=== PATIENT | female | born 1970 | race Caucasian/White ===

== ENCOUNTER 2022-08-25 12:18 | Inpatient (IN) | payer OTHER, BC, SELFPAY ==
[2022-08-25] VITALS (11 sets, daily range): BP systolic 114–172; BP diastolic 64–95; PULSE 69–98; RESP 14–22; TEMP 36.1–36.8; O2SAT 69–100; BMI 44.1
--- NOTE | ~2022-08-25 | CT_ITS ---
EXAMINATION: CT brain wo con DATE: 08/25/2022 14:26 INDICATION: Head injury. TECHNIQUE: Computed tomography (CT) of the head was performed without intravenous contrast. The mA wa s adjusted according to patient size. Iterative reconstruction technique was employed. The dose-lengt h product was 681.00 mGy-cm. COMPARISON: None FINDINGS: There is a large distribution of low-attenuation involving the right frontotemporal parieta l occipital region in the expected distribution of right middle cerebral artery. There is no intracra nial hemorrhage or abnormal mass lesion. The ventricles are normal in size. There is a right otomasto id effusion. There is a left mastoid effusion. There is mucosal thickening in the paranasal sinuses. The orbits are normal. There is a left-sided face hematoma. IMPRESSION: 1. Large acute infarct in the distribution of right middle cerebral artery. Reviewed, dictated and finalized at location E.
--- NOTE | ~2022-08-25 | CT_ITS ---
CT Facial Bones and Cervical Spine Clinical Indication: Trauma Technique: Contiguous axial scans were obtained through the facial bones and cervical spine followed by coronal and sagittal reconstructions. Dose reduction technique was used on this scan by utilizing automated exposure control and iterative reconstruction technique. The dose-length product (DLP) was 658.05 mGy-cm. Findings: CT facial bones: There is mild motion artifact. No definite fractures are identified. The visualized paranasal sinuses are clear. Intraorbital soft tissues appear normal. There is soft tissue swelling i n the left periorbital region and left maxillary region, with small hematoma present. CT cervical spine: Exam degraded by motion artifact. No no definite fractures or subluxation. Unrema rkable visualized bony structures. The intervertebral disc spaces are preserved. No prevertebral sof t tissue swelling. Impression: No fracture is seen in the facial bones. Soft tissue swelling and hematoma formation in the left periorbital region and left maxillary region. No definite fracture or subluxation of the cervical spine. Exam significantly degraded by motion blanco fact. Reviewed, dictated and finalized at location M. Impression: No fracture is seen in the facial bones. Soft tissue swelling and hematoma formation in the left periorbital region and left maxillary region. No definite fracture or subluxation of the cervical spine. Exam significantly d egraded by motion artifact.
--- NOTE | ~2022-08-25 | CT_ITS ---
EXAMINATION: CT brain wo con DATE: 08/28/2022 09:02 INDICATION: Altered mental status. TECHNIQUE: Computed tomography (CT) of the head was performed without intravenous contrast. The mA wa s adjusted according to patient size. Iterative reconstruction technique was employed. The dose-lengt h product was 1664.67 mGy-cm. COMPARISON: Head CT 08/25/2022 FINDINGS: There is a large distribution of low-attenuation involving the right frontotemporal parieta l occipital region and right insula, consistent with acute infarct. There is no intracranial hemorrha ge or abnormal mass lesion. The ventricles are normal in size. There is mild mucosal thickening in th e paranasal sinuses. The orbits are normal. There is a left face hematoma. There is a right mastoid e ffusion. IMPRESSION: 1. Large acute infarct in the distribution of right middle cerebral artery, stable in size from 2022. Reviewed, dictated and finalized at location A. IMPRESSION: 1. Large acute infarct in the distribution of right middle cerebral artery, sta ble in size from 08/25/2022.
--- NOTE | ~2022-08-25 | CT_ITS ---
EXAMINATION: CTA brain carotid DATE: 08/25/2022 15:12 INDICATION: Right-sided cerebral infarct. TECHNIQUE: Computed tomographic angiography (CTA) of the head was performed with 100 mL Omnipaque-350 intravenous contrast. CTA of the neck was performed with intravenous contrast. Automated exposure co ntrol and iterative reconstruction technique were employed. The dose-length product was 1176.06 mGy-c m. Maximum intensity projection and volume rendered 3D-reconstructions were created by the techncindy hair on a separate workstation. COMPARISON: Head CT 08/25/2022 FINDINGS: HEAD CTA: There is no intracranial hemorrhage or abnormal mass lesion. The ventricles are normal in s ize. There is mucosal thickening in the paranasal sinuses. The orbits are normal. There is a hematoma in the left side of the face. There is a right otomastoid effusion. There is a left mastoid effusion . The vertebral arteries are codominant. There is no significant stenosis of basilar artery or the po sterior cerebral arteries. There is no significant stenosis of the intracranial internal carotid everett deborah or anterior cerebral arteries. Anterior communicating artery is normal. The posterior communicat ing arteries are normal. There is no significant stenosis of the middle cerebral arteries. There is a large distribution of cortical hyperemia in the right frontotemporal parietal occipital region and r ight insula. There is multifocal dental disease. NECK CTA: The visualized portions of lungs demonstrate mild atelectasis. There are no pathologically enlarged lymph nodes. There is no significant stenosis of the vertebral arteries. There is no visible plaque in the proximal internal carotid arteries. There is 0% stenosis of the proximal right interna l carotid artery relative to normal distal artery lumen diameter (NASCET criteria). There is 0% steno sis of the proximal left internal carotid artery relative to normal distal artery lumen diameter. The re is mild cervical spondylosis. IMPRESSION: 1. Large distribution of cortical hyperemia in the right frontotemporal parietal occipital region and right insula where low attenuation was described on the recent noncontrast CT, consistent with acute infarct. 2. No aneurysm or significant intracranial calcinosis. 3. 0% stenosis of the proximal internal carotid arteries relative to normal distal artery lumen diame ters (NASCET criteria). 4. Dental disease. Reviewed, dictated and finalized at location E. IMPRESSION: 1. Large distribution of cortical hyperemia in the right frontotemporal parieta l occipital region and right insula where low attenuation was described on the recent noncontrast CT, consistent with acute infarct. 2. No aneurysm or significant intracranial calcinosis. 3. 0% stenosis of the proximal internal carotid arteries relative to normal dis sulma artery lumen diameters (NASCET criteria). 4. Dental disease.
--- NOTE | ~2022-08-25 | CT_ITS ---
EXAMINATION: CT chest abdomen pelvis w con DATE: 08/25/2022 14:30 INDICATION: Left chest and abdominal pain. Fall. TECHNIQUE: Computed tomography (CT) of the chest, abdomen, and pelvis was performed with 100 mL Omnip aque 350 intravenous contrast. Automated exposure control and iterative reconstruction technique were employed. The dose-length product was 1833.22 mGy-cm. COMPARISON: None FINDINGS: CHEST CT: The lungs demonstrate mild atelectasis. No pleural effusion. The heart size is normal. No pericardial effusion. Main pulmonary is enlarged, consistent with pulmonary arterial hypertension. There is mild thoracic spondylosis. ABDOMEN/PELVIS CT: The liver and spleen are normal. There are gallstones in the gallbladder. The pancreas, adrenal gland s, and right kidney are normal. There are cysts in left kidney measuring up to 12 mm. The appendix is normal. There are no dilated loops of bowel. There is mild lumbar spondylosis. L3 is a limbus verteb ra. IMPRESSION: 1. Cholelithiasis. Reviewed, dictated and finalized at location E. IMPRESSION: 1. Cholelithiasis.
--- NOTE | 2022-08-25 13:03 | ED.FALL ---
HPI - Fall General Chief Complaint: Fall Stated Complaint: rolled out of bed Time Seen by Provider: 08/25/22 12:20 History of Present Illness HPI Narrative: 52-year-old female present [facility] after having a fall from her bed and landing on her left side. Patient is primarily nonverbal from her prior CVA. Patient is able to answer yes/no questions. Patient states that she is having head and neck pain. Patient was sent to the ED after having a ground-level fall. Family states that the patient is at her baseline but has had some subtle changes in her behavior and has been more agitated over the last 3 days. Related Data Home Medications Medication Instructions Recorded Confirmed albuterol sulfate 90 mcg/actuation 2 puff inhalation QID PRN 08/25/22 08/25/22 aerosol inhaler (Ventolin HFA) Shortness Of Breath Or Wheezing apixaban 5 mg tablet (Eliquis) 5 mg PO BID 08/25/22 08/25/22 atorvastatin 40 mg tablet 40 mg PO HS 08/25/22 08/25/22 budesonide-formoterol HFA 80 2 puff inhalation BID 08/25/22 08/25/22 mcg-4.5 mcg/actuation aerosol inhaler celecoxib 100 mg capsule (Celebrex) 100 mg PO DAILY 08/25/22 08/25/22 enalapril maleate 5 mg tablet 5 mg PO DAILY 08/25/22 08/25/22 oxycodone 5 mg tablet 5 mg PO Q6H PRN Pain 08/25/22 08/25/22 paroxetine HCl 30 mg tablet 30 mg PO DAILY 08/25/22 08/25/22 trazodone 50 mg tablet 50 mg PO HS PRN Insomnia 08/25/22 08/25/22 Allergies Allergy/AdvReac Type Severity Reaction Status Date / Time MEPERIDINE HCL Allergy Mild Hives Uncoded 08/25/22 19:05 Review of Systems Review of Systems: ROS unobtainable: Yes unobtainable due to medical condition PMFSH Past Medical History Medical History (Updated 08/25/22 @ 21:38 by Jorge Claudio MD) Bronchitis Chronic pain Depression with anxiety Hyperlipidemia Surgical History Surgical History (Updated 08/25/22 @ 19:52 by Nilsa Nolan NP) Surgical history unknown Family History Family History (Updated 08/25/22 @ 19:52 by Nilsa Nolan NP) Unknown No problems noted. Social History Social History (Updated 08/25/22 @ 19:55 by Nilsa Nolan NP) Social History: she lives in [place] and has a daughter chacha casanova. her is clarence kothari. she is listed as a full code Exam Narrative: APPEARANCE: Well-appearing HEAD: normocephalic, atraumatic. EYES: PERRLA/EOMI, conjunctivae clear. NOSE: Normal no drainage NECK: Supple. No adenopathy, no masses. RESPIRATORY: Airway patent, respirations nonlabored. Clear to auscultation bilaterally, no rales, rhonchi, wheezing. CARDIOVASCULAR: Regular rate and rhythm without murmurs rubs or gallops. ABDOMINAL: Soft, nontender, nondistended, normal bowel sounds MUSCULOSKELETAL: Moves all extremities. Strength/ROM intact, No edema, No calf tenderness. NEURO: Alert. Left-sided deficit. Unable to do perform a full neuro exam due to lack of patient cooperation. SKIN: Warm, dry. Normal Color Course Course Emergency Course: 52-year-old female presented [facility] for [facility] after having a fall from bed. CT showed concern for a MCA distribution acute infarct. CTA showed no evidence of acute thrombus. While the patient was sent in for evaluation after the head injury family states that the patient has had some change in behavior over the last 3 days. Patient does take Eliquis. Case was discussed with neurology and patient is being admitted to the hospitalist. Vital Signs Vital signs: Vital Signs Temperature 96.9 F L 08/25/22 12:23 Pulse Rate 72 08/25/22 12:23 Respiratory Rate 22 H 08/25/22 12:23 Blood Pressure 164/93 H 08/25/22 12:23 Pulse Oximetry 96 08/25/22 12:23 Oxygen Delivery Room Air 08/25/22 12:23 Temperature 97.6 F 08/25/22 20:13 Pulse Rate 95 08/25/22 20:13 Respiratory Rate 18 08/25/22 20:13 Blood Pressure 114/64 08/25/22 20:13 Pulse Oximetry 95
--- NOTE | 2022-08-25 13:29 | PC.NURSE ---
Pt attempting to rip off c collar at this time. Rolling on on bed. Pt incontinent of diarrhea. Cleaned pt up, changed linens and attempted to reposition pt. Pt still yelling and ripping padding off of c collar.
[2022-08-25 13:35] LABS: Basophils Percent Auto 0.4 % (0.2-1.2); Hematocrit 36.7 % (37.0-47.0); Hemoglobin 11.8 g/dL (12.0-15.0); Immature Granulocyte Absolute 0.05 K/mm3 (0.00-0.031); Immature Granulocyte Percent A 0.6 % (0-0.5); Lymphocytes Absolute Auto 1.28 K/mm3 (0.9-3.2); Lymphocytes Percent Auto 15.6 % (18.3-44.2); Mean Corpuscular HGB Conc 32.2 g/dl (32-36); Mean Corpuscular Hemoglobin 32.2 pg (26-34); Mean Platelet Volume 11.5 fl (7.4-10.4); Monocytes Absolute Auto 0.6 K/mm3 (0.1-0.6); Monocytes Percent Auto 7.6 % (2.6-8.5); Neutrophils Absolute Auto 6.2 K/mm3 (1.3-6.7); Neutrophils Percent Auto 75.8 % (45.5-73.1); Platelet Count Result 337 k/mm3 (150-375); Red Blood Count 3.67 M/mm3 (4.2-5.4); Red Cell Distribution Width 13.8 % (11.5-14.5); White Blood Count 8.2 K/mm3 (4.5-10.0)
[2022-08-25 14:15] LABS: Alanine Aminotransferase 70 U/L (6-35); Alkaline Phosphatase 69 U/L (38-126); Anion Gap 3 mmol/L (8-16); Aspartate Amino Transferase 63 U/L (14-36); Bilirubin,Total 0.9 mg/dL (0.2-1.3); Blood Urea Nitrogen 17 mg/dL (7-17); Calcium 8.6 mg/dL (8.4-10.2); Carbon Dioxide 33 mmol/L (22-30); Chloride 103 mmol/L (98-107); Estimated CRCL calculation 108 ml/min; Estimated Glomerular Filt Rate > 60; Glucose 100 mg/dL (65-110); Potassium 3.9 mmol/L (3.4-5.0); Sodium 139 mmol/L (137-145)
[2022-08-25] MEDS: LORazepam INJ (*CRX) 2 MG/ML VIAL 1 MG IV PUSH (14:55)
--- NOTE | 2022-08-25 15:27 | PC.NURSE ---
Pt placed on 2 L NC O2 and repositioned due to O2 69%, O2 increased to 98% on 2 L NC.
--- NOTE | 2022-08-25 17:15 | PM.IMHP ---
H&P: HPI History of Present Illness Date/Time: 08/25/22 17:15 Chief Complaint: fall Narrative: this is a 52-year-old female patient who has a history of CVA. She is also nonverbal from her previous CVA. It was reported that the patient fell out of the bed it was brought to the emergency room for evaluation. The CTA showed no evidence of acute thrombus. Her last known normal was approximately 3 days ago. The patient does take Eliquis. She has a black eye to the left eye . Her H&H is 11.8 and 36.7. ast and ALT 70. Head and neck CTA was read as the following1. Large distribution of cortical hyperemia in the right frontotemporal parietal occipital region and right insula where low attenuation was described on the recent noncontrast CT, consistent with acute infarct. 2. No aneurysm or significant intracranial calcinosis. 3. 0% stenosis of the proximal internal carotid arteries relative to normal distal artery lumen diameters (NASCET criteria). 4. Dental disease. chest abdomen pelvis was read as cholelithiasis. Head cervical spine facial bones was read as no acute fracture is seen in the facial bones. Soft tissue swelling and hematoma formation the left periorbital region and left axillary region. No definite fracture or subluxation of the cervical spine. Exam is significantly degraded by motion artifact. Head CT was read as large acute infarct in the distribution of right middle cerebral artery. Neurology has been consulted. The patient was given Ativan in the emergency room. The patient was difficult to arouse due to the medication. The patient was snoring loudly. She was noted to have a bruise to the left periorbital area and dry mucous membranes. Once the patient was admitted to the nursing floor, the staff stated that the patient was complaining of a headache. The patient is being admitted for observation status on the date of service of 08/25/2022. Review of Systems Review of Systems: All systems reviewed & are unremarkable except as noted in HPI and below Constitutional: Constitutional: Reports as per HPI and Reports no additional constitutional complaints Eyes: Eyes: Reports as per HPI and Reports no additional eye complaints ENT: Reports system reviewed and no additional complaints, except as documented and Reports Normal hearing present Cardiovascular: Cardiovascular: Reports no additional cardiovascular complaints Respiratory: Respiratory: Reports no additional respiratory complaints and Reports no additional respiratory complaints Gastrointestinal: Gastrointestinal: Reports as per HPI and Reports no additional gastrointestinal complaints Musculoskeletal: Musculoskeletal: Reports no additional musculoskeletal complaints Integumentary/Breasts: Skin/Breast: Reports system reviewed and no additional complaints, except as docu and Reports as per HPI Neurologic: Reports system reviewed and no additional complaints, except as documented, Reports as per HPI and Reports Normal hearing present Psychiatric: Psychiatric: Reports no additional psychiatric complaints and Reports as per HPI Endocrine: Endocrine: Reports no additional endocrine complaints Hematologic/Lymphatic: Hematologic/Lymphatic: Reports no additional hematologic/lymphatic complaints Allergic/Immunologic: Allergic/Immunologic: Reports no additional allergic/immunologic complaints PMFSH Past Medical History Medical History (Updated 08/25/22 @ 19:52 by Nilsa Nolan NP) Bronchitis Chronic pain Depression with anxiety Hyperlipidemia Surgical History Surgical History (Updated 08/25/22 @ 19:52 by Nilsa Nolan NP) Surgical history unknown Family History Family History (Updated 08/25/22 @ 19:52 by Nilsa Nolan NP) Unknown No problems noted. Social History Social History (Updated 08/25/22 @ 19:55 by Nilsa Nolan NP) Social History: she lives in [place] and has a daughter chacha casanova. her is lawlisa beckett
--- NOTE | 2022-08-25 18:52 | ADMGEN ---
This patient, Rere Loza, was admitted to Medical Room 245-. Patient/family oriented to hospital policies and general routines including ID bracelet, bed and alarms, visiting hours, pain management, procedures, bathroom and other care routines, personal items, smoking policy, room service/diet, and visiting hours. Information on how to activate the Rapid Response Team has been discussed. Patient/Family are encouraged to report perceived risks to care and to ask questions if they do not understand what they are told or what they should do.
[2022-08-26] VITALS (11 sets, daily range): BP systolic 117–146; BP diastolic 65–99; PULSE 62–91; RESP 17–18; TEMP 36.6–36.8; O2SAT 93–100
[2022-08-26 05:39] LABS: Basophils Percent Auto 0.4 % (0.2-1.2); Hematocrit 35.5 % (37.0-47.0); Hemoglobin 11.5 g/dL (12.0-15.0); Immature Granulocyte Absolute 0.04 K/mm3 (0.00-0.031); Immature Granulocyte Percent A 0.5 % (0-0.5); Lymphocytes Absolute Auto 1.52 K/mm3 (0.9-3.2); Lymphocytes Percent Auto 20.8 % (18.3-44.2); Mean Corpuscular HGB Conc 32.4 g/dl (32-36); Mean Corpuscular Volume 98.9 fl (80-100); Mean Platelet Volume 10.6 fl (7.4-10.4); Monocytes Absolute Auto 0.6 K/mm3 (0.1-0.6); Monocytes Percent Auto 7.5 % (2.6-8.5); Neutrophils Absolute Auto 5.2 K/mm3 (1.3-6.7); Neutrophils Percent Auto 70.8 % (45.5-73.1); Platelet Count Result 332 k/mm3 (150-375); Red Blood Count 3.59 M/mm3 (4.2-5.4); Red Cell Distribution Width 13.8 % (11.5-14.5); White Blood Count 7.3 K/mm3 (4.5-10.0)
[2022-08-26 05:50] LABS: Lactic Acid Reflex 0.7 mmol/L (0.7-2.0)
[2022-08-26 05:53] LABS: Alanine Aminotransferase 64 U/L (6-35); Alkaline Phosphatase 78 U/L (38-126); Anion Gap 2 mmol/L (8-16); Aspartate Amino Transferase 55 U/L (14-36); Bilirubin,Total 0.9 mg/dL (0.2-1.3); Blood Urea Nitrogen 16 mg/dL (7-17); Calcium 8.8 mg/dL (8.4-10.2); Carbon Dioxide 37 mmol/L (22-30); Chloride 101 mmol/L (98-107); Estimated CRCL calculation 95 ml/min; Estimated Glomerular Filt Rate > 60; Glucose 104 mg/dL (65-110); Magnesium 2.2 mg/dL (1.6-2.3); Potassium 3.8 mmol/L (3.4-5.0); Sodium 140 mmol/L (137-145)
[2022-08-26] MEDS: CELECOXIB 100 MG CAPSULE PO (09:49)
[2022-08-26] MEDS: ASPIRIN 81 MG ENTERIC TABLET PO (09:49)
[2022-08-26] MEDS: ENALAPRIL MALEATE 5 MG TABLET PO (09:49)
[2022-08-26] MEDS: oxyCODONE HCL (*CRX) 5 MG TAB IR PO (11:50)
--- NOTE | 2022-08-26 11:56 | PM.IMPN ---
Progress Note: A&P Assessment and Plan (1) CVA (cerebral vascular accident): Code(s): I63.9 - Cerebral infarction, unspecified Status: Acute Assessment and Plan: Patient presented to the ED due to having a fall. She has had recent behavioral changes and increased agitation. CT head revealing acute infarct, and 0% stenosis of the proximal internal carotid arteries Neurology consulted MRI of the brain ordered Echocardiogram ordered Patient not a candidate for tPA. Patient to continue aspirin and hold Eliquis until neuro has seen her. PT OT and speech evaluation (2) Depression with anxiety: Code(s): F41.8 - Other specified anxiety disorders Status: Acute Assessment and Plan: Continue with paxil (3) Chronic pain: Code(s): G89.29 - Other chronic pain Status: Acute Assessment and Plan: continue with Celebrex and oxycodone (4) Bronchitis: Code(s): J40 - Bronchitis, not specified as acute or chronic Status: Acute Assessment and Plan: continue with inhaler (5) Hyperlipidemia: Code(s): E78.5 - Hyperlipidemia, unspecified Status: Acute Assessment and Plan: continue with Lipitor Subjective Date/time seen: 08/26/22 11:56 Interval history: patient is not cooperative and nonverbal. She is unable to complete review of systems. Patient appears to be sleepy. She seems comfortable not in any pain. unable to follow commands. Exam Narrative: GENERAL: Comfortable, no acute distress, morbid obesity HENMT: moist mucous membranes EYES: EOM intact b/l NECK: no lymphadenopathy RESPIRATORY: clear to auscultation CARDIO: Distant heart sounds SKIN: no rashes EXTREMITIES: no edema, redness or tenderness Objective Data Vital Signs Vital Signs: Vital Signs - 24 hr 08/25/22 12:23 08/25/22 15:25 08/25/22 15:28 Temperature 96.9 F L Pulse Rate 72 69 Respiratory Rate 22 H 21 H Blood Pressure 164/93 H 129/67 Pulse Oximetry 96 69 L 98 Oxygen Delivery Room Air Oxygen Flow Rate 08/25/22 16:15 08/25/22 15:27 08/25/22 15:14 Temperature Pulse Rate 75 75 Respiratory Rate 14 19 Blood Pressure 128/78 139/79 Pulse Oximetry 100 98 98 Oxygen Delivery Nasal Cannula Oxygen Flow Rate 2 08/25/22 18:00 08/25/22 19:00 08/25/22 18:30 Temperature 98.2 F Pulse Rate 75 84 Respiratory Rate 17 16 Blood Pressure 129/68 172/95 H Pulse Oximetry 99 100 100 Oxygen Delivery Nasal Cannula Oxygen Flow Rate 2 08/25/22 20:13 08/25/22 22:30 08/25/22 20:00 Temperature 97.6 F Pulse Rate 95 98 Respiratory Rate 18 20 Blood Pressure 114/64 Pulse Oximetry 95 95 Oxygen Delivery Autopap Room Air Oxygen Flow Rate 08/26/22 04:00 08/26/22 06:00 08/26/22 09:52 Temperature 98.2 F Pulse Rate 71 91 76 Respiratory Rate 18 17 Blood Pressure 117/81 141/70 H Pulse Oximetry 95 100 Oxygen Delivery Oxygen Flow Rate 08/26/22 08:00 08/26/22 08:00 Temperature Pulse Rate 86 Respiratory Rate Blood Pressure Pulse Oximetry 100 Oxygen Delivery Nasal Cannula Oxygen Flow Rate 3 Intake/Output Intake/Output: Intake & Output 08/23/22 08/24/22 08/25/22 08/26/22 23:59 23:59 23:59 23:59 Intake Total 120 Balance 120 Meds/Results Medications: Active Medications Generic Name Dose Route Start Last Admin Trade Name Freq PRN Reason Stop Dose Admin Albuterol 2 puff 08/25/22 19:41 Albuterol Sulfate (*Sp) Aerosol 1 Puff INHALATION QID PRN Shortness Of Breath Or Wheezing Aspirin 81 mg 08/26/22 09:00 08/26/22 09:49 Aspirin 81 Mg Enteric Tablet PO 81 mg QAM MICHAELLE Administration Atorvastatin Calcium 40 mg 08/25/22 21:00 08/26/22 04:40 Atorvastatin 40 Mg Tablet PO Not Given HS [facility] Celecoxib 100 mg 08/26/22 09:00 08/26/22 09:49 Celecoxib 100 Mg Capsule PO 100 mg DAILY MICHAELLE Administration Enalapril Maleate
--- NOTE | 2022-08-26 12:33 | PC.NURSE ---
Variety Lathe Operator went through Karen Taylor's ([employer]) charting and agree with assessments findings
[2022-08-26] MEDS: PARoxetine 20 MG TABLET 60 MG PO (12:38)
[2022-08-26] MEDS: LORazepam INJ (*CRX) 2 MG/ML VIAL 0.5 MG IV PUSH (13:59)
--- NOTE | 2022-08-26 14:24 | PCSTNOTE ---
Orders for bedside communication evaluation completed. Patient is asleep and unable to stay awake. Will try in the morning.
[2022-08-26] MEDS: FLUTICASONE/SALMETEROL 45-21 MCG INHALER 1 PUFF 2 PUFF INHALATION (20:34)
[2022-08-26] MEDS: ATORVASTATIN 40 MG TABLET PO (21:00)
[2022-08-27] VITALS (13 sets, daily range): BP systolic 125–142; BP diastolic 60–99; PULSE 48–98; RESP 18; TEMP 36.2–36.7; O2SAT 90–100
[2022-08-27] MEDS: oxyCODONE HCL (*CRX) 5 MG TAB IR PO ×3 (00:38→17:06)
[2022-08-27 05:39] LABS: Basophils Percent Auto 0.3 % (0.2-1.2); Hematocrit 33.6 % (37.0-47.0); Immature Granulocyte Absolute 0.03 K/mm3 (0.00-0.031); Immature Granulocyte Percent A 0.5 % (0-0.5); Lymphocytes Absolute Auto 1.47 K/mm3 (0.9-3.2); Mean Corpuscular HGB Conc 32.7 g/dl (32-36); Mean Corpuscular Hemoglobin 32.4 pg (26-34); Mean Corpuscular Volume 98.8 fl (80-100); Mean Platelet Volume 10.4 fl (7.4-10.4); Monocytes Absolute Auto 0.5 K/mm3 (0.1-0.6); Monocytes Percent Auto 8.5 % (2.6-8.5); Neutrophils Absolute Auto 4.3 K/mm3 (1.3-6.7); Neutrophils Percent Auto 67.7 % (45.5-73.1); Platelet Count Result 294 k/mm3 (150-375); Red Cell Distribution Width 13.9 % (11.5-14.5); White Blood Count 6.4 K/mm3 (4.5-10.0)
[2022-08-27 05:57] LABS: Alanine Aminotransferase 54 U/L (6-35); Albumin Level 3.7 g/dL (3.5-5.1); Alkaline Phosphatase 68 U/L (38-126); Anion Gap 2 mmol/L (8-16); Aspartate Amino Transferase 46 U/L (14-36); Bilirubin,Total 0.8 mg/dL (0.2-1.3); Blood Urea Nitrogen 16 mg/dL (7-17); Calcium 8.5 mg/dL (8.4-10.2); Carbon Dioxide 35 mmol/L (22-30); Chloride 102 mmol/L (98-107); Estimated CRCL calculation 108 ml/min; Estimated Glomerular Filt Rate > 60; Glucose 99 mg/dL (65-110); Potassium 3.6 mmol/L (3.4-5.0); Sodium 139 mmol/L (137-145)
[2022-08-27] MEDS: FLUTICASONE/SALMETEROL 45-21 MCG INHALER 1 PUFF 2 PUFF INHALATION ×2 (07:17→19:39)
[2022-08-27] MEDS: ASPIRIN 81 MG ENTERIC TABLET PO (09:04)
[2022-08-27] MEDS: PARoxetine 20 MG TABLET 60 MG PO (09:04)
[2022-08-27] MEDS: CELECOXIB 100 MG CAPSULE PO (09:04)
[2022-08-27] MEDS: ENALAPRIL MALEATE 5 MG TABLET PO (09:04)
[2022-08-27] MEDS: CLOPIDOGREL BISULFATE 75 MG TABLET PO (09:04)
[2022-08-27] MEDS: CYCLOBENZAPRINE HCL 10 MG TABLET PO ×2 (10:19→18:16)
--- NOTE | 2022-08-27 10:54 | PCPTNOTE ---
Patient has bedrest orders, OT talked to hospitalist to get them removed.
--- NOTE | 2022-08-27 11:18 | PC.NURSE ---
Machine Maintenance reviewed Karen Taylor's ([employer]) charting and agrees with assessment findings
[2022-08-27] MEDS: HYDROcodone/acetaminophen (*CRX) 7.5-325 MG TABLET 1 TAB PO (11:42)
[2022-08-27] MEDS: BISACODYL 10 MG SUPPOSITORY RECTAL (11:43)
--- NOTE | 2022-08-27 12:10 | PCSTNOTE ---
Bedside communication evaluation attempted. Patient not responsive to voice commands.
--- NOTE | 2022-08-27 12:43 | WPDNEURCNPN ---
Assessment and Plan Assessment and plan (1) Acute CVA (cerebrovascular accident): Code(s): I63.9 - Cerebral infarction, unspecified Status: Acute Plan 1 right hemispheric stroke for which is being reported she already has had but definitely by CTA looks like it is involving 2 she is already taking apixaban and aspirin I was going to add the Plavix but because of the apixaban I will discontinue that to avoid the bleeding 3 we can get the echocardiogram when feasible [address] scan of the head tomorrow morning to make sure there is no evolving bleed. Consult date: 08/27/22 HPI: Rere Casanova is a 52 year old female Hospital through the emergency room on transfer from the local [facility] after having a fall from her bed and landing on her left side patient is reportedly nonverbal from a previous cerebrovascular accident and only able to answer yes or no questions she was complaining of head and neck pain was sent to the emergency room after having a ground level fall but was noted lead E at her baseline with subtle changes in her behavior and also history of agitation over the last 72 hours. Her medications included apixaban 5 mg twice a day atorvastatin 40 mg at an Elavil 5 mg daily Oxygen 30 mg daily and trazodone 50 mg at night p.r.n. she has ongoing history of chronic pain with hyperlipidemia anxiety with depression and carries a full code status. On initial evaluation in the emergency room CTA documented no evidence of acute thrombus but showed the stroke like distal none the distribution of right middle cerebral artery her vital signs were stable except blood pressure being 164/93 CBC was normal, BMP was normal, and mastoids scan was with AST of [address] scan of the head documented large acute infarct in the distribution of the right middle cerebral artery CT scan of cervical spine and facial bones were negative for the fracture chest and abdomen CT was consistent of cholelithiasis head and neck CTA documented large distribution of cortical hyper EE Kendra in the right fronto temporal parietal region and right insula where low at admission was described on the recent non contrast CT consistent with acute infarct no aneurysm or significant intracranial calcium no cyst 0% stenosis of the proximal internal carotid artery PMFSH Past Medical History Medical History (Updated 08/25/22 @ 21:38 by Jorge Claudio MD) Bronchitis Chronic pain Depression with anxiety Hyperlipidemia Surgical History Surgical History (Updated 08/25/22 @ 19:52 by Nilsa Nolan NP) Surgical history unknown Family History Family History (Updated 08/25/22 @ 19:52 by Nilsa Nolan NP) Unknown No problems noted. Social History Social History (Updated 08/25/22 @ 19:55 by Nilsa Nolan NP) Social History: she lives in [place] and has a daughter chacha casanova. her is clarence kothari. she is listed as a full code Meds Home Medications and Allergies Home Medications Medication Instructions Recorded Confirmed Type albuterol sulfate 90 mcg/actuation 2 puff inhalation QID PRN 08/25/22 08/25/22 History aerosol inhaler (Ventolin HFA) Shortness Of Breath Or Wheezing apixaban 5 mg tablet (Eliquis) 5 mg PO BID 08/25/22 08/25/22 History atorvastatin 40 mg tablet 40 mg PO HS 08/25/22 08/25/22 History budesonide-formoterol HFA 80 2 puff inhalation BID 08/25/22 08/25/22 History mcg-4.5 mcg/actuation aerosol inhaler celecoxib 100 mg capsule (Celebrex) 100 mg PO DAILY 08/25/22 08/25/22 History enalapril maleate 5 mg tablet 5 mg PO DAILY 08/25/22 08/25/22 History oxycodone 5 mg tablet 5 mg PO Q6H PRN Pain 08/25/22 08/25/22 History paroxetine HCl 30 mg tablet 30 mg PO DAILY 08/25/22 08/25/22 History trazodone 50 mg tablet 50 mg PO HS PRN Insomnia 08/25/22 08/25/22 History Allergies Allergy/AdvReac Type Severity Reaction Status Date / Time MEPERIDINE HCL Allergy Mild Hives Uncoded 08/25/22 19:05
--- NOTE | 2022-08-27 13:04 | PM.IMPN ---
Progress Note: A&P Assessment and Plan (1) CVA (cerebral vascular accident): Code(s): I63.9 - Cerebral infarction, unspecified Status: Acute Assessment and Plan: Patient presented to the ED due to having a fall. She has had recent behavioral changes and increased agitation. CT head revealing acute infarct, and 0% stenosis of the proximal internal carotid arteries Neurology consulted MRI cancel due to patient being unable to sit still. Echocardiogram canceled per Neurology for the time being and recommended be done in the future. Patient not a candidate for tPA. Eliquis restarted. Patient not being started on Plavix due to high risk for bleeding. PT OT and speech evaluation Repeat CT scan to the morning. Potential discharge tomorrow. (2) Depression with anxiety: Code(s): F41.8 - Other specified anxiety disorders Status: Acute Assessment and Plan: Continue with paxil (3) Chronic pain: Code(s): G89.29 - Other chronic pain Status: Acute Assessment and Plan: continue with Celebrex and oxycodone (4) Bronchitis: Code(s): J40 - Bronchitis, not specified as acute or chronic Status: Acute Assessment and Plan: continue with inhaler (5) Hyperlipidemia: Code(s): E78.5 - Hyperlipidemia, unspecified Status: Acute Assessment and Plan: continue with Lipitor Subjective Date/time seen: 08/27/22 13:04 Interval history: Patient appears very uncomfortable today. Due to her being nonverbal she is not able to tell me very much. Per Neurology the plan is to repeat CT scan tomorrow to make sure patient is not bleeding into her brain. I would anticipate that if CT scan is normal she could potentially be discharged tomorrow. Review of Systems Review of Systems: ROS unobtainable: Yes unobtainable due to mental status Exam Narrative: GENERAL: Comfortable, no acute distress, morbid obesity HENMT: moist mucous membranes EYES: EOM intact b/l NECK: no lymphadenopathy RESPIRATORY: clear to auscultation CARDIO: Distant heart sounds SKIN: ecchymosis scattered over extremities and left eye EXTREMITIES: no edema, redness or tenderness Objective Data Vital Signs Vital Signs: Vital Signs - 24 hr 08/26/22 13:48 08/26/22 14:01 08/26/22 16:00 Temperature 97.9 F Pulse Rate 78 62 73 Respiratory Rate 18 18 Blood Pressure 146/65 H Pulse Oximetry 100 100 Oxygen Delivery Oxygen Flow Rate 3 Fraction of Inspired Oxygen 32 08/26/22 19:49 08/26/22 20:35 08/26/22 20:00 Temperature 98.2 F Pulse Rate 75 Respiratory Rate 18 Blood Pressure 143/99 H Pulse Oximetry 96 93 Oxygen Delivery Nasal Cannula Nasal Cannula Oxygen Flow Rate 3 3 Fraction of Inspired Oxygen 08/26/22 20:00 08/27/22 00:00 08/26/22 22:30 Temperature Pulse Rate 84 86 Respiratory Rate Blood Pressure Pulse Oximetry Oxygen Delivery Autopap Oxygen Flow Rate Fraction of Inspired Oxygen 08/27/22 04:00 08/27/22 06:00 08/27/22 07:19 Temperature 97.2 F L Pulse Rate 52 L 92 Respiratory Rate 18 Blood Pressure Pulse Oximetry 90 92 Oxygen Delivery Room Air Oxygen Flow Rate Fraction of Inspired Oxygen 08/27/22 08:00 08/27/22 08:00 08/27/22 12:29 Temperature Pulse Rate 75 58 L Respiratory Rate Blood Pressure Pulse Oximetry 92 Oxygen Delivery Nasal Cannula Oxygen Flow Rate 3 Fraction of Inspired Oxygen Intake/Output Intake/Output: Intake & Output 08/24/22 08/25/22 08/26/22 08/27/22 23:59 23:59 23:59 23:59 Intake Total 1280 120 Balance 1280 120 Meds/Results Medications: Active Medications Generic Name Dose Route Start Last Admin Trade Name Freq PRN Reason Stop Dose Admin Albuterol 2 puff 08/25/22 19:41 Albuterol Sulfate (*Sp) Aerosol 1 Puff INHALATION QID PRN Shortness Of Breath Or Wheezing Apixaban 5 mg 05/
--- NOTE | 2022-08-27 13:17 | PCOTNOTE ---
OT reached out to Francia Viera, hospitalist for patient, about removing bedrest orders.
[2022-08-27] MEDS: APIXABAN 5 MG TABLET PO (20:42)
[2022-08-27] MEDS: ATORVASTATIN 40 MG TABLET PO (20:42)
[2022-08-28] VITALS: PULSE 59
[2022-08-28 04:00] VITALS: PULSE 99
[2022-08-28 04:34] LABS: Basophils Percent Auto 0.5 % (0.2-1.2); Hemoglobin 11.9 g/dL (12.0-15.0); Immature Granulocyte Absolute 0.05 K/mm3 (0.00-0.031); Immature Granulocyte Percent A 0.8 % (0-0.5); Lymphocytes Absolute Auto 1.52 K/mm3 (0.9-3.2); Lymphocytes Percent Auto 23.6 % (18.3-44.2); Mean Corpuscular HGB Conc 32.2 g/dl (32-36); Mean Corpuscular Hemoglobin 31.6 pg (26-34); Mean Corpuscular Volume 98.1 fl (80-100); Mean Platelet Volume 10.4 fl (7.4-10.4); Monocytes Absolute Auto 0.5 K/mm3 (0.1-0.6); Monocytes Percent Auto 7.6 % (2.6-8.5); Neutrophils Absolute Auto 4.4 K/mm3 (1.3-6.7); Neutrophils Percent Auto 67.5 % (45.5-73.1); Platelet Count Result 358 k/mm3 (150-375); Red Blood Count 3.77 M/mm3 (4.2-5.4); Red Cell Distribution Width 13.8 % (11.5-14.5); White Blood Count 6.5 K/mm3 (4.5-10.0)
[2022-08-28 04:56] LABS: Alanine Aminotransferase 54 U/L (6-35); Alkaline Phosphatase 74 U/L (38-126); Anion Gap 4 mmol/L (8-16); Aspartate Amino Transferase 50 U/L (14-36); Blood Urea Nitrogen 17 mg/dL (7-17); Calcium 8.7 mg/dL (8.4-10.2); Carbon Dioxide 34 mmol/L (22-30); Chloride 102 mmol/L (98-107); Estimated CRCL calculation 95 ml/min; Estimated Glomerular Filt Rate > 60; Glucose 107 mg/dL (65-110); Potassium 3.8 mmol/L (3.4-5.0); Sodium 140 mmol/L (137-145)
--- NOTE | 2022-08-28 05:33 | PC.NURSE ---
After brushing out patient's hair, this nurse found a new wound on the left side of patient's head. The hair around the wound had been shaved so would was present on arrival, just unable to be seen due to the matted hair. Wound documented on flowsheet, wound team consulted.
[2022-08-28 05:39] VITALS: BP 126/99; PULSE 58; RESP 18; TEMP 36.7; O2SAT 98
--- NOTE | 2022-08-28 07:57 | PCOTNOTE ---
Attempted to see for OT evaluation this AM. Per RN the patient was up all night agitated and is finally resting. Will continue to attempt. She also still has bedrest orders at this time.
[2022-08-28 08:00] VITALS: PULSE 63
--- NOTE | 2022-08-28 08:14 | PCPTNOTE ---
Per chart review, per RN the patient was up all night agitated and is finally resting. Will continue to attempt. She also still has bedrest orders at this time. Will recheck status as able to perform PT evaluation
[2022-08-28 08:26] VITALS: O2SAT 94
[2022-08-28] MEDS: FLUTICASONE/SALMETEROL 45-21 MCG INHALER 1 PUFF 2 PUFF INHALATION (08:26)
[2022-08-28] MEDS: CELECOXIB 100 MG CAPSULE PO (09:28)
[2022-08-28] MEDS: ASPIRIN 81 MG ENTERIC TABLET PO (09:28)
[2022-08-28] MEDS: APIXABAN 5 MG TABLET PO (09:28)
[2022-08-28] MEDS: PARoxetine 20 MG TABLET 60 MG PO (09:28)
[2022-08-28] MEDS: ENALAPRIL MALEATE 5 MG TABLET PO (09:28)
[2022-08-28] MEDS: oxyCODONE HCL (*CRX) 5 MG TAB IR PO (09:29)
--- NOTE | 2022-08-28 10:26 | PM.DS ---
DS: Admitting Diagnosis Discharge Date 08/28/22 Admitting Diagnosis CVA DS: Discharge Diagnosis Discharge Diagnosis (1) CVA (cerebral vascular accident): Code(s): I63.9 - Cerebral infarction, unspecified Status: Acute Assessment and Plan: Patient presented to the ED due to having a fall. She has had recent behavioral changes and increased agitation. CT head revealing acute infarct, and 0% stenosis of the proximal internal carotid arteries Neurology consulted MRI cancel due to patient being unable to sit still. Echocardiogram canceled per Neurology for the time being and recommended be done in the future. Patient not a candidate for tPA. Eliquis restarted. Patient not being started on Plavix due to high risk for bleeding. PT OT and speech evaluation Repeat CT remains unchanged (2) Depression with anxiety: Code(s): F41.8 - Other specified anxiety disorders Status: Acute Assessment and Plan: Continue with paxil (3) Chronic pain: Code(s): G89.29 - Other chronic pain Status: Acute Assessment and Plan: continue with Celebrex and oxycodone (4) Bronchitis: Code(s): J40 - Bronchitis, not specified as acute or chronic Status: Acute Assessment and Plan: continue with inhaler (5) Hyperlipidemia: Code(s): E78.5 - Hyperlipidemia, unspecified Status: Acute Assessment and Plan: continue with Lipitor DS: Summary Hospital Course Hospital Course: This is a 52-year-old female with a past medical history of CVA that rendered her nonverbal, hyperlipidemia anxiety and depression the presented to the ED on 08/25/2022 for evaluation of a fall. Patient does take Eliquis chronically. On presentation patient had multiple bruises. Eliquis was then put on hold. CTA of the head and neck revealing acute infarct and 0% stenosis of the bilateral internal carotid arteries. Neurology consulted. Patient was scheduled to get MRI and echocardiogram. MRI was canceled due to patient unable to sit still through imaging. Echocardiogram deferred to be done as an outpatient per Neurology. PT and OT and speech evaluated patient. Patient did not meet criteria for tPA. Repeat CT scan performed and was unchanged from previous CT. Neurology recommended restarting patient's Eliquis. Spoken with neurologist and he is cleared patient for discharge. Patient's labs and vital signs stable on day of discharge and she is medically cleared. Time Spent with Patient Time attestation: Total time spent providing and/or coordinating discharge services: Exam Narrative: GENERAL: Comfortable, no acute distress, morbid obesity HENMT: moist mucous membranes EYES: EOM intact b/l NECK: no lymphadenopathy RESPIRATORY: clear to auscultation CARDIO: Distant heart sounds SKIN: ecchymosis scattered over extremities and left eye EXTREMITIES: no edema, redness or tenderness DS: Data Data Completed and Pending Labs on day of discharge: Labs from last 24 hours 08/28/22 04:16 WBC 6.5 RBC 3.77 L Hgb 11.9 L Hct 37.0 MCV 98.1 MCH 31.6 MCHC 32.2 RDW 13.8 Plt Count 358 MPV 10.4 Immature Gran % (Auto) 0.8 H Neut % (Auto) 67.5 Lymph % (Auto) 23.6 [place] % (Auto) 7.6 Eos % (Auto) 0.0 Baso % (Auto) 0.5 Lymph # (Auto) 1.52 [place] # (Auto) 0.5 Eos # (Auto) 0.0 Baso # (Auto) 0.0 Abs Immat Gran (auto) 0.05 H Absolute Neuts (auto) 4.4 Absolute Nucleated RBC 0.0 Nucleated RBC % 0.0 Sodium 140 Potassium 3.8 Chloride 102 Carbon Dioxide 34 H Anion Gap 4 L BUN 17 Creatinine 0.80 Estim Creat Clear Calc 95 Estimated GFR > 60 Glucose 107 Calcium 8.7 Total Bilirubin 1.0 AST 50 H ALT 54 H Alkaline Phosphatase 74 Total Protein 7.0 Albumin 4.0 Discharge Plan Discharge Attending physician on discharge: Corbin Benavides Consulting providers: Natty Loera Discharging Clinician: Francia Viera
--- NOTE | 2022-08-28 10:40 | PCSTNOTE ---
Communication/Language evaluation attempted. Pt presents in a restless state as she speech language pathologist the side of her bed and at times shouts. She was unable to follow simple one- step directions and no words produced. Nsg reported she was previously able to respond to yes/no questions but has since regressed and is no longer communicating. Therapy would be of little benefit with pt in current state. In consideration of changes in her status from day to day, we can attempt a communication evaluation tomorrow if she is still here.
[2022-08-28 12:37] LABS: EDCOVIDSCREEN Negative (Negative)
== END 2022-08-28 13:35 | DRG 65 ==
LOC: ANHED 12:55 → ANH2MED 17:49
PROVIDERS: Nurse Practitioner; Admitting Provider Hospitalist; Emergency Provider Emergency Medicine; PCP Internal Medicine Gastroenterology; Visit Provider Internal Medicine Critical Care Medicine
DX: I63.9 Cerebral infarction, unspecified (principal); Z68.41 Body mass index [BMI] 40.0-44.9, adult; F41.8 Other specified anxiety disorders; G89.29 Other chronic pain; J40 Bronchitis, not specified as acute or chronic; E78.5 Hyperlipidemia, unspecified; Z20.822 Contact with and (suspected) exposure to COVID-19; W06.XXXA Fall from bed, initial encounter; E66.01 Morbid (severe) obesity due to excess calories
CPT/HCPCS: 36415; 70450; 70486; 70496; 70498; 71260; 72125; 74177; 80053; 83605; 83735; 84443; 85025; 87426; 93880; 94640; 96374; 99285; A9270; C9803; G0378; G0379; J2060; Q9967

== ENCOUNTER 2022-09-12 09:37 | Inpatient (IN) | payer BC, OTHER, SELFPAY ==
[2022-09-12] VITALS (56 sets, daily range): BP systolic 74–130; BP diastolic 29–77; PULSE 66–126; RESP 19–100; TEMP 37–38.7; O2SAT 20–100
--- NOTE | 2022-09-12 | ECHO_ITS ---
Patient Info Name: Rere Loza Age: 52 years : 1970 Gender: Female Ht: 66 in Wt: 257 lbs BSA: 2.39 m2 HR: 97 bpm BP: 110 / 71 mmHg Heart Rhythm: Sinus Rhythm Technical Quality: Poor Exam Date: 09/12/2022 3:21 PM Exam Location: [facility] Card Pulmonary Patient Status: Inpatient Admit Date: 09/12/2022 Staff Ordering Physician: Curly Hansen MD Electronic Equipment Maint Tech: Antonia Roy RDCS Attending Provider: Jean Claude Martinez MD Referring Physician: Jade LAUREANO; Exam Type: CA echo dop color flow w con Study Info Indications - SHOCK Complete two-dimensional, color flow and Doppler transthoracic echocardiogram is performed with contrast to opacify the left ventricle and to improve the deliniation of the left ventricle endocardial borders. Contrast/Agitated Saline Contrast/Ag. Saline: Definity Amount: 3.00 ml Administered By: Antonia Roy RDCS Existing IV Access: Yes IV Access Condition: patent with no signs of infiltration Summary 1. Technically difficult study with limited views. 2. Left ventricular chamber dimension is normal. 3. Left ventricular systolic function is normal, estimated at 60-65%. 4. The left ventricular diastolic function is grade I diastolic dysfunction. 5. Right ventricular chamber dimension is normal. 6. Right ventricular systolic function is reduced. 7. There is trace mitral valve regurgitation. 8. There is trace tricuspid valve regurgitation. 9. Normal inferior vena cava with >50% collapse upon inspiration consistent with normal right atrial pressure, 3 mmHg. 10. There is small anterior pericardial effusion. Left Ventricle Left ventricular chamber dimension is normal. Left ventricular systolic function is normal, estimated at 60-65%. The left ventricular diastolic function is grade I diastolic dysfunction. Right Ventricle Right ventricular chamber dimension is normal. Right ventricular systolic function is reduced. Left Atria Left atrial chamber dimension is normal. Right Atria Right atrial chamber dimension is normal. Atrial Septum Interatrial septum is not well visualized. Aortic Valve The aortic valve is not well visualized. There is no aortic valve regurgitation. Pulmonic Valve The pulmonic valve is not well visualized. Mitral Valve There is trace mitral valve regurgitation. Tricuspid Valve There is trace tricuspid valve regurgitation. Pericardium/Pleural There is small anterior pericardial effusion. Inferior Vena Cava Normal inferior vena cava with >50% collapse upon inspiration consistent with normal right atrial pressure, 3 mmHg. Aorta The aortic root size at the sinus of Valsalva is not well visualized. Left Ventricular Outflow Tract Name Value Normal LVOT Doppler LVOT Peak Gradient 2 mmHg LVOT Mean Gradient 1 mmHg LVOT VTI 7.55 cm LVOT VTI/AV VTI Ratio 0.64 Pulmonic Valve Name Value Normal RVOT Doppler RVOT Peak Gradient
--- NOTE | ~2022-09-12 | XR_ITS ---
Portable chest x-ray Comparison: 09/21/2022 Clinical History: Respiratory failure Findings: Endotracheal tube, NG tube, and right IJ line are unchanged. Lungs are clear, without foca l consolidation or pleural effusion. Cardiomediastinal silhouette is stable. Bones and soft tissues are unremarkable. Impression: Support tubes, as above. Clear lungs. Reviewed, dictated and finalized at location . Impression: Support tubes, as above. Clear lungs.
--- NOTE | ~2022-09-12 | XR_ITS ---
Portable chest x-ray Comparison: 09/27/2022 Clinical History: Respiratory failure Findings: Tracheostomy cannula present. There is hazy left basilar airspace disease and probable min imal left pleural effusion. Right lung clear. Cardiomediastinal silhouette is stable. Bones and soft tissues are unremarkable. Impression: Probable minimal left pleural effusion with left basilar atelectasis and/or pneumonia. Correlate clin ically. Tracheostomy cannula. Reviewed, dictated and finalized at location . Impression: Probable minimal left pleural effusion with left basilar atelectasis and/or pne umonia. Correlate clinically. Tracheostomy cannula.
--- NOTE | ~2022-09-12 | XR_ITS ---
Portable chest x-ray Comparison: 09/26/2022 Clinical History: Respiratory failure Findings: Tracheostomy cannula is present. Minimal bibasilar hazy airspace disease present. Question able minimal pleural effusion. Cardiomediastinal silhouette is stable. Bones and soft tissues are un remarkable. Impression: Suspected minimal left pleural effusion with minimal bibasilar pulmonary edema. Correlate clinically for infection. Tracheostomy cannula. Reviewed, dictated and finalized at [facility]. Impression: Suspected minimal left pleural effusion with minimal bibasilar pulmonary edema. Correlate clinically for infection. Tracheostomy cannula.
--- NOTE | ~2022-09-12 | XR_ITS ---
Portable chest x-ray Comparison: 09/28/2022 Clinical History: Respiratory failure Findings: Tracheostomy cannula is in place. Probable minimal left pleural effusion. Right lung clear . Cardiomediastinal silhouette is stable. Bones and soft tissues are unremarkable. Impression: Probable minimal left pleural effusion. Tracheostomy cannula. Reviewed, dictated and finalized at [facility]. Impression: Probable minimal left pleural effusion. Tracheostomy cannula.
--- NOTE | ~2022-09-12 | XR_ITS ---
Semierect portable view of the abdomen Clinical history: NG tube placement Findings: NG tube in satisfactory position. Bowel gas pattern is nonspecific. No evidence for obstruc tion or free air. No abnormal mass lesion or calcification is seen. Osseous structures are intact. Impression: NG tube in satisfactory position. Reviewed, dictated and finalized at [facility]. Impression: NG tube in satisfactory position.
--- NOTE | ~2022-09-12 | XR_ITS ---
Portable chest x-ray Comparison: 09/24/2022 Clinical History: Respiratory failure Findings: Tracheostomy cannula and right IJ line are in satisfactory positions. Probable minimal lef t pleural effusion and/or left basilar atelectasis. Right lung clear. Cardiomediastinal silhouette is stable. Bones and soft tissues are unremarkable. Impression: Support tubes, as above. Minimal left basilar atelectasis and/or effusion. Reviewed, dictated and finalized at location . Impression: Support tubes, as above. Minimal left basilar atelectasis and/or effusion.
--- NOTE | ~2022-09-12 | US_ITS ---
EXAMINATION: US abdomen limited DATE: 09/12/2022 23:21 INDICATION: Elevated liver function tests TECHNIQUE: Multiple grayscale and Doppler ultrasound images of the abdomen were obtained. COMPARISON: CT, 08/25/2022 FINDINGS: The head, body, and tail of the pancreas are normal. The liver is normal with normal echoge nicity and echotexture. No surface nodularity. Normal hepatopetal flow in the main portal vein. A sto ne is present in the mildly distended gallbladder. No pericholecystic fluid or gallbladder wall thick ening are identified. The normal common bile duct measures 3 mm. IMPRESSION: 1. Cholelithiasis and mild gallbladder distention without gallbladder wall thickening or pericholecys tic fluid. Findings are equivocal for cholecystitis. Consider nuclear hepatobiliary scan. Reviewed, dictated and finalized at location A. IMPRESSION: 1. Cholelithiasis and mild gallbladder distention without gallbladder wall thic kening or pericholecystic fluid. Findings are equivocal for cholecystitis. Cons ider nuclear hepatobiliary scan.
--- NOTE | ~2022-09-12 | XR_ITS ---
XR chest 1V portable DATE: 09/17/2022 05:40 INDICATION: Respiratory failure TECHNIQUE: Portable AP chest on 09/17/2022 at 0526 hours COMPARISON: 09/16/2022 portable AP chest at 0517 hours FINDINGS: NG tube in gastric fundus. ET tube tip 5.1 cm above jessica in satisfactory position. Right internal jugular central venous catheter tip overlies the right atrium. Cardiomegaly. There is bibasilar infiltrate and/atelectasis, left greater than right, with little interval change s neo 09/16/2022. Osteopenia. IMPRESSION: - Bibasilar infiltrate and/atelectasis, left greater than right, not significantly change d since 09/16/2022 Reviewed, dictated and finalized at location A. IMPRESSION: - Bibasilar infiltrate and/atelectasis, left greater than right, no t significantly changed since 09/16/2022
--- NOTE | ~2022-09-12 | XR_ITS ---
EXAMINATION: XR chest ET placement INDICATION: Endotracheal tube insertion TECHNIQUE: Portable AP chest at 1016 hours COMPARISON: None available FINDINGS: The endotracheal tube ends approximately 2 cm above the jessica. The tip of the nasogastric tube is at the gastroesophageal junction (tube has been advanced at the time of interpretation). Ther e are airspace opacities of the right lung base. There appears to be discoid atelectasis in the left lung base. Small pleural effusions are suggested. There is no pneumothorax. IMPRESSION: 1. Endotracheal tube 2 cm above the jessica. 2. Right basilar airspace opacity, atelectasis versus pneumonia. 3. Possible small pleural effusions. Reviewed, dictated and finalized at location A.
--- NOTE | ~2022-09-12 | XR_ITS ---
XR chest 1V portable DATE: 09/24/2022 05:04 INDICATION: Respiratory failure TECHNIQUE: Portable AP chest on 09/24/2022 at 0453 hours COMPARISON: 09/23/2022 portable AP chest at 0532 hours FINDINGS: Right internal jugular central venous catheter tip overlies the upper right atrium. Tracheo stomy tube in satisfactory position. No pulmonary infiltrate or consolidation, pleural effusion or pulmonary vascular congestion or pneum othorax is detected. IMPRESSION: No active pulmonary disease Reviewed, dictated and finalized at location A. IMPRESSION: No active pulmonary disease
--- NOTE | ~2022-09-12 | XR_ITS ---
EXAMINATION: XR chest 1V portable INDICATION: Respiratory failure TECHNIQUE: Portable AP chest at 0513 hours COMPARISON: 09/12/2022 FINDINGS: The endotracheal tube ends approximately 4.7 cm above the jessica. The tip of the nasogastri c tube is just beyond the gastroesophageal junction. The proximal side port is in the distal esophagu s. A right internal jugular central venous catheter ends with its tip in the proximal right atrium. R ight basilar airspace opacities are slightly increased. There is discoid atelectasis of the left lung base. Small pleural effusions are again suggested. There is no pneumothorax. IMPRESSION: 1. Nasogastric tube partially retracted into the esophagus. Recommend advancing at least 8 cm. 2. Slightly increased right basilar airspace opacity, consistent with atelectasis versus pneumonia. 3. Possible small pleural effusions. Reviewed, dictated and finalized at location A. IMPRESSION: 1. Nasogastric tube partially retracted into the esophagus. Recommend advancing at least 8 cm. 2. Slightly increased right basilar airspace opacity, consistent with atelectas is versus pneumonia. 3. Possible small pleural effusions.
--- NOTE | ~2022-09-12 | XR_ITS ---
Portable chest x-ray Comparison: 09/19/2022 Clinical History: Respiratory failure Findings: Endotracheal tube, NG tube, and right IJ line are unchanged. There is mild bibasilar pulmo nary edema/atelectasis. Cardiomediastinal silhouette is stable. Bones and soft tissues are unremarka ble. Impression: Mild bibasilar pulmonary edema/atelectasis. Support tubes, as above. Reviewed, dictated and finalized at location . Impression: Mild bibasilar pulmonary edema/atelectasis. Support tubes, as above.
--- NOTE | ~2022-09-12 | CT_ITS ---
EXAMINATION: CT brain wo con DATE: 09/16/2022 11:41 INDICATION: Hypoxic injury, septic shock. Encephalopathy. History of cerebrovascular accident. TECHNIQUE: Computed tomography (CT) of the head was performed without intravenous contrast. The mA wa s adjusted according to patient size. Iterative reconstruction technique was employed. Exam dose: 60 5.33 mGy-cm total exam DLP. COMPARISON: 09/12/2022 CT brain 08/28/2022 CT brain 08/25/2022 CT brain and CTA brain carotid FINDINGS: There is further diminished attenuation of the right temporal, parietal and occipital regio n consistent with evolving ischemic right middle cerebral artery territory cerebrovascular infarct. N o hemorrhage is noted. There is effacement of the cortical sulci bilaterally, right greater than left. The cortical sulci ar e effaced on the left since 08/25/2022, consistent with diffuse brain swelling. Additionally, there is prominent diminished attenuation of the cerebral white matter since 08/25/2022, which is likely secondary to the clinically reported hypoxic injury. No intracranial hemorrhage or subdural or epidural hematoma or midline shift is detected. There are right mastoid effusions. Left mastoid air cells and the paranasal sinuses appear unremarkab le. No fracture or bone destruction of the cranial vault is detected. IMPRESSION: Recent large right middle cerebral artery territory cerebrovascular infarct There is effacement of the cortical sulci bilaterally consistent with brain swelling Interval diminished attenuation of the cerebral white matter consistent with hypoxic injury Reviewed, dictated and finalized at Location A. Reviewed, dictated and finalized at location A. IMPRESSION: Recent large right middle cerebral artery territory cerebrovascula r infarct There is effacement of the cortical sulci bilaterally consistent with brain swe lling Interval diminished attenuation of the cerebral white matter consistent with hy poxic injury
--- NOTE | ~2022-09-12 | XR_ITS ---
XR chest port-a-cath/central 09/12/2022 11:07 Indication: Central line placement Procedure: AP portable chest Comparison: 09/12/2022 Findings: NG tube in the stomach. Endotracheal tube tip 3.7 cm above the jessica. Right IJ central zulay e tip in the right atrium. There is bibasilar atelectasis/scarring. No pneumothorax. Impression: 1: Right IJ central line tip in the right atrium. 2: Stable bibasilar atelectasis/scarring. Reviewed, dictated and finalized at location L. Impression: 1: Right IJ central line tip in the right atrium. 2: Stable bibasilar atelectasis/scarring.
--- NOTE | ~2022-09-12 | XR_ITS ---
EXAMINATION: XR chest 1V portable INDICATION: Respiratory failure TECHNIQUE: Portable AP chest at 0525 hours COMPARISON: 09/14/2022 FINDINGS: The endotracheal tube ends approximately 4.9 cm above the jessica. The nasogastric tube is i n the stomach. A right internal jugular central venous catheter ends with its tip in the proximal rig ht atrium. Right basilar airspace opacities are stable. There is a small left pleural effusion with m inimal left basilar airspace opacity. No pneumothorax is identified. The cardiomediastinal silhouette is stable. IMPRESSION: 1. Small left pleural effusion with minimal left basilar airspace opacity and stable right basilar ai rspace opacity, atelectasis versus pneumonia. Reviewed, dictated and finalized at location A. IMPRESSION: 1. Small left pleural effusion with minimal left basilar airspace opacity and s table right basilar airspace opacity, atelectasis versus pneumonia.
--- NOTE | ~2022-09-12 | XR_ITS ---
EXAMINATION: XR chest 1V portable INDICATION: Respiratory failure TECHNIQUE: Portable AP chest at 0519 hours COMPARISON: 09/13/2022 FINDINGS: The endotracheal tube ends approximately 4.8 cm above the jsesica. The nasogastric tube is i n the stomach. A right internal jugular central venous catheter ends with its tip in the proximal rig ht atrium. There is stable airspace opacity of the right lung base. Discoid atelectasis is noted in t he left lower lobe. There appear to be small pleural effusions. No pneumothorax is identified. IMPRESSION: 1. Stable right basilar airspace opacity, consistent with atelectasis versus pneumonia. 2. Probable small pleural effusions. Reviewed, dictated and finalized at location A. IMPRESSION: 1. Stable right basilar airspace opacity, consistent with atelectasis versus pn eumonia. 2. Probable small pleural effusions.
--- NOTE | ~2022-09-12 | XR_ITS ---
Portable chest x-ray Comparison: 09/20/2022 Clinical History: Respiratory failure Findings: Endotracheal tube, NG tube, and right IJ line are unchanged. There is minimal bibasilar martinez ziness. Cardiomediastinal silhouette is stable. Bones and soft tissues are unremarkable. Impression: Stable support tubes. Minimal bibasilar pulmonary edema or atelectasis, less likely infection. Reviewed, dictated and finalized at location . Impression: Stable support tubes. Minimal bibasilar pulmonary edema or atelectasis, less likely infection.
--- NOTE | ~2022-09-12 | XR_ITS ---
No active cardiopulmonary disease Tracheostomy tube in satisfactory position DATE: 09/23/2022 05:43 INDICATION: Respiratory failure TECHNIQUE: Portable upright AP view on 09/19/2022 at 0532 hours COMPARISON: 09/22/2022 portable AP chest at 0515 hours FINDINGS: Placement of ET tube with tracheostomy tube, which is in satisfactory position. Removal of NG tube. Right internal jugular central venous catheter tip near the superior cavoatrial junction. Heart size is within normal range. No pulmonary infiltrate or consolidation, pleural effusion or pulm onary vascular congestion or pneumothorax. IMPRESSION: Replacement of ET tube with tracheostomy tube No active cardiopulmonary disease Reviewed, dictated and finalized at location A.
--- NOTE | ~2022-09-12 | XR_ITS ---
EXAMINATION: XR abdomen NG/feed tube insert INDICATION: Nasogastric tube placement TECHNIQUE: Portable AP KUB-NG at 1020 hours COMPARISON: None available FINDINGS: The nasogastric tube has been advanced into the stomach. There are small pleural effusions. There are minimal opacities of the lung bases. IMPRESSION: 1. Nasogastric tube advanced into the stomach. Reviewed, dictated and finalized at location A.
--- NOTE | ~2022-09-12 | US_ITS ---
EXAMINATION: US renal BI DATE: 09/12/2022 16:40 INDICATION: Acute kidney injury rule out hydronephrosis TECHNIQUE: Multiple grayscale and Doppler ultrasound images of the kidneys were obtained. COMPARISON: CT CAP 08/25/2022 FINDINGS: The right kidney measures 9.9 x 4.2 x 5.3 cm. The left kidney measures 11.4 x 5.7 x 5.7 cm. The kidne ys demonstrate normal parenchymal echogenicity. Simple left midpole cyst There is no hydronephrosis. The bladder is decompressed by a Brandon catheter. IMPRESSION: Bladder decompressed by a Brandon catheter and therefore not well evaluated. Otherwise, unremarkable re nal sonogram findings. No evidence of hydronephrosis. Reviewed, dictated and finalized at location K. IMPRESSION: Bladder decompressed by a Brandon catheter and therefore not well evaluated. Othe rwise, unremarkable renal sonogram findings. No evidence of hydronephrosis.
--- NOTE | ~2022-09-12 | XR_ITS ---
XR chest 1V portable DATE: 09/16/2022 05:33 INDICATION: Respiratory failure TECHNIQUE: Portable AP chest on 09/16/2022 at 0517 hours COMPARISON: 09/15/2022 portable AP chest at 0525 hours FINDINGS: ET tube is identified in position 5 cm above jessica. NG tube in gastric fundus. Right inter nal jugular central venous catheter tip overlies the right atrium. No pneumothorax. There are bilateral lower lung infiltrates and/atelectasis, left greater than right. Minimal blunting of the costophrenic angles, suggesting small pleural effusions. There is pulmonary v ascular redistribution which may indicate mild pulmonary venous hypertension. Diffuse osteopenia. IMPRESSION: Persistent bilateral lower lung infiltrate and/atelectasis, left greater than right Mild congestive changes are suggested Reviewed, dictated and finalized at location A. IMPRESSION: Persistent bilateral lower lung infiltrate and/atelectasis, left gr eater than right Mild congestive changes are suggested
--- NOTE | ~2022-09-12 | NM_ITS ---
EXAMINATION: NM hepatobiliary wo pharm DATE: 09/18/2022 15:03 INDICATION: Elevated liver function tests. COMPARISON: None. TECHNIQUE: 4 mCi Tc-99m mebrofenin (Choletec) was administered intravenously. Scintigraphic images o f the abdomen were obtained for one hour. At the 1 hour time point 8 oz Ensure was administered per t he patient's nasogastric tube and imaging was continued for 60 minutes. Gallbladder ejection fraction was calculated by the technologist. FINDINGS: There is normal clearance of radiotracer from the blood pool. There is homogeneous tracer u ptake by the liver. The dome of the right hepatic lobe via significantly higher than the left hepatic lobe suggesting elevation the right hemidiaphragm. Activity progresses to the bowel and gallbladder. The gallbladder ejection fraction (GBEF) is 16%. Note that with this technique, normal GBEF >= 33%. IMPRESSION: 1. Gallbladder ejection fraction below the lower limits of normal consistent with gallbladder dysfun ction or chronic cholecystitis in the appropriate clinical setting. Reviewed, dictated and finalized at location A. IMPRESSION: 1. Gallbladder ejection fraction below the lower limits of normal consistent w ith gallbladder dysfunction or chronic cholecystitis in the appropriate clinica l setting.
--- NOTE | ~2022-09-12 | US_ITS ---
US arterial ankle brachial ind INDICATION: Cold right foot. TECHNIQUE: Segmental pressures and plethysmographic and Doppler waveforms of the brachial and lower e xtremity arteries were obtained. COMPARISON: None. FINDINGS: Right and left brachial artery pressures of 127 mm Hg and the left brachial artery could not be occlu ded. The right ankle-brachial index (SUJATHA) is 1.37 (normal >= 0.9-1.0). The right great toe-brachial index (TBI) is 0.66 (normal >= 0.60). The left SUJATHA is 1.24. The left TBI is 0.49. IMPRESSION: 1. Normal right ankle and toe brachial indices. 2: Normal left ankle-brachial index. Diminished left toe brachial index measuring 0.49, consistent wi th mild peripheral arterial disease. Reviewed, dictated and finalized at location A. IMPRESSION: 1. Normal right ankle and toe brachial indices. 2: Normal left ankle-brachial index. Diminished left toe brachial index measuri ng 0.49, consistent with mild peripheral arterial disease.
--- NOTE | ~2022-09-12 | XR_ITS ---
Portable chest x-ray Comparison: 09/25/2022 Clinical History: Respiratory failure Findings: Tracheostomy cannula is in place. Focal left basilar airspace disease present. Right lung clear. Cardiomediastinal silhouette is stable. Bones and soft tissues are unremarkable. Impression: Tracheostomy cannula. Probable left basilar atelectasis versus possibly pneumonia. Correlate clinically. Reviewed, dictated and finalized at location . Impression: Tracheostomy cannula. Probable left basilar atelectasis versus possibly pneumonia. Correlate clinical ly.
--- NOTE | ~2022-09-12 | XR_ITS ---
Portable chest x-ray Comparison: 09/17/2022 Clinical History: Respiratory failure Findings: Endotracheal tube, NG tube are in satisfactory positions. Right IJ line unchanged, tip pro bably in the right atrium. Minimal left pleural effusion present. There is probable minimal bibasilar pulmonary edema/atelectasis. Cardiomediastinal silhouette is stable. Bones and soft tissues are unr emarkable. Impression: Stable support tubes, as above. Minimal left pleural effusion with mild bibasilar pulmonary edema/atelectasis. Correlate clinically f or pneumonia. Reviewed, dictated and finalized at location . Impression: Stable support tubes, as above. Minimal left pleural effusion with mild bibasilar pulmonary edema/atelectasis. Correlate clinically for pneumonia.
--- NOTE | ~2022-09-12 | CT_ITS ---
EXAMINATION: CT brain wo con INDICATION: Altered mental status COMPARISON: 08/28/2022 TECHNIQUE: Standard unenhanced head CT. The dose-length product (DLP) was 605.33 mGy-cm. The mA was a djusted according to patient size. Iterative reconstruction technique was employed. FINDINGS: There is continued evolution of the previously described right middle cerebral artery distr ibution infarct. No new infarct is noted. There is no evidence of intracranial mass or acute hemorrha ge. The ventricles are normal. There is no abnormal mass effect or midline shift. The cabezas-white kem er differentiation is normal. The basal cisterns are patent. The orbits are normal. The paranasal sin uses, mastoids and calvarium are normal. IMPRESSION: 1. Evolving right middle cerebral artery distribution infarct. Reviewed, dictated and finalized at location A.
--- NOTE | 2022-09-12 09:49 | ECG_ITS ---
Measurements Intervals [place] Rate: 117 P: -19 TX: 115 QRS: 78 QRSD: 81 T: 57 QT: 356 QTc: 498 Interpretive Statements SINUS TACHYCARDIA WITH SHORT TX INTERVAL MODERATE ST DEPRESSION [0.05+ mV ST DEPRESSION] NO PREVIOUS ECG AVAILABLE FOR COMPARISON Electronically Signed On 09-12-2022 17:07:29 CDT by Sindy Rogers M.D.
[2022-09-12 10:23] LABS: Basophils Percent Auto 0.2 % (0.2-1.2); Hematocrit 58.7 % (37.0-47.0); Hemoglobin 17.9 g/dL (12.0-15.0); Immature Granulocyte Absolute 0.12 K/mm3 (0.00-0.031); Immature Granulocyte Percent A 0.8 % (0-0.5); Immature Platelet Fraction Pct 7.1 % (0.9-11.2); Lymphocytes Absolute Auto 2.75 K/mm3 (0.9-3.2); Lymphocytes Percent Auto 17.5 % (18.3-44.2); Mean Corpuscular HGB Conc 30.5 g/dl (32-36); Mean Corpuscular Hemoglobin 32.4 pg (26-34); Mean Corpuscular Volume 106.3 fl (80-100); Mean Platelet Volume 12.4 fl (7.4-10.4); Monocytes Absolute Auto 1.1 K/mm3 (0.1-0.6); Monocytes Percent Auto 6.8 % (2.6-8.5); Neutrophils Absolute Auto 11.8 K/mm3 (1.3-6.7); Neutrophils Percent Auto 74.7 % (45.5-73.1); Nucleated Red Blood Cells Perc 0.1 % (0.0-0.2); Platelet Count Result 251 k/mm3 (150-375); Red Blood Count 5.52 M/mm3 (4.2-5.4); Red Cell Distribution Width 14.6 % (11.5-14.5); White Blood Count 15.7 K/mm3 (4.5-10.0)
[2022-09-12 10:35] LABS: Alveolar/Arterial O2 Gradient 538.6 mmHg; Base Excess ABG -2.7 mEq/l (+/-2.0); Device VENTILATOR; Fractional Inspired Oxygen 100 %; HCO3 ABG 22.8 mEq/l (22.0-26.0); Modified Allen's Test Pass; Oxygen Content ABG 24.7 %vol (16.0-22.0); Oxygen Saturation ABG 98.5 % (95.0-100.0); Oxyhemoglobin 96.9 % THb (90.0-100.0); PCO2 ABG 42.2 mmHg (35.0-45.0); PO2 ABG 132.2 mmHg (80.0-100.0); PO2 FiO2 Ratio Arterial Blood 1.32 %; Site Drawn RIGHT RADIAL; pH ABG 7.351 (7.350-7.450)
[2022-09-12 10:36] LABS: Arterial Blood Gas PEEP 7 cmH2O; Arterial Blood Gas Tidal Volume 450 ml; Arterial Blood Gas Vent Mode CMV; Arterial Blood Gas Ventilator rate 20 /MIN
[2022-09-12 10:44] LABS: Alanine Aminotransferase 108 U/L (6-35); Albumin Level 4.8 g/dL (3.5-5.1); Alkaline Phosphatase 69 U/L (38-126); Anion Gap 16 mmol/L (8-16); Aspartate Amino Transferase 97 U/L (14-36); Bilirubin,Total 4.4 mg/dL (0.2-1.3); Blood Urea Nitrogen 109 mg/dL (7-17); Calcium 10.1 mg/dL (8.4-10.2); Carbon Dioxide 27 mmol/L (22-30); Chloride 122 mmol/L (98-107); Estimated Glomerular Filt Rate 18; Glucose 209 mg/dL (65-110); Potassium 5.9 mmol/L (3.4-5.0); Sodium 165 mmol/L (137-145)
[2022-09-12 10:53] LABS: Troponin I 0.065 ng/mL (0.000-0.034)
--- NOTE | 2022-09-12 10:57 | PC.NURSE ---
Pt arrived with IO in the R lower leg, NS running Pt was cool and clammy, pt was being bagged by EMS upon arrival No meds were given in route to ED 0939 20 in R AC 0941 BP 105/40 HR 126 0943 18 L AC initiated 0944 temp 99.0 F 0950 16F temp indwelling catheter inserted 0956 50mg of Etomidate given 0957 20mg of Rocuronium given 0959 inserted 7.5 tube 25cm at the lip 1005 epinephrine administered through L AC IV 1015 OG tube inserted 1025 soft restraints applied to bilateral wrists with good perfusion 1027 norepinephrine through L AC IV at 5mcg 1030 epinephrine administered through L AC IV 1035 Fentanyl through IO at 25 meq 1045 central line insert 1049 actual line in 1103 X-ray confirmation for central line placement
[2022-09-12] MEDS: NOREPINEPHRINE 8 MG/D5W 250 ML 8 MG/250 ML BAG 5 MG (11:01)
[2022-09-12] MEDS: FENTANYL 2,500MCG/NS250ML(*CRX 2,500 MCG/250 ML BAG IV CONT ×2 (11:02→13:30)
[2022-09-12] MEDS: PLEASE ENTER HEIGHT AND WEIGHT XX (11:05)
[2022-09-12] MEDS: LACTATED RINGERS 1,000 ML 999 ML IV CONT ×3 (11:07→16:07)
[2022-09-12 11:10] LABS: Lactic Acid Reflex 2.5 mmol/L (0.7-2.0)
[2022-09-12 11:12] LABS: Appearance Urine Cloudy (Clear); Bilirubin Urine 2+ (Negative); Blood Urine Negative (Negative); Color Urine Dark Yellow (Yellow); Glucose Urine UA Negative (Negative); Ketones Urine Negative (Negative); Leukocyte Esterase Ur Trace LEU/UL (Negative); Nitrate Urine Positive (Negative); Protein Urine 1+ mg/dL (Negative); Specific Grav Ur 1.028 (1.001-1.035)
[2022-09-12 11:29] LABS: Amphetamine Screen Urine Negative (Negative); Bacteria Urine None Seen /hpf; Barbiturate Screen Urine Negative (Negative); Benzodiazepines Screen Urine Negative (Negative); Budding Yeast Urine Present /hpf; Cannabinoid Screen Urine Negative (Negative); Cocaine Screen Urine Negative (Negative); Hyaline Casts Urine Present /lpf; Methadone Screen Urine Negative (Negative); Need Manual Microscopic Reviewed; Non Pathogenic Casts >20; Opiate Screen Urine Negative (Negative); Phencyclidine Screen Urine Negative (Negative); Squamous Epithelial Cell Urine Moderate /hpf (Few); WBC Urine 0-5 /hpf
[2022-09-12 11:30] LABS: Add Urine Microscopic? YES
--- NOTE | 2022-09-12 11:31 | PC.NURSE ---
Dr. Angeles spoke with for permission to insert central line.
[2022-09-12 11:37] LABS: Acetaminophen < 10 ug/mL (10-30); Ammonia 15 umol/L (9-30); Ethanol < 10 mg/dL (<10); Salicylate < 1.0 mg/dL (2-20)
--- NOTE | 2022-09-12 12:33 | ED.AMS ---
HPI - Altered Mental Status General Chief Complaint: Altered Mental Status Stated Complaint: unresponsive Time Seen by Provider: 09/12/22 09:43 History of Present Illness HPI narrative: Patient presents from retirement unresponsive, per EMS report, she was at the rehab after CVA and is generally not able to move around well not can she speak, apparently has not made very much purposeful movement for a while but earlier today nursing staff noticed she did not seem to be breathing well nor responding so called EMS Related Data Home Medications Medication Instructions Recorded Confirmed albuterol sulfate 90 mcg/actuation 2 puff inhalation QID PRN 08/25/22 08/25/22 aerosol inhaler (Ventolin HFA) Shortness Of Breath Or Wheezing apixaban 5 mg tablet (Eliquis) 5 mg PO BID 08/25/22 08/25/22 atorvastatin 40 mg tablet 40 mg PO HS 08/25/22 08/25/22 budesonide-formoterol HFA 80 2 puff inhalation BID 08/25/22 08/25/22 mcg-4.5 mcg/actuation aerosol inhaler celecoxib 100 mg capsule (Celebrex) 100 mg PO DAILY 08/25/22 08/25/22 enalapril maleate 5 mg tablet 5 mg PO DAILY 08/25/22 08/25/22 oxycodone 5 mg tablet 5 mg PO Q6H PRN Pain 08/25/22 08/25/22 paroxetine HCl 30 mg tablet 30 mg PO DAILY 08/25/22 08/25/22 trazodone 50 mg tablet 50 mg PO HS PRN Insomnia 08/25/22 08/25/22 Allergies Allergy/AdvReac Type Severity Reaction Status Date / Time meperidine Allergy Mild Hives Verified 09/12/22 10:26 Review of Systems Review of Systems: ROS unobtainable: Yes unobtainable due to medical condition and unobtainable due to mental status [facility] Past Medical History Medical History (Updated 09/12/22 @ 13:05 by Jayne Angeles MD) Acute CVA (cerebrovascular accident) Bronchitis Chronic pain Depression with anxiety Hyperlipidemia Surgical History Surgical History Surgical history unknown Family History Family History Unknown No problems noted. Social History Social History Social History: she lives in [place] and has a daughter chacha casanova. her is clarence kothari. she is listed as a full code Exam Narrative: EXAMINATION OF ORGAN SYSTEMS/BODY AREAS: Constitutional: Vital signs per nursing GENERAL: Poor respiratory effort HEAD: No signs of head trauma. EYES: Some crusting over right eye, otherwise PERRL ENT: Oral airway in place LUNGS: Poor respiratory effort being actively bagged. HEART: Tachycardic ABD: [Soft], [nontender to palpation] EXT: No purposeful movement of any extremity nor response SKIN: [No rashes or lesions.] NEURO: No purposeful movement of any extremity nor response Course Vital Signs Vital signs: Vital Signs Temperature 99 F 09/12/22 09:39 Pulse Rate 126 H 09/12/22 09:39 Respiratory Rate 30 H 09/12/22 09:39 Blood Pressure 105/40 L 09/12/22 09:39 Temperature 99 F 09/12/22 09:39 Pulse Rate 110 H 09/12/22 12:32 Respiratory Rate 36 H 09/12/22 11:02 Blood Pressure 97/47 L 09/12/22 11:01 Pulse Oximetry 93 09/12/22 12:32 Oxygen Delivery Mechanical Ventilation 09/12/22 12:32 Fraction of Inspired Oxygen 80 09/12/22 12:32 Procedures ABG Interpretation ABG Interpretation 1: ABG Results: Good O2 sat on ventilator, no acidosis, normal pCO2 Central Line Placement Right IJ: Central Line Date: 09/12/22 Discussed w/ the patient/family/POA,the placement of a central venous catheter, including its clinical necessity/indication & associated potential risks, benifits and alternatives.: Yes The patient/family/POA understand(s) and acknowledge(s) the need to proceed with central venous catheter insertion as an important element of the patient's clinical management.: Yes Time Out Performed: Yes Patient Placed on Monitor/Pulse Ox: Yes Max. Sterile Barrier Techni
--- NOTE | 2022-09-12 12:56 | PC.NURSE ---
pt had levo increased to 15 @ 1105per vorb from Dr Angeles as pt's BP was still not responding to interventions
--- NOTE | 2022-09-12 13:12 | ADMGEN ---
This patient, Rere Loza, was admitted to Intensive Care Unit-8. Patient/family oriented to hospital policies and general routines including ID bracelet, bed and alarms, visiting hours, pain management, procedures, bathroom and other care routines, personal items, smoking policy, room service/diet, and visiting hours. Information on how to activate the Rapid Response Team has been discussed. Patient/Family are encouraged to report perceived risks to care and to ask questions if they do not understand what they are told or what they should do.
[2022-09-12] MEDS: NOREPINEPHRINE 8 MG/D5W 250 ML 8 MG/250 ML BAG 28.13 MG IV CONT (13:30)
[2022-09-12] MEDS: ACETAMINOPHEN 325 MG TABLET 650 MG FEED TUBE (13:35)
[2022-09-12] MEDS: PERFLUTREN LIPID MICROSPHERES 1.5 ML VIAL DILUTED TO 10 ML TOTAL VOLUME IV PUSH (13:45)
[2022-09-12 13:53] LABS: Reflex Lactic Acid Yes or No Add Lactic
[2022-09-12] MEDS: VANCOMYCIN 1,250 MG/NS 250 ML 1,250 MG/250 ML BAG 166.67 MG IVPB ×2 (14:16→15:43)
[2022-09-12] MEDS: CENTRAL LINE FLUSH 10 ML IV PUSH ×3 (14:24→21:44)
--- NOTE | 2022-09-12 14:30 | WPDCNINT ---
Assessment and Plan Assessment and plan (1) Encephalopathy: Code(s): G93.40 - Encephalopathy, unspecified Status: Acute Assessment and Plan: Encephalopathy could be multifactorial -hypernatremia, hypotension, septic shock/infection, recent history of CVA -will continue to treat underlying issues -monitor closely -will use minimal sedation (2) Acute respiratory failure: Code(s): J96.00 - Acute respiratory failure, unspecified whether with hypoxia or hypercapnia Status: Acute Assessment and Plan: Acute respiratory failure likely related to encephalopathy, possible aspiration, airway protection -intubated on 09/12/2022 -continue CMV mode of ventilation, peep of 8, 80% FiO2 -ABGs reviewed, O2 to maintain O2 sats > 92% -will add bronchodilators -sedated with fentanyl infusion, (3) Septic shock: Code(s): A41.9 - Sepsis, unspecified organism; R65.21 - Severe sepsis with septic shock Status: Acute Assessment and Plan: Septic shock likely related to pneumonia, UTI -09/12: blood cultures have been obtained, -will obtain urine cultures -continue cefepime, vancomycin, will add Flagyl (09/12) -patient has received 2 L IV fluid bolus, will given initial 1 L IV fluid bolus with 30 mL/kilogram per sepsis protocol -continue Levophed to maintain mean arterial pressures > 65 mmHg for adequate end organ perfusion -will continue maintenance IV fluids -obtain echocardiogram (4) Acute renal failure: Code(s): N17.9 - Acute kidney failure, unspecified Status: Acute Assessment and Plan: Acute renal failure likely related to dehydration, hypotension, septic shock, ATN, infection, KALEIGH-inhibitor and Celebrex use at home Celebrex -check urine lytes, CK level, urine eosinophil -check renal ultrasound -patient received 2 L IV fluids, will give additional IV fluid bolus -recheck BMP -monitor electrolytes, renal function and urine output (5) Acute hypernatremia: Code(s): E87.0 - Hyperosmolality and hypernatremia Status: Acute Assessment and Plan: Acute hypernatremia likely related to decreased p.o. intake, dehydration, free water loss, insensible water loss -sodium 165 on admission -will give patient isotonic saline -repeat BMP every 6 hours -unknown if chronic or acute hypernatremia -will increase sodium by 10 mEq per 24 hours -nephrology has been consulted (6) Depression with anxiety: Code(s): F41.8 - Other specified anxiety disorders Status: Acute Assessment and Plan: Will hold paroxetine and trazodone (7) CVA (cerebral vascular accident): Code(s): I63.9 - Cerebral infarction, unspecified Status: Acute Assessment and Plan: Patient had a recent CVA in July of 2022, will continue Eliquis -will have Neurology evaluate the patient Plan DVT prophylaxis: Eliquis Stress ulcer prophylaxis: Protonix IV Nutrition: NPO for now Code Status: Full code Critical Care Time Spent: 53 minutes Due to a high probability of clinically significant, life threatening deterioration, the patient required my highest level of preparedness to intervene emergently and I personally spent this critical care time directly and personally managing the patient. This critical care time included obtaining a history; examining the patient; pulse oximetry; ordering and review of studies; arranging urgent treatment with development of a management plan; evaluation of patient's response to treatment; frequent reassessment; and discussions with other providers. It was exclusive of separately billable procedures and treating other patients and teaching time. Please see Assessment and Plan section and the rest of the note for further information on patient assessment and treatment This dictation may have been done utilizing a voice recognition system. Attempts have been made to correct errors. However, there may be uncorrected grammatical, spelling, and evelyne
[2022-09-12 15:10] LABS: Basophils Percent Auto 0.2 % (0.2-1.2); Hematocrit 49.6 % (37.0-47.0); Hemoglobin 15.1 g/dL (12.0-15.0); Immature Granulocyte Absolute 0.12 K/mm3 (0.00-0.031); Immature Granulocyte Percent A 0.7 % (0-0.5); Lymphocytes Absolute Auto 2.17 K/mm3 (0.9-3.2); Lymphocytes Percent Auto 12.9 % (18.3-44.2); Mean Corpuscular HGB Conc 30.4 g/dl (32-36); Mean Corpuscular Hemoglobin 32.2 pg (26-34); Mean Corpuscular Volume 105.8 fl (80-100); Mean Platelet Volume 12.2 fl (7.4-10.4); Monocytes Percent Auto 5.6 % (2.6-8.5); Neutrophils Absolute Auto 13.6 K/mm3 (1.3-6.7); Neutrophils Percent Auto 80.6 % (45.5-73.1); Nucleated Red Blood Cells Perc 0.1 % (0.0-0.2); Platelet Count Result 211 k/mm3 (150-375); Red Blood Count 4.69 M/mm3 (4.2-5.4); Red Cell Distribution Width 14.6 % (11.5-14.5); White Blood Count 16.8 K/mm3 (4.5-10.0)
[2022-09-12 15:24] LABS: Sodium Urine Random 21 meq/L
[2022-09-12] MEDS: metroNIDAZOLE 500 MG/ISO 100ML 500 MG/100 ML BAG 100 MG IVPB ×2 (15:24→21:45)
[2022-09-12 15:25] LABS: Macrocytosis 1+ (NORMAL); Platelet Estimate Adequate (Adequate); Schistocytes None Seen (NORMAL)
[2022-09-12 15:27] LABS: INR 1.6; Prothrombin Time 20.1 Seconds (11.1-14.7)
[2022-09-12 15:28] LABS: Partial Thromboplastin Time 41.3 SECONDS (22.3-36.8)
[2022-09-12 15:30] LABS: Lactic Acid 1.6 mmol/L (0.7-2.0)
[2022-09-12 15:31] LABS: Potassium Urine Random 112.1 meq/L
[2022-09-12 15:34] LABS: CRP 3.4 mg/dL (<1.0); Creatine Kinase 642 U/L (30-135); Magnesium 3.2 mg/dL (1.6-2.3); Phosphorus 5.9 mg/dL (2.5-4.5)
[2022-09-12] MEDS: PANTOPRAZOLE SODIUM IV 40 MG VIAL IV PUSH (15:37)
[2022-09-12] MEDS: CEFEPIME 2 GM/NS 50 ML 2 GM/50 ML BAG IVPB (15:43)
[2022-09-12 15:44] LABS: Creatinine Urine 221.2 mg/dL
--- NOTE | 2022-09-12 15:53 | PM.IMHP ---
H&P: HPI History of Present Illness Date/Time: 09/12/22 16:30 Chief Complaint: Unresponsive. Narrative: This is an unfortunate 52-year-old female with history of stroke which has left her essentially nonverbal with left-sided weakness, hypertension, dyslipidemia, chronic pain syndrome, depression, and anxiety who presented to the emergency department via EMS from [place] for evaluation after she was found unresponsive. The following history is obtained from the triage and ED physician notes as well as a review of her EMR. About 3 weeks ago she had a fall out of her bed and she was brought to the ER for evaluation where she was found to have a large acute infarction in the distribution of the right middle cerebral artery. She was not a candidate for tPA and she was not started on Plavix due to high risk for bleeding. Eliquis was initially held but was resumed prior to discharge. Today staff found her much less responsive than normal and she was sent in for evaluation. On arrival to the ED she was cool, clammy, and being bagged per EMS. Vital signs on arrival: Blood pressure 105/40, pulse 126, respiratory rate 30, temperature 99? but did jumped to 101.7? this afternoon. Pertinent labs include a WBC count of 15.7, hemoglobin 17.9, hematocrit 58.7%, sodium 165, potassium 5.9, BUN 109, creatinine 2.70, lactic acid 2.5, to room 4.4, AST 97, ALT 108, alkaline phosphatase 69, troponin 0.065, total CK 642. Urine was nitrate positive with trace leukocyte esterase and 0 to 5 WBC; no bacteria were seen on microscopy however hyaline casts, budding yeast, and moderate squamous cells were noted. Brain CT showed evolving right middle cerebral artery distribution infarction. Chest x-ray showed right basilar airspace opacity, atelectasis versus pneumonia, and possible small pleural effusions. She was intubated on arrival for airway protection. She has been started on fentanyl and Versed for sedation. Central line was inserted and she is currently on norepinephrine due to persistent hypotension. She has been started on broad-spectrum antibiotics to include cefepime, metronidazole, and vancomycin. Review of Systems Review of Systems: Unable to obtain as she is sedated on mechanical ventilation. [facility] Past Medical History Medical History Bronchitis Cerebrovascular accident (08/25/22) Large infarct in the right middle cerebral artery distribution. Chronic pain Depression with anxiety Hyperlipidemia Obstructive sleep apnea Surgical History Surgical History Surgical history unknown Family History Family History Unknown No problems noted. Other Unknown family medical history Social History Social History Social History: Surrogate medical decision maker: Elmer Gonzalez (spouse) or Anastasiya Denia (daughter). Code status: Full code. Smoking status: Unknown if ever smoked Alcohol intake: never Substance use: never Lack of Transportation: No Lack of Food: Never True Current Housing: Decline to Answer Concerned About Future Housing: Decline to Answer Difficulty Paying Gas/Electric Bills: Decline to Answer Difficulty Paying for Meds: Decline to Answer Currently Unemployed: Decline to Answer Education: Decline to Answer Difficulty w/ Childcare or Family Care: Decline to Answer Additional living arrangements comments: Resident of [place]. She has 1 daughter. Spiritual care concerns: No Meds Home Medications and Allergies Home Medications Medication Instructions Recorded Confirmed Type albuterol sulfate 90 mcg/actuation 2 puff inhalation QID PRN 08/25/22 09/12/22 History aerosol inhaler (Ventolin HFA) Shortness Of Breath Or Wheezing apixaban 5 mg tablet (Eliquis) 5 mg PO Q12H 08/25
--- NOTE | 2022-09-12 15:59 | WPDNEURCNPN ---
Consult date: 09/12/22 HPI: Rere Casanova is a 52 year old female [facility] Past Medical History Medical History (Updated 09/12/22 @ 14:40 by Curly Hansen MD) Acute CVA (cerebrovascular accident) Bronchitis Chronic pain Depression with anxiety Hyperlipidemia Surgical History Surgical History Surgical history unknown Family History Family History (Updated 09/12/22 @ 13:24 by Deepa Whalen RN) Unknown No problems noted. Other Unknown family medical history Social History Social History Social History: she lives in [place] and has a daughter chacha casanova. her is clarence kothari. she is listed as a full code Smoking status: Unknown if ever smoked Alcohol intake: never Substance use: never Lack of Transportation: No Lack of Food: Never True Current Housing: Decline to Answer Concerned About Future Housing: Decline to Answer Difficulty Paying Gas/Electric Bills: Decline to Answer Difficulty Paying for Meds: Decline to Answer Currently Unemployed: Decline to Answer Education: Decline to Answer Difficulty w/ Childcare or Family Care: Decline to Answer Spiritual care concerns: No Meds Home Medications and Allergies Home Medications Medication Instructions Recorded Confirmed Type albuterol sulfate 90 mcg/actuation 2 puff inhalation QID PRN 08/25/22 09/12/22 History aerosol inhaler (Ventolin HFA) Shortness Of Breath Or Wheezing apixaban 5 mg tablet (Eliquis) 5 mg PO Q12H 08/25/22 09/12/22 History atorvastatin 40 mg tablet 40 mg PO HS 08/25/22 09/12/22 History budesonide-formoterol HFA 80 2 puff inhalation Q12H 08/25/22 09/12/22 History mcg-4.5 mcg/actuation aerosol inhaler celecoxib 100 mg capsule (Celebrex) 100 mg PO DAILY 08/25/22 09/12/22 History enalapril maleate 5 mg tablet 5 mg PO DAILY 08/25/22 09/12/22 History oxycodone 5 mg tablet 5 mg PO Q6H Pain 08/25/22 09/12/22 History paroxetine HCl 30 mg tablet 30 mg PO DAILY 08/25/22 09/12/22 History trazodone 50 mg tablet 50 mg PO HS PRN Insomnia 08/25/22 09/12/22 History furosemide 20 mg tablet 20 mg PO DAILY 09/12/22 09/12/22 History mirtazapine 15 mg PO DAILY 09/12/22 09/12/22 History Allergies Allergy/AdvReac Type Severity Reaction Status Date / Time meperidine Allergy Mild Hives Verified 09/12/22 10:26 Vital Signs Vital Signs - 24 hr 09/12/22 10:04 09/12/22 10:36 09/12/22 10:41 Temperature Pulse Rate 126 H 113 H 119 H Respiratory Rate 22 H 19 Blood Pressure 114/67 80/71 L Pulse Oximetry Oxygen Delivery Mechanical Ventilation Fraction of Inspired Oxygen 100 09/12/22 11:01 09/12/22 11:02 09/12/22 09:39 Temperature 37.2 C Pulse Rate 124 H 123 H 126 H Respiratory Rate 36 H 30 H Blood Pressure 97/47 L 105/40 L Pulse Oximetry Oxygen Delivery Fraction of Inspired Oxygen 09/12/22 12:55 09/12/22 11:55 09/12/22 12:32 Temperature Pulse Rate 107 H 107 H 110 H Respiratory Rate Blood Pressure 100/58 L Pulse Oximetry 98 98 93 Oxygen Delivery Mechanical Ventilation Mechanical Ventilation Fraction of Inspired Oxygen 100 80 09/12/22 10:42 09/12/22 10:45 09/12/22 10:46 Temperature Pulse Rate 119 H 118 H 119 H Respiratory Rate 28 H 22 H 25 H Blood Pressure 74/54 L Pulse Oximetry 96 Oxygen Delivery Fraction of Inspired Oxygen 09/12/22 10:51 09/12/22 10:56 09/12/22 11:00 Temperature Pulse Rate 117 H 118 H 123 H Respiratory Rate 29 H 27 H 38 H Blood Pressure 90/64 L 81/29 L Pulse Oximetry 95 96 92 Oxygen Delivery Fraction of Inspired Oxygen 09/12/22 11:01 09/12/22 11:06 09/12/22 11:11 Temperature Pulse Rate 123 H 119 H 118 H Respiratory Rate 39 H 33 H 30 H Blood Pressure 91/47 L 93/67 L 98/48 L Pulse Oximetry 92 92 96 Oxygen Delivery Fraction of Inspired Oxygen 09/12/22 11:15 06
--- NOTE | 2022-09-12 16:02 | WPDNEURCNPN ---
Assessment and Plan Assessment and plan (1) Acute renal failure: Code(s): N17.9 - Acute kidney failure, unspecified Status: Acute (2) Septic shock: Code(s): A41.9 - Sepsis, unspecified organism; R65.21 - Severe sepsis with septic shock Status: Acute (3) Acute respiratory failure: Code(s): J96.00 - Acute respiratory failure, unspecified whether with hypoxia or hypercapnia Status: Acute (4) Altered mental status: Code(s): R41.82 - Altered mental status, unspecified Status: Acute (5) Acute hypernatremia: Code(s): E87.0 - Hyperosmolality and hypernatremia Status: Acute Plan 1 vascular accident for which patient is on anticoagulation therapy 2 hypernatremia 3 septic shock plan as being done CT scan has already been done we will continue the supportive care repeat the CT scan 3 to 5 days later and also obtain EEG at that time and discussed with the family thank you Consult date: 09/12/22 HPI: Rere Casanova is a 52 year old female Admitted to the hospital through the emergency room for complaints of change in the mental status she was brought to the ER by the EMS from from rehab where she was hospitalized after CVA as per the information available she was generally unable to move unable to speak but this morning the nursing service noted that she did not seem to be breathing well nausea responding to the stimuli. Her medications included apixaban 5 mg b.i.d., atorvastatin 40 mg at night, and enalapril 5 mg daily, oxycodone 5 mg q.6 hours p.r.n., paroxetine 30 mg daily, and trazodone 50 mg at night p.r.n. She is reportedly allergic to meperidine. She does have ongoing history of chronic pain with anxiety and depression, is the full code status, an initial exam in the Emergency Room documented poor respiratory effort pupils equal reacting to light poor respiratory effort no purposeful movements of the upper or lower extremities pain vital signs with pulse of 126 blood pressure 105/40. Initial CT scan did not reveal any bleed , overall the lab was consistent with hypernatremia with sodium 165 potassium 5.9 creatinine 2.7 elected 2.5 with wide elevated white blood cells and hemoglobin of 17.9. She was admitted to ICU with the diagnosis of encephalopathy of multifactorial nature that is hyponatremia hypotension and septic shock in addition to the history of CVA minimal sedation was used and patient was kept intubated, cultures were obtained so as the x-ray chest neuro consultation has been obtained for all these problems. The CT scan revealed evolving right middle cerebral artery DIS tibial vidal infarct x-ray chest with right central line tip in the right atrium abdomen x-ray with NG tube into the stomach. [facility] Past Medical History Medical History (Updated 09/12/22 @ 14:40 by Curly Hansen MD) Acute CVA (cerebrovascular accident) Bronchitis Chronic pain Depression with anxiety Hyperlipidemia Surgical History Surgical History Surgical history unknown Family History Family History (Updated 09/12/22 @ 13:24 by Deepa Whalen RN) Unknown No problems noted. Other Unknown family medical history Social History Social History Social History: she lives in [place] and has a daughter chacha casanova. her is clarence kothari. she is listed as a full code Smoking status: Unknown if ever smoked Alcohol intake: never Substance use: never Lack of Transportation: No Lack of Food: Never True Current Housing: Decline to Answer Concerned About Future Housing: Decline to Answer Difficulty Paying Gas/Electric Bills: Decline to Answer Difficulty Paying for Meds: Decline to Answer Currently Unemployed: Decline to Answer Education: Decline to Answer Difficulty w/ Childcare or Family Care: Decline to Answer Spiritual care concerns: No
[2022-09-12 16:46] LABS: Eosinophil Urine None Seen % (None Seen); Urine Eos QC 2nd Tech Confirmed
--- NOTE | 2022-09-12 17:09 | PM.CNNEP ---
Assessment and Plan Assessment and plan (1) Acute renal failure: Code(s): N17.9 - Acute kidney failure, unspecified Status: Acute Assessment and Plan: the patient has acute kidney injury. Her baseline creatinine is 0.8. Urine electrolytes look pre renal. Urinalysis shows protein +nitrates but only 0-5 white cells. Renal ultrasound shows no hydro and normal size kidneys. CK is mildly high but not high enough to cause kidney problems. On exam she looks dehydrated. most likely this is GIOVANNA from dehydration. She is getting IV fluids. She has hypotension as well. Her systolic was only 50 when she got to the ER. She is on pressors for this. These will be weaned once her volume status improves with the fluids. As a consequence of the renal failure the patient also has hyperkalemia. This should improve with improvement in renal function. Her bicarbonate level is normal , but her baseline bicarbonate is 34 and her anion gap is high so she probably has some metabolic acidosis on top of her chronic metabolic alkalosis. The high anion gap is probably mostly from uremic toxins. Her lactic acid level was high early on but on repeat is down to normal. Her sodium is high. See below. Will continue IV fluids As guided by her electrolytes. (2) Hypernatremia: Code(s): E87.0 - Hyperosmolality and hypernatremia Status: Acute Assessment and Plan: The patient has hypernatremia. This is probably from free water deficit. She is dehydrated. She got 2L of fluid in the ER and also another L in the ICU. Her last bolus will finished about a 1/2hour ago when she is not on any a maintenance fluids. She will probably need this but it is unclear exactly what to give her right now so will get a stat BMP the nurse will call it to me and will decide what to do then. Treating the blood pressure is the most important thing. Giving IV fluids alone will improve renal perfusion and renal function and so the kidneys should be able to balance this sodium. Sometimes however early on giving isotonic fluid can make the sodium worse. If so will need to give some D5W. (3) CVA (cerebral vascular accident): Code(s): I63.9 - Cerebral infarction, unspecified Status: Acute (4) Obstructive sleep apnea: Code(s): G47.33 - Obstructive sleep apnea (adult) (pediatric) Status: Acute (5) Hyperlipidemia: Code(s): E78.5 - Hyperlipidemia, unspecified Status: Acute (6) Hypotension: Code(s): I95.9 - Hypotension, unspecified Status: Acute Assessment and Plan: patient's blood pressure is low. This is requiring pressors. She is also getting IV fluids. She is on antibiotics in case there is an infection issue. History of Present Illness Reason for Consult Consult date: 09/12/22 Chief Complaint Chief complaint: Septic Shock, Hypoxia, Elev Trop, Hypernatremia History of Present Illness Narrative: Rere is an unfortunate 52-year-old lady who has multiple medical problems including stroke with a large infarct in the right middle cerebral artery distribution, chronic pain, depression, hyperlipidemia, sleep apnea, bronchitis. She was recently in [facility] for her stroke. She ended up with left-sided weakness. She went to [facility] for [facility]hab. The staff at the [facility] checked in home checked in on her and found her to be less responsive. They called an ambulance and sent her over to the ER. In the ER her blood pressure was very low. She looked dehydrated. They check some labs and found an elevated BUN, creatinine, potassium, and sodium. Her CK was elevated as well. Chest x-ray showed right basilar airspace base opacity. She was given IV fluids. Pressors. Antibiotics per she was moved to the ICU. Review of Systems Review of Systems: ROS unobtainable: Yes unobtainable due to medical condition [facility] Past Med
--- NOTE | 2022-09-12 17:17 | PC.NURSE ---
Attempted to update patient's spouse on plan of care and patient condition. Spouse upset that Wally did not perform an MRI on patient's prior visit after her fall at [place]. States she was like that when she left you guys and went back to [place] on the . RN unable to discuss other alternatives to patient's condition.
[2022-09-12 17:23] LABS: Iron 31 ug/dL (37-170)
[2022-09-12 17:33] LABS: Percent Iron Saturation 16 % (20-50)
[2022-09-12 18:10] LABS: Anion Gap 7 mmol/L (8-16); Blood Urea Nitrogen 108 mg/dL (7-17); Calcium 8.3 mg/dL (8.4-10.2); Carbon Dioxide 28 mmol/L (22-30); Chloride 124 mmol/L (98-107); Estimated CRCL calculation 27 ml/min; Estimated Glomerular Filt Rate 17; Glucose 187 mg/dL (65-110); Potassium 3.7 mmol/L (3.4-5.0); Sodium 159 mmol/L (137-145)
--- NOTE | 2022-09-12 18:10 | PC.NURSE ---
Dr. Peters updated on BMP. IVF initiated
[2022-09-12] MEDS: SODIUM CHLORIDE 0.9% IV 1,000 ML 100 ML IV CONT (18:33)
[2022-09-12 18:56] LABS: Folic Acid > 20.0 ng/mL (2.76->20)
[2022-09-12] MEDS: LEVALBUTEROL NEB 1.25 MG/3 ML 0.63 MG INHALATION (20:20)
[2022-09-12] MEDS: IPRATROPIUM BR 0.02% INH SOLN 0.5 MG/2.5 ML VIAL INHALATION (20:20)
[2022-09-12] MEDS: NOREPINEPHRINE 8 MG/D5W 250 ML 8 MG/250 ML BAG 22.5 MG IV CONT (20:59)
[2022-09-12 21:12] LABS: Anion Gap 7 mmol/L (8-16); Blood Urea Nitrogen 109 mg/dL (7-17); Calcium 8.3 mg/dL (8.4-10.2); Carbon Dioxide 28 mmol/L (22-30); Chloride 122 mmol/L (98-107); Creatine Kinase 627 U/L (30-135); Estimated CRCL calculation 27 ml/min; Estimated Glomerular Filt Rate 17; Glucose 188 mg/dL (65-110); Potassium 3.8 mmol/L (3.4-5.0); Sodium 157 mmol/L (137-145)
[2022-09-12] MEDS: MINERAL OIL/WHITE PETROLATUM OINTMENT 1 APPLIC EACH EYE (21:44)
[2022-09-12] MEDS: APIXABAN 5 MG TABLET PO (21:44)
[2022-09-13] VITALS (8 sets, daily range): BP systolic 121–144; BP diastolic 58–82; PULSE 81–101; RESP 20–23; TEMP 37–37.2; O2SAT 98–100; BMI 42.3
[2022-09-13 12:37] LABS: Glucose Point of Care 115 mg/dl (65-105)
[2022-09-13 12:38] LABS: Glucose Point of Care 132 mg/dl (65-105)
--- NOTE | 2022-09-13 12:38 | PN_ITS ---
SUBJECTIVE The patient is in the ICU still. ?Her blood pressure is better and she is off pressors now. ?She is starting to make a little more urine. ?Her sedatives were discontinued for a while, but then she became anxious and so they restarted them recently. ?The patient cannot give a history. ?She is on the ventilator and sedated. PHYSICAL EXAMINATION VITAL SIGNS: ?Blood pressure is 130/77, respiratory rate 20, pulse 78, temperature is 98.6. SKIN: ?Warm and dry. ?No rash. ?No subcu nodules. HEAD: ?Normocephalic, atraumatic. LUNGS: ?Symmetric and coarse. HEART: ?Regular rate and rhythm. ?No rub or gallop. ABDOMEN: ?Bowel sounds are positive. ?Hypoactive, nontender. EXTREMITIES: ?Show no cyanosis, clubbing, or edema. LABORATORY DATA Last night, sodium 157, potassium 3.8, CO2 28, BUN 109, creatinine 2.9, glucose 188. ?Today, sodium was 161. ASSESSMENT AND PLAN The patient has hyponatremia. ?The sodium level had been coming down with isotonic fluids all day yesterday. ?Last night, it was down to 157. ?She received normal saline 100 mL an hour overnight, but then this morning, her sodium went up to 161. ?She is between bags of fluid now, so I will go ahead and order some D5W to bring the sodium back down. ?Since her blood pressure is better, we do not have the urgency to give saline like we did yesterday. ?We will give her the D5W and then repeat labs at 6:00 p.m. and I will call with the results.? The patient has acute kidney injury. ?BUN 109, creatinine 2.9. ?This should improve with improvement and dehydration. ?We will check another set of labs tomorrow.? Respiratory failure. ?She is on the ventilator, working on improving her volume status and electrolytes before weaning.? Infection. ?She is on antibiotics.? MTDD
--- NOTE | 2022-09-13 16:16 | PC.NURSE ---
Paper documentation exists on this patient due to [facility] downtime on 09/13/22 from 00:30 to 1630.
[2022-09-13 16:19] LABS: Glucose Point of Care 171 mg/dl (65-105)
[2022-09-13 19:08] LABS: Anion Gap 7 mmol/L (8-16); Blood Urea Nitrogen 76 mg/dL (7-17); Calcium 8.4 mg/dL (8.4-10.2); Carbon Dioxide 27 mmol/L (22-30); Chloride 124 mmol/L (98-107); Estimated CRCL calculation 51 ml/min; Estimated Glomerular Filt Rate 36; Glucose 165 mg/dL (65-110); Potassium 3.1 mmol/L (3.4-5.0); Sodium 158 mmol/L (137-145)
[2022-09-13] MEDS: IPRATROPIUM BR 0.02% INH SOLN 0.5 MG/2.5 ML VIAL INHALATION (20:01)
[2022-09-13] MEDS: LEVALBUTEROL NEB 1.25 MG/3 ML 0.63 MG INHALATION (20:01)
[2022-09-13] MEDS: DEXTROSE 5% 1,000 ML 1,000 ML 100 ML IV CONT (21:51)
[2022-09-13] MEDS: KCL 40 MEQ/WATER 100 ML 100 ML 25 ML IVPB (21:57)
[2022-09-13] MEDS: APIXABAN 5 MG TABLET PO (21:58)
[2022-09-13] MEDS: metroNIDAZOLE 500 MG/ISO 100ML 500 MG/100 ML BAG 100 MG IVPB (22:03)
[2022-09-13] MEDS: CENTRAL LINE FLUSH 10 ML IV PUSH (22:05)
[2022-09-13] MEDS: CEFEPIME 1 GM/NS 50 ML 1 GM/50 ML BAG IVPB (22:06)
[2022-09-13] MEDS: MINERAL OIL/WHITE PETROLATUM OINTMENT 1 APPLIC EACH EYE (22:07)
[2022-09-14] VITALS (28 sets, daily range): BP systolic 135–169; BP diastolic 65–94; PULSE 76–102; RESP 18–25; TEMP 37–37.6; O2SAT 100
[2022-09-14 01:09] LABS: Anion Gap 6 mmol/L (8-16); Blood Urea Nitrogen 62 mg/dL (7-17); Calcium 8.1 mg/dL (8.4-10.2); Carbon Dioxide 27 mmol/L (22-30); Chloride 121 mmol/L (98-107); Estimated CRCL calculation 58 ml/min; Estimated Glomerular Filt Rate 43; Glucose 236 mg/dL (65-110); Potassium 3.4 mmol/L (3.4-5.0); Sodium 154 mmol/L (137-145)
[2022-09-14] MEDS: IPRATROPIUM BR 0.02% INH SOLN 0.5 MG/2.5 ML VIAL INHALATION ×4 (02:26→20:03)
[2022-09-14] MEDS: LEVALBUTEROL NEB 1.25 MG/3 ML 0.63 MG INHALATION ×4 (02:26→20:02)
[2022-09-14] MEDS: INSULIN ASPART (*BKC) 100 UNITS/ML SUB-Q (02:39)
[2022-09-14 03:16] LABS: Glucose Point of Care 223 mg/dl (65-105)
[2022-09-14 04:58] LABS: Basophils Percent Auto 0.1 % (0.2-1.2); Hematocrit 39.4 % (37.0-47.0); Hemoglobin 11.9 g/dL (12.0-15.0); Immature Granulocyte Absolute 0.09 K/mm3 (0.00-0.031); Immature Granulocyte Percent A 0.7 % (0-0.5); Lymphocytes Absolute Auto 1.07 K/mm3 (0.9-3.2); Lymphocytes Percent Auto 7.8 % (18.3-44.2); Mean Corpuscular HGB Conc 30.2 g/dl (32-36); Mean Corpuscular Hemoglobin 31.9 pg (26-34); Mean Corpuscular Volume 105.6 fl (80-100); Mean Platelet Volume 12.9 fl (7.4-10.4); Monocytes Absolute Auto 0.5 K/mm3 (0.1-0.6); Monocytes Percent Auto 3.9 % (2.6-8.5); Neutrophils Absolute Auto 12.1 K/mm3 (1.3-6.7); Neutrophils Percent Auto 87.5 % (45.5-73.1); Platelet Count Result 127 k/mm3 (150-375); Red Blood Count 3.73 M/mm3 (4.2-5.4); Red Cell Distribution Width 14.6 % (11.5-14.5); White Blood Count 13.8 K/mm3 (4.5-10.0)
[2022-09-14] MEDS: DEXTROSE 5% 1,000 ML 1,000 ML 100 ML IV CONT ×2 (05:12→19:01)
[2022-09-14] MEDS: metroNIDAZOLE 500 MG/ISO 100ML 500 MG/100 ML BAG 100 MG IVPB ×3 (05:14→21:25)
[2022-09-14] MEDS: CENTRAL LINE FLUSH 10 ML IV PUSH ×3 (05:16→21:25)
[2022-09-14 05:28] LABS: Alanine Aminotransferase 78 U/L (6-35); Albumin Level 3.2 g/dL (3.5-5.1); Alkaline Phosphatase 71 U/L (38-126); Anion Gap 8 mmol/L (8-16); Aspartate Amino Transferase 75 U/L (14-36); Bilirubin,Total 1.7 mg/dL (0.2-1.3); Blood Urea Nitrogen 56 mg/dL (7-17); Calcium 8.3 mg/dL (8.4-10.2); Carbon Dioxide 26 mmol/L (22-30); Chloride 121 mmol/L (98-107); Estimated CRCL calculation 68 ml/min; Estimated Glomerular Filt Rate 52; Glucose 191 mg/dL (65-110); Lactic Acid Reflex 1.6 mmol/L (0.7-2.0); Magnesium 2.9 mg/dL (1.6-2.3); Potassium 3.2 mmol/L (3.4-5.0); Sodium 155 mmol/L (137-145)
[2022-09-14 05:36] LABS: Alveolar/Arterial O2 Gradient 91.4 mmHg; Fractional Inspired Oxygen 30 %; HCO3 ABG 21.2 mEq/l (22.0-26.0); Oxygen Content ABG 19.4 %vol (16.0-22.0); Oxyhemoglobin 94.5 % THb (90.0-100.0); PCO2 ABG 35.2 mmHg (35.0-45.0); PO2 ABG 81.1 mmHg (80.0-100.0); Total Hemoglobin 14.6 g/dL (12.0-18.0); pH ABG 7.397 (7.350-7.450)
[2022-09-14 05:37] LABS: Arterial Blood Gas PEEP 8 cmH2O; Arterial Blood Gas Tidal Volume 450 ml; Arterial Blood Gas Vent Mode CMV; Arterial Blood Gas Ventilator rate 20 /MIN; Device VENTILATOR; Modified Allen's Test Pass; Site Drawn RIGHT RADIAL
[2022-09-14 05:41] LABS: Anion Gap 7 mmol/L (8-16); Blood Urea Nitrogen 56 mg/dL (7-17); Calcium 8.4 mg/dL (8.4-10.2); Carbon Dioxide 26 mmol/L (22-30); Chloride 122 mmol/L (98-107); Estimated CRCL calculation 69 ml/min; Estimated Glomerular Filt Rate 52; Glucose 192 mg/dL (65-110); Potassium 3.2 mmol/L (3.4-5.0); Sodium 155 mmol/L (137-145)
[2022-09-14 07:40] LABS: Glucose Point of Care 175 mg/dl (65-105)
[2022-09-14] MEDS: POTASSIUM/PHOSPHORUS/SODIUM 1.5 GM PACKET 1 PACKET PO (08:24)
[2022-09-14] MEDS: KCL 40 MEQ/WATER 100 ML 100 ML 25 ML IVPB (08:24)
[2022-09-14] MEDS: APIXABAN 5 MG TABLET PO ×2 (08:24→20:03)
[2022-09-14] MEDS: CEFEPIME 1 GM/NS 50 ML 1 GM/50 ML BAG IVPB ×2 (08:25→10:59)
[2022-09-14] MEDS: PARoxetine 10 MG TABLET 30 MG PO (08:26)
[2022-09-14] MEDS: MINERAL OIL/WHITE PETROLATUM OINTMENT 1 APPLIC EACH EYE ×2 (08:27→20:08)
[2022-09-14] MEDS: PANTOPRAZOLE SODIUM IV 40 MG VIAL IV PUSH (08:27)
[2022-09-14 08:33] LABS: Glucose Point of Care 192 mg/dl (65-105)
[2022-09-14 08:41] LABS: Basophils Percent Auto 0.1 % (0.2-1.2); Hematocrit 44.1 % (37.0-47.0); Hemoglobin 13.3 g/dL (12.0-15.0); Immature Granulocyte Absolute 0.09 K/mm3 (0.00-0.031); Immature Granulocyte Percent A 0.6 % (0-0.5); Lymphocytes Absolute Auto 1.33 K/mm3 (0.9-3.2); Lymphocytes Percent Auto 8.7 % (18.3-44.2); Mean Corpuscular HGB Conc 30.2 g/dl (32-36); Mean Platelet Volume 12.2 fl (7.4-10.4); Monocytes Absolute Auto 0.6 K/mm3 (0.1-0.6); Monocytes Percent Auto 4.1 % (2.6-8.5); Neutrophils Absolute Auto 13.2 K/mm3 (1.3-6.7); Neutrophils Percent Auto 86.5 % (45.5-73.1); Platelet Count Result 140 k/mm3 (150-375); Red Blood Count 4.16 M/mm3 (4.2-5.4); Red Cell Distribution Width 14.4 % (11.5-14.5); White Blood Count 15.2 K/mm3 (4.5-10.0)
--- NOTE | 2022-09-14 08:44 | WPDINTPN ---
Progress Note: A&P Assessment and Plan (1) Encephalopathy: Code(s): G93.40 - Encephalopathy, unspecified Status: Acute Assessment and Plan: Encephalopathy could be multifactorial -hypernatremia, hypotension, septic shock/infection, recent history of CVA -will continue to treat underlying issues -monitor closely -will use minimal sedation (2) Acute respiratory failure: Qualifiers: Respiratory failure complication: unspecified whether with hypoxia or hypercapnia Qualified Code(s): J96.00 - Acute respiratory failure, unspecified whether with hypoxia or hypercapnia Code(s): J96.00 - Acute respiratory failure, unspecified whether with hypoxia or hypercapnia Status: Acute Assessment and Plan: Acute respiratory failure likely related to encephalopathy, possible aspiration, airway protection -intubated on 09/12/2022 -continue CMV mode of ventilation, peep of 8, 30% FiO2 -ABGs reviewed, O2 to maintain O2 sats > 92% -chest x-ray this morning: Stable right basilar airspace opacity, consistent with atelectasis versus pneumonia. Probable small pleural effusions -continue bronchodilators -sedated with fentanyl infusion, (3) Septic shock: Code(s): A41.9 - Sepsis, unspecified organism; R65.21 - Severe sepsis with septic shock Status: Acute Assessment and Plan: Septic shock likely related to pneumonia, UTI -patient was adequately resuscitated in the ER and ICU. 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 -continue cefepime, vancomycin, Flagyl (09/12) -will discontinue vancomycin -09/12/2022: Echocardiogram showed EF of 60-65%, LV chamber dimension is normal, grade 1 diastolic dysfunction, RV systolic function is reduced, trace mitral and trace tricuspid valve regurgitation. Small anterior pericardial effusion (4) Acute renal failure: Qualifiers: Acute renal failure type: unspecified Qualified Code(s): N17.9 - Acute kidney failure, unspecified Code(s): N17.9 - Acute kidney failure, unspecified Status: Acute Assessment and Plan: Acute renal failure likely related to dehydration, hypotension, septic shock, ATN, infection, KALEIGH-inhibitor and Celebrex use at home Celebrex -urine lytes with prerenal -CK levels were mildly elevated -09/12 renal ultrasound: Bladder decompressed by a Brandon catheter and therefore not well evaluated. Otherwise, unremarkable renal sonogram findings. No evidence of hydronephrosis. -patient received adequate amount of IV fluid -urine output is improving, creatinine is down to 1.10 (2.90 on admission -monitor electrolytes, renal function and urine output (5) Acute hypernatremia: Code(s): E87.0 - Hyperosmolality and hypernatremia Status: Acute Assessment and Plan: Acute hypernatremia likely related to decreased p.o. intake, dehydration, free water loss, insensible water loss -sodium 165 on admission 09/12 -patient received adequate IV fluids -initially was on normal saline maintenance fluids which was switched to D5W per nephrology to treat her hyponatremia -unknown if chronic or acute hypernatremia -appreciate Nephrology evaluation and recommendations (6) Depression with anxiety: Code(s): F41.8 - Other specified anxiety disorders Status: Acute Assessment and Plan: Will hold paroxetine and trazodone (7) CVA (cerebral vascular accident): Code(s): I63.9 - Cerebral infarction, unspecified Status: Acute Assessment and Plan: Patient had a recent CVA in July of 2022, will continue Eliquis -appreciate Neurology evaluation recommendations -patient may require EEG, will discuss with Neurology Plan DVT prophylaxis: Eliquis Stress ulcer prophylaxis: Protonix IV Nutrition: Continue tube feeds, tolerating Code Status: Ful
--- NOTE | 2022-09-14 10:36 | P.PNIM_ITS ---
Progress Note: A&P Assessment and Plan (1) Encephalopathy: Code(s): G93.40 - Encephalopathy, unspecified Status: Acute Assessment and Plan: Encephalopathy could be multifactorial -hypernatremia, hypotension, septic shock/infection, recent history of CVA -will continue to treat underlying issues -monitor closely -will use minimal sedation (2) Acute respiratory failure: Qualifiers: Respiratory failure complication: unspecified whether with hypoxia or hypercapnia Qualified Code(s): J96.00 - Acute respiratory failure, unspecified whether with hypoxia or hypercapnia Code(s): J96.00 - Acute respiratory failure, unspecified whether with hypoxia or hypercapnia Status: Acute Assessment and Plan: Acute respiratory failure likely related to encephalopathy, possible aspiration, airway protection -intubated on 09/12/2022 -continue CMV mode of ventilation, peep of 8, 30% FiO2 -ABGs reviewed, O2 to maintain O2 sats > 92% -chest x-ray this morning: Stable right basilar airspace opacity, consistent with atelectasis versus pneumonia. Probable small pleural effusions -continue bronchodilators -sedated with fentanyl infusion, (3) Septic shock: Code(s): A41.9 - Sepsis, unspecified organism; R65.21 - Severe sepsis with septic shock Status: Acute Assessment and Plan: Septic shock likely related to pneumonia, UTI -patient was adequately resuscitated in the ER and ICU. 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 -continue cefepime, vancomycin, Flagyl (09/12) -will discontinue vancomycin -09/12/2022: Echocardiogram showed EF of 60-65%, LV chamber dimension is normal, grade 1 diastolic dysfunction, RV systolic function is reduced, trace mitral and trace tricuspid valve regurgitation. Small anterior pericardial effusion (4) Acute renal failure: Qualifiers: Acute renal failure type: unspecified Qualified Code(s): N17.9 - Acute kidney failure, unspecified Code(s): N17.9 - Acute kidney failure, unspecified Status: Acute Assessment and Plan: Acute renal failure likely related to dehydration, hypotension, septic shock, ATN, infection, KALEIGH-inhibitor and Celebrex use at home Celebrex -urine lytes with prerenal -CK levels were mildly elevated -09/12 renal ultrasound: Bladder decompressed by a Brandon catheter and therefore not well evaluated. Otherwise, unremarkable renal sonogram findings. No evidence of hydronephrosis. -patient received adequate amount of IV fluid -urine output is improving, creatinine is down to 1.10 (2.90 on admission -monitor electrolytes, renal function and urine output (5) Acute hypernatremia: Code(s): E87.0 - Hyperosmolality and hypernatremia Status: Acute Assessment and Plan: Acute hypernatremia likely related to decreased p.o. intake, dehydration, free water loss, insensible water loss -sodium 165 on admission 09/12 -patient received adequate IV fluids -initially was on normal saline maintenance fluids which was switched to D5W per nephrology to treat her hyponatremia -unknown if chronic or acute hypernatremia -appreciate Nephrology evaluation and recommendations (6) Depression with anxiety: Code(s): F41.8 - Other specified anxiety disorders Status: Acute Assessment and Plan: Will hold paroxetine and trazodone (7) CVA (cerebral vascular accident): Code(s): I63.9 - Cerebral infarction, unspecif
--- NOTE | 2022-09-14 11:14 | PCFNICU ---
ICU Rounding Note: Pt current nutrition is Vital AF 1.2 at 55 ml/hr Last recorded weight is 119.1 kg. Bowel Motility: No BM reported. Labs Reviewed:Glu 191, Cr 1.10,Na 155, K 3.2,BUN 56, GFR 52 Meds Noted:Vancomycin, Flagyl, Cefepime,Protonix Skin: WNL Additional Notes: Patient remains on mechanical vent and tube feedings of Vital AF 1.2 at 55 ml/hr. Patient is tolerating tube feedings at goal rate with 30 ml flush q 4 hours. Agree with diet orders. Following daily in ICU rounds. Will monitor weight, labs, tube feedings tolerance every Sunday and Sunday.
--- NOTE | 2022-09-14 11:48 | PM.PNNEP ---
Progress Note: A&P Assessment and Plan (1) Acute renal failure: Qualifiers: Acute renal failure type: unspecified Qualified Code(s): N17.9 - Acute kidney failure, unspecified Code(s): N17.9 - Acute kidney failure, unspecified Status: Acute Assessment and Plan: the patient has acute kidney injury. Her baseline creatinine is 0.8. evaluation: Urine electrolytes look pre renal. Urinalysis shows protein +nitrates but only 0-5 white cells. Renal ultrasound shows no hydro and normal size kidneys. CK is mildly high but not high enough to cause kidney problems most likely this is GIOVANNA from dehydration. She is getting IV fluids. Her creatinine has improved and her urine output is improved somewhat as well. Her sodium is high. See below. Will continue D5W (2) Hypernatremia: Code(s): E87.0 - Hyperosmolality and hypernatremia Status: Acute Assessment and Plan: The patient has hypernatremia. her urine specific gravity is high and her urine output was low so DI is a very unlikely diagnosis. This is probably from free water deficit. She got 2L of fluid in the ER and also another L in the ICU. Her sodium level was improving on isotonic saline ( given because she was hypotensive) and when the blood pressure improved and the urine output improved her sodium level was coming down very slowly so I changed to D5W. Sodium is come down a little bit more with a rate of 100cc an hour. Will increase rate [id number] an hour for 5 hours and then resume 100cc an hour and check another sodium level. Tank will call me with that result (3) Obstructive sleep apnea: Code(s): G47.33 - Obstructive sleep apnea (adult) (pediatric) Status: Acute Assessment and Plan: the patient is on a ventilator now (4) Hyperlipidemia: Code(s): E78.5 - Hyperlipidemia, unspecified Status: Acute Assessment and Plan: she is on atorvastatin (5) Hypotension: Code(s): I95.9 - Hypotension, unspecified Status: Acute Assessment and Plan: patient's blood pressure improved. She is off pressors. (6) Encephalopathy: Code(s): G93.40 - Encephalopathy, unspecified Status: Acute Assessment and Plan: The patient did not wake up with holding the sedatives. This could be from multiple reasons including sepsis, former hypotension, hypernatremia. Subjective Date/time seen: 09/14/22 11:48 Interval history: Patient is not responsive. She is on a small dose of fentanyl. She was on a sedative holiday yesterday morning and did not wake up but did develop tachycardia and tachypnea so she was placed back on at low dose of sedatives. Review of Systems Review of Systems: ROS unobtainable: Yes unobtainable due to medical condition Exam Narrative: WDWN female sedated and on the ventilator skin no rash head ncat lungs Coarse bilateral cor reg no rub abd BS+ nontender and soft ext no edema. Objective Data Vital Signs Vital Signs: Vital Signs - 24 hr 09/13/22 16:00 09/13/22 20:05 09/13/22 20:05 Temperature 98.9 F Pulse Rate 101 H 84 84 Respiratory Rate 20 20 Blood Pressure 144/82 H Pulse Oximetry 100 100 Oxygen Delivery Mechanical Ventilation Fraction of Inspired Oxygen 30 09/13/22 20:30 09/13/22 20:00 09/13/22 20:00 Temperature Pulse Rate 86 85 85 Respiratory Rate 20 20 Blood Pressure Pulse Oximetry 100 Oxygen Delivery Mechanical Ventilation Fraction of Inspired Oxygen 30 09/13/22 20:00 09/13/22 20:00 09/13/22 22:00 Temperature 98.8 F Pulse Rate 85 88 Respiratory Rate 20 Blood Pressure 133/75 Pulse Oximetry 100 Oxygen Delivery Fraction of Inspired Oxygen 30 09/13/22 22:00 09/13/22 23:43 09/14/22 00:00 Temperature Pulse Rate 88 88 93 Respiratory Rate 20 Blood Pressure 126/58 L Pulse Oximetry 100 100 Oxygen Delivery M
[2022-09-14] MEDS: DEXTROSE 5% 1,000 ML 1,000 ML 200 ML IV CONT (11:49)
[2022-09-14 12:40] LABS: Glucose Point of Care 193 mg/dl (65-105)
[2022-09-14 13:34] LABS: Anion Gap 8 mmol/L (8-16); Blood Urea Nitrogen 97 mg/dL (7-17); Calcium 8.3 mg/dL (8.4-10.2); Carbon Dioxide 27 mmol/L (22-30); Chloride 126 mmol/L (98-107); Estimated CRCL calculation 34 ml/min; Estimated Glomerular Filt Rate 22; Glucose 124 mg/dL (65-110); Potassium 3.5 mmol/L (3.4-5.0); Sodium 161 mmol/L (137-145)
[2022-09-14 13:35] LABS: Alanine Aminotransferase 86 U/L (6-35); Albumin Level 3.2 g/dL (3.5-5.1); Alkaline Phosphatase 59 U/L (38-126); Aspartate Amino Transferase 75 U/L (14-36); Total Protein 5.9 g/dL (6.3-8.2)
[2022-09-14 17:20] LABS: Glucose Point of Care 209 mg/dl (65-105)
[2022-09-14] MEDS: DEXTROSE 5% 1,000 ML 1,000 ML 100 ML IVPB (17:23)
[2022-09-14 17:42] LABS: Anion Gap 7 mmol/L (8-16); Blood Urea Nitrogen 37 mg/dL (7-17); Calcium 8.2 mg/dL (8.4-10.2); Carbon Dioxide 27 mmol/L (22-30); Chloride 117 mmol/L (98-107); Estimated CRCL calculation 93 ml/min; Estimated Glomerular Filt Rate > 60; Glucose 211 mg/dL (65-110); Potassium 3.6 mmol/L (3.4-5.0); Sodium 151 mmol/L (137-145)
[2022-09-14] MEDS: CEFEPIME 2 GM/NS 50 ML 2 GM/50 ML BAG IVPB (20:03)
[2022-09-14 20:09] LABS: Glucose Point of Care 167 mg/dl (65-105)
[2022-09-14 23:55] LABS: Glucose Point of Care 165 mg/dl (65-105)
[2022-09-15] VITALS (32 sets, daily range): BP systolic 114–145; BP diastolic 55–84; PULSE 76–100; RESP 16–25; TEMP 37.1–37.4; O2SAT 96–100
[2022-09-15 02:15] LABS: Bilirubin Direct 0.2 mg/dL (0-0.3)
[2022-09-15] MEDS: IPRATROPIUM BR 0.02% INH SOLN 0.5 MG/2.5 ML VIAL INHALATION ×4 (02:28→21:31)
[2022-09-15] MEDS: LEVALBUTEROL NEB 1.25 MG/3 ML 0.63 MG INHALATION ×4 (02:28→21:31)
[2022-09-15] MEDS: DEXTROSE 5% 1,000 ML 1,000 ML 100 ML IV CONT (04:25)
[2022-09-15 04:35] LABS: Glucose Point of Care 137 mg/dl (65-105)
[2022-09-15 04:45] LABS: Pneumococcal Antigen Urine Not Detected (Not Detected)
[2022-09-15 05:31] LABS: Alveolar/Arterial O2 Gradient 89.2 mmHg; Fractional Inspired Oxygen 30 %; HCO3 ABG 23.8 mEq/l (22.0-26.0); Oxygen Content ABG 19.9 %vol (16.0-22.0); Oxygen Saturation ABG 96.5 % (95.0-100.0); Oxyhemoglobin 95.3 % THb (90.0-100.0); PCO2 ABG 36.2 mmHg (35.0-45.0); PO2 ABG 82.2 mmHg (80.0-100.0); PO2 FiO2 Ratio Arterial Blood 2.74 %; Total Hemoglobin 14.8 g/dL (12.0-18.0); pH ABG 7.435 (7.350-7.450)
[2022-09-15 05:33] LABS: Device VENTILATOR; Modified Allen's Test Pass; Site Drawn RIGHT RADIAL
[2022-09-15 05:34] LABS: Arterial Blood Gas Vent Mode CMV; Arterial Blood Gas Ventilator rate 20 /MIN
[2022-09-15 05:35] LABS: Arterial Blood Gas PEEP 8 cmH2O; Arterial Blood Gas Tidal Volume 450 ml
[2022-09-15] MEDS: CENTRAL LINE FLUSH 10 ML IV PUSH ×4 (05:37→21:20)
[2022-09-15] MEDS: metroNIDAZOLE 500 MG/ISO 100ML 500 MG/100 ML BAG 100 MG IVPB ×2 (05:37→14:12)
[2022-09-15 06:22] LABS: Basophils Percent Auto 0.2 % (0.2-1.2); Hematocrit 36.2 % (37.0-47.0); Hemoglobin 10.9 g/dL (12.0-15.0); Immature Granulocyte Absolute 0.13 K/mm3 (0.00-0.031); Immature Granulocyte Percent A 1.1 % (0-0.5); Immature Platelet Fraction Pct 14.3 % (0.9-11.2); Lymphocytes Absolute Auto 0.99 K/mm3 (0.9-3.2); Lymphocytes Percent Auto 8.7 % (18.3-44.2); Mean Corpuscular HGB Conc 30.1 g/dl (32-36); Mean Corpuscular Hemoglobin 31.9 pg (26-34); Mean Corpuscular Volume 105.8 fl (80-100); Monocytes Absolute Auto 0.6 K/mm3 (0.1-0.6); Neutrophils Absolute Auto 9.6 K/mm3 (1.3-6.7); Platelet Count Result 114 k/mm3 (150-375); Red Blood Count 3.42 M/mm3 (4.2-5.4); Red Cell Distribution Width 14.6 % (11.5-14.5); White Blood Count 11.4 K/mm3 (4.5-10.0)
[2022-09-15 06:34] LABS: Alanine Aminotransferase 77 U/L (6-35); Albumin Level 3.1 g/dL (3.5-5.1); Alkaline Phosphatase 77 U/L (38-126); Anion Gap 4 mmol/L (8-16); Aspartate Amino Transferase 119 U/L (14-36); Bilirubin,Total 1.3 mg/dL (0.2-1.3); Blood Urea Nitrogen 24 mg/dL (7-17); Calcium 8.3 mg/dL (8.4-10.2); Carbon Dioxide 27 mmol/L (22-30); Chloride 113 mmol/L (98-107); Estimated CRCL calculation 121 ml/min; Estimated Glomerular Filt Rate > 60; Glucose 163 mg/dL (65-110); Magnesium 2.5 mg/dL (1.6-2.3); Phosphorus 1.9 mg/dL (2.5-4.5); Potassium 3.5 mmol/L (3.4-5.0); Sodium 144 mmol/L (137-145)
[2022-09-15 06:47] LABS: Platelet Estimate Decreased (Adequate)
[2022-09-15 06:48] LABS: Anisocytosis 1+ (NORMAL); Schistocytes None Seen (NORMAL)
--- NOTE | 2022-09-15 08:14 | P.PNINT_ITS ---
Progress Note: A&P Assessment and Plan (1) Encephalopathy: Code(s): G93.40 - Encephalopathy, unspecified Status: Acute Assessment and Plan: Encephalopathy could be multifactorial -hypernatremia, hypotension, septic shock/infection, recent history of CVA -will continue to treat underlying issues -monitor closely -off all sedation - ordered EEG this morning (2) Acute respiratory failure: Qualifiers: Respiratory failure complication: unspecified whether with hypoxia or hypercapnia Qualified Code(s): J96.00 - Acute respiratory failure, unspecified whether with hypoxia or hypercapnia Code(s): J96.00 - Acute respiratory failure, unspecified whether with hypoxia or hypercapnia Status: Acute Assessment and Plan: Acute respiratory failure likely related to encephalopathy, possible aspiration, airway protection -intubated on 09/12/2022 -continue CMV mode of ventilation, peep of 8, 30% FiO2 -ABGs reviewed, O2 to maintain O2 sats > 92% -chest x-ray this morning: Small left pleural effusion with minimal left basilar airspace opacity and stable right basilar airspace opacity, atelectasis versus pneumonia -continue bronchodilators -off all sedation -unable to wean from the ventilator due to her mental status, -placed patient on ASV mode of ventilation (3) Septic shock: Code(s): A41.9 - Sepsis, unspecified organism; R65.21 - Severe sepsis with septic shock Status: Acute Assessment and Plan: Septic shock likely related to pneumonia, UTI -patient was adequately resuscitated in the ER and ICU. 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 -continue cefepime, Flagyl (09/12) -vancomycin was discontinued on 09/12 -09/12/2022: Echocardiogram showed EF of 60-65%, LV chamber dimension is normal, grade 1 diastolic dysfunction, RV systolic function is reduced, trace mitral and trace tricuspid valve regurgitation. Small anterior pericardial effusion (4) Acute renal failure: Qualifiers: Acute renal failure type: unspecified Qualified Code(s): N17.9 - Acute kidney failure, unspecified Code(s): N17.9 - Acute kidney failure, unspecified Status: Acute Assessment and Plan: Acute renal failure likely related to dehydration, hypotension, septic shock, ATN, infection, KALEIGH-inhibitor and Celebrex use at home Celebrex -urine lytes with prerenal -CK levels were mildly elevated -09/12 renal ultrasound: Bladder decompressed by a Brandon catheter and therefore not well evaluated. Otherwise, unremarkable renal sonogram findings. No evidence of hydronephrosis. -patient received adequate amount of IV fluid -urine output is improving, creatinine is down to 0.60 (2.90 on admission) -monitor electrolytes, renal function and urine output (5) Acute hypernatremia: Code(s): E87.0 - Hyperosmolality and hypernatremia Status: Acute Assessment and Plan: Acute hypernatremia likely related to decreased p.o. intake, dehydration, free water loss, insensible water loss -sodium 165 on admission 09/12 -patient received adequate IV fluids -initially was on normal saline maintenance fluids which was switched to D5W per nephrology to treat her hyponatremia -09/15: Sodium levels 144 this morning, discontinue D5 water, will discuss with Nephrology --appreciate Nephrology evaluation and recommendations (6) Depression with anxiety: Code(s): F41.8 - Other specified
[2022-09-15] MEDS: CEFEPIME 2 GM/NS 50 ML 2 GM/50 ML BAG IVPB ×2 (08:23→21:20)
[2022-09-15 08:24] LABS: Glucose Point of Care 140 mg/dl (65-105)
[2022-09-15] MEDS: MINERAL OIL/WHITE PETROLATUM OINTMENT 1 APPLIC EACH EYE ×2 (08:24→21:20)
[2022-09-15] MEDS: PANTOPRAZOLE SODIUM IV 40 MG VIAL IV PUSH (08:24)
[2022-09-15] MEDS: PARoxetine 10 MG TABLET 30 MG PO (08:24)
[2022-09-15] MEDS: APIXABAN 5 MG TABLET PO ×2 (08:24→21:20)
[2022-09-15 08:32] LABS: Hepatitis B Surface Antigen Negative (Negative)
[2022-09-15 08:50] LABS: Hepatitis C Virus Antibody Negative (Negative)
[2022-09-15 09:05] LABS: HAV RESULT Negative (Negative); Hepatitis B Core IgM Result Negative (Negative)
--- NOTE | 2022-09-15 10:32 | WPDNEUROLOGY ---
Neurology EEG Report General Information Date of Study: 09/15/22 TEST eeg DIAGNOSIS patient is unresponsive,EEG is being done to rule out the possibility of status epilepticus.
--- NOTE | 2022-09-15 10:47 | WPDNEUROLOGY ---
Neurology EEG Report General Information Date of Study: 09/15/22 TEST eeg DIAGNOSIS patient is in comatose status, EEG is being done to rule out subclinical seizures CONDITION OF RECORDING unresponsive EEG NUMBER [id number] CLINICAL HISTORY patient at present is in ICU on ventilator without any sedation for the last 12 hours but still remains in comatose status and also does not react to stimuli and unable to follow any commands. Question is being raised for the possibility of status epilepticus. EEG DESCRIPTION whole record consists of bihemispheric medium to high voltage 2 to 3 hertz per 2nd delta activity admixed with intermittent 5 to 7 hertz per 2nd theta activity and with poor otoniel posterior gradient. Obviously hyperventilation not done, Also photic stimulation not done. Non paroxysmal. Nonfocal. Nonlateralizing. IMPRESSION Abnormal record due to the presence of bihemispheric delta activity without evidence of any paroxysmal discharge. These abnormalities are consistent with diffuse organic or metabolic encephalopathy without evidence of any electrical seizures. Clinical correlation recommended.
--- NOTE | 2022-09-15 10:49 | PCNFU ---
Nutrition Follow-Up Complete: Inadequate Oral Intake as related to mechanical vent as evidenced by NPO. Goal: Meet estimated nutritional needs Patient is progressing towards goal. We will continue current goal. Pt current nutrition is Vital AF 1.2 at 55 ml/hr. Last recorded weight is 118.8 kg. Bowel Motility:+BM reported 09/15 Labs Reviewed:Mg 2.5, Glu 163, BUN 24, Hct 36.2,Hgb 10.9 Meds Noted:Flagyl, Vancomycin, Protonix, Eliquis Skin: WNL Additional Notes: Patient remain on mechanical vent. No sedation. Tube feeding being tolerated of Vital AF 1.2 at 55 ml/hr. Tube feedings providing 1452 kcals/90 gms protein/982 ml water. Tube feedings meeting 92% kcal needs at 15 kcal/kg. Protein needs are 100% (1.2-1.4 gm/kg IBW). Flush 30 ml q 4 hours. Agree with diet orders. Will monitor weight, labs, tube feedings tolerance every Sunday and Sunday.
--- NOTE | 2022-09-15 12:08 | PM.PNNEP ---
Progress Note: A&P Assessment and Plan (1) Acute renal failure: Qualifiers: Acute renal failure type: unspecified Qualified Code(s): N17.9 - Acute kidney failure, unspecified Code(s): N17.9 - Acute kidney failure, unspecified Status: Acute Assessment and Plan: the patient has acute kidney injury. Her baseline creatinine is 0.8. evaluation: Urine electrolytes look pre renal. Urinalysis shows protein +nitrates but only 0-5 white cells. Renal ultrasound shows no hydro and normal size kidneys. CK is mildly high but not high enough to cause kidney problems most likely this is GIOVANNA from dehydration. her creatinine has improved to normal. (2) Hypernatremia: Code(s): E87.0 - Hyperosmolality and hypernatremia Status: Acute Assessment and Plan: The patient has hypernatremia. her urine specific gravity is high and her urine output was low so DI is a very unlikely diagnosis. This is probably from free water deficit. She received extra free water yesterday and her sodium is at the upper limits of normal today. D5W has been stopped and she is now on tube feedings plus free water flushes. We can check a sodium at 4:00 p.m. and see how it is. (3) Obstructive sleep apnea: Code(s): G47.33 - Obstructive sleep apnea (adult) (pediatric) Status: Acute Assessment and Plan: the patient is on a ventilator now (4) Hyperlipidemia: Code(s): E78.5 - Hyperlipidemia, unspecified Status: Acute Assessment and Plan: she is on atorvastatin (5) Hypotension: Code(s): I95.9 - Hypotension, unspecified Status: Acute Assessment and Plan: patient's blood pressure improved. Systolic would tend to 140 for the most part in the last 24 hours. (6) Encephalopathy: Code(s): G93.40 - Encephalopathy, unspecified Status: Acute Assessment and Plan: The patient did not wake up with holding the sedatives. This could be from multiple reasons including sepsis, former hypotension, hypernatremia. Subjective Date/time seen: 09/15/22 12:08 Interval history: Patient is still on a small dose of fentanyl. Not interactive. Exam Narrative: WDWN female sedated and on the ventilator skin no rash Or subcu nodules head ncat lungs Coarse bilateral cor reg no rub or gallop abd BS+ nontender and soft ext no edema. Objective Data Vital Signs Vital Signs: Vital Signs - 24 hr 09/14/22 13:53 09/14/22 13:54 09/14/22 14:00 Temperature Pulse Rate 85 85 91 Respiratory Rate 20 Blood Pressure Pulse Oximetry 100 Oxygen Delivery Mechanical Ventilation Fraction of Inspired Oxygen 30 09/14/22 14:00 09/14/22 14:04 09/14/22 16:00 Temperature 99.3 F Pulse Rate 91 92 85 Respiratory Rate 18 21 H Blood Pressure 165/82 H Pulse Oximetry 100 Oxygen Delivery Fraction of Inspired Oxygen 09/14/22 16:00 09/14/22 16:00 09/14/22 16:00 Temperature 99.4 F Pulse Rate 85 85 Respiratory Rate 25 H 25 H Blood Pressure 169/94 H Pulse Oximetry 100 100 Oxygen Delivery Mechanical Ventilation Fraction of Inspired Oxygen 30 30 09/14/22 17:05 09/14/22 18:00 09/14/22 18:00 Temperature Pulse Rate 85 81 81 Respiratory Rate 20 Blood Pressure 161/91 H Pulse Oximetry 100 100 Oxygen Delivery Mechanical Ventilation Fraction of Inspired Oxygen 30 09/14/22 20:06 09/14/22 20:00 09/14/22 20:06 Temperature Pulse Rate 94 94 90 Respiratory Rate 21 H 22 H Blood Pressure Pulse Oximetry 100 Oxygen Delivery Mechanical Ventilation Fraction of Inspired Oxygen 30 09/14/22 20:00 09/14/22 20:00 09/14/22 20:01 Temperature 99.7 F H Pulse Rate 102 H Respiratory Rate 19 Blood Pressure 169/73 H Pulse Oximetry 100 Oxygen Delivery Mechanical Ventilation Fraction of Inspired Oxygen 30 30 09/14/22 20:36 09/14/22 20:00
[2022-09-15 13:09] LABS: Glucose Point of Care 121 mg/dl (65-105)
--- NOTE | 2022-09-15 13:42 | PM.IMPN ---
Progress Note: A&P Assessment and Plan (1) Encephalopathy: Code(s): G93.40 - Encephalopathy, unspecified Status: Acute Assessment and Plan: Encephalopathy could be multifactorial -hypernatremia, hypotension, septic shock/infection, recent history of CVA -will continue to treat underlying issues -monitor closely -off all sedation -ordered EEG this morning (2) Acute respiratory failure: Qualifiers: Respiratory failure complication: unspecified whether with hypoxia or hypercapnia Qualified Code(s): J96.00 - Acute respiratory failure, unspecified whether with hypoxia or hypercapnia Code(s): J96.00 - Acute respiratory failure, unspecified whether with hypoxia or hypercapnia Status: Acute Assessment and Plan: Acute respiratory failure likely related to encephalopathy, possible aspiration, airway protection -intubated on 09/12/2022 -continue CMV mode of ventilation, peep of 8, 30% FiO2 -ABGs reviewed, O2 to maintain O2 sats > 92% -chest x-ray this morning: Small left pleural effusion with minimal left basilar airspace opacity and stable right basilar airspace opacity, atelectasis versus pneumonia -continue bronchodilators -off all sedation -unable to wean from the ventilator due to her mental status, -placed patient on ASV mode of ventilation (3) Septic shock: Code(s): A41.9 - Sepsis, unspecified organism; R65.21 - Severe sepsis with septic shock Status: Acute Assessment and Plan: Septic shock likely related to pneumonia, UTI -patient was adequately resuscitated in the ER and ICU. 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 -continue cefepime, Flagyl (09/12) -vancomycin was discontinued on 09/12 -09/12/2022: Echocardiogram showed EF of 60-65%, LV chamber dimension is normal, grade 1 diastolic dysfunction, RV systolic function is reduced, trace mitral and trace tricuspid valve regurgitation. Small anterior pericardial effusion (4) Acute renal failure: Qualifiers: Acute renal failure type: unspecified Qualified Code(s): N17.9 - Acute kidney failure, unspecified Code(s): N17.9 - Acute kidney failure, unspecified Status: Acute Assessment and Plan: Acute renal failure likely related to dehydration, hypotension, septic shock, ATN, infection, KALEIGH-inhibitor and Celebrex use at home Celebrex -urine lytes with prerenal -CK levels were mildly elevated -09/12 renal ultrasound: Bladder decompressed by a Brandon catheter and therefore not well evaluated. Otherwise, unremarkable renal sonogram findings. No evidence of hydronephrosis. -patient received adequate amount of IV fluid -urine output is improving, creatinine is down to 0.60 (2.90 on admission) -monitor electrolytes, renal function and urine output (5) Acute hypernatremia: Code(s): E87.0 - Hyperosmolality and hypernatremia Status: Acute Assessment and Plan: Acute hypernatremia likely related to decreased p.o. intake, dehydration, free water loss, insensible water loss -sodium 165 on admission 09/12 -patient received adequate IV fluids -initially was on normal saline maintenance fluids which was switched to D5W per nephrology to treat her hyponatremia -09/15: Sodium levels 144 this morning, discontinue D5 water, will discuss with Nephrology --appreciate Nephrology evaluation and recommendations (6) Depression with anxiety: Code(s): F41.8 - Other specified anxiety disorders Status: Acute Assessment and Plan: Will hold paroxetine and trazodone (7) CVA (cerebral vascular accident): Qualifiers: CVA mechanism: unspecified Qualified Code(s): I63.9 - Cerebral infarction, unspecified Code(s): I63.9 - Cerebral infarction, unspecified Status: Acute Assessment an
[2022-09-15 15:05] LABS: Mycoplasma IgM Antibody Titer 233 U/mL (<770)
[2022-09-15 16:25] LABS: Sodium 143 mmol/L (137-145)
[2022-09-15 17:54] LABS: Glucose Point of Care 132 mg/dl (65-105)
[2022-09-15 21:08] LABS: Osmolality, Urine 723 mOsm/kg (50-1200)
[2022-09-15] MEDS: metroNIDAZOLE 250 MG TABLET 500 MG FEED TUBE (21:20)
[2022-09-16] VITALS (31 sets, daily range): BP systolic 96–154; BP diastolic 50–91; PULSE 74–102; RESP 15–26; TEMP 36.9–37.5; O2SAT 97–100
[2022-09-16 00:20] LABS: Glucose Point of Care 107 mg/dl (65-105)
[2022-09-16] MEDS: LEVALBUTEROL NEB 1.25 MG/3 ML 0.63 MG INHALATION ×4 (02:39→20:48)
[2022-09-16] MEDS: IPRATROPIUM BR 0.02% INH SOLN 0.5 MG/2.5 ML VIAL INHALATION ×4 (02:40→20:48)
[2022-09-16 04:35] LABS: Alveolar/Arterial O2 Gradient 84.8 mmHg; Base Excess ABG 2.9 mEq/l (+/-2.0); Carboxyhemoglobin 0.3 % THb (0-2.0); Fractional Inspired Oxygen 30 %; HCO3 ABG 26.8 mEq/l (22.0-26.0); Methemoglobin ABG 0.4 %THb (0-1.5); Oxygen Content ABG 17.5 %vol (16.0-22.0); Oxygen Saturation ABG 96.7 % (95.0-100.0); Oxyhemoglobin 95.4 % THb (90.0-100.0); PCO2 ABG 38.7 mmHg (35.0-45.0); PO2 ABG 83.6 mmHg (80.0-100.0); PO2 FiO2 Ratio Arterial Blood 2.79 %; Reduced Hemoglobin 3.9 %THb (0-5.0); pH ABG 7.458 (7.350-7.450)
[2022-09-16 04:36] LABS: Device VENTILATOR; Modified Allen's Test Pass; Site Drawn RIGHT RADIAL
[2022-09-16 04:37] LABS: Arterial Blood Gas PEEP 8 cmH2O; Arterial Blood Gas Vent Mode ASV
[2022-09-16 05:42] LABS: Basophils Percent Auto 0.2 % (0.2-1.2); Hematocrit 35.4 % (37.0-47.0); Immature Granulocyte Absolute 0.09 K/mm3 (0.00-0.031); Immature Granulocyte Percent A 0.8 % (0-0.5); Immature Platelet Fraction Pct 13.9 % (0.9-11.2); Lymphocytes Absolute Auto 1.07 K/mm3 (0.9-3.2); Mean Corpuscular HGB Conc 31.1 g/dl (32-36); Mean Corpuscular Hemoglobin 32.1 pg (26-34); Mean Corpuscular Volume 103.2 fl (80-100); Mean Platelet Volume 13.1 fl (7.4-10.4); Monocytes Absolute Auto 0.7 K/mm3 (0.1-0.6); Monocytes Percent Auto 6.1 % (2.6-8.5); Neutrophils Absolute Auto 8.8 K/mm3 (1.3-6.7); Neutrophils Percent Auto 82.9 % (45.5-73.1); Nucleated Red Blood Cells Perc 0.2 % (0.0-0.2); Platelet Count Result 127 k/mm3 (150-375); Red Blood Count 3.43 M/mm3 (4.2-5.4); Red Cell Distribution Width 14.4 % (11.5-14.5); White Blood Count 10.7 K/mm3 (4.5-10.0)
[2022-09-16 05:52] LABS: Legionella pneumophila Ag Ur Not Detected (Not Detected)
[2022-09-16 05:53] LABS: Alanine Aminotransferase 92 U/L (6-35); Albumin Level 3.1 g/dL (3.5-5.1); Alkaline Phosphatase 74 U/L (38-126); Anion Gap 2 mmol/L (8-16); Aspartate Amino Transferase 161 U/L (14-36); Bilirubin,Total 1.2 mg/dL (0.2-1.3); Blood Urea Nitrogen 19 mg/dL (7-17); Calcium 8.9 mg/dL (8.4-10.2); Carbon Dioxide 32 mmol/L (22-30); Chloride 108 mmol/L (98-107); Estimated CRCL calculation 142 ml/min; Estimated Glomerular Filt Rate > 60; Glucose 135 mg/dL (65-110); Magnesium 2.5 mg/dL (1.6-2.3); Phosphorus 2.3 mg/dL (2.5-4.5); Potassium 3.8 mmol/L (3.4-5.0); Sodium 142 mmol/L (137-145)
[2022-09-16] MEDS: metroNIDAZOLE 250 MG TABLET 500 MG FEED TUBE ×3 (06:00→22:07)
[2022-09-16] MEDS: CENTRAL LINE FLUSH 10 ML IV PUSH ×6 (06:01→22:07)
[2022-09-16] MEDS: CEFEPIME 2 GM/NS 50 ML 2 GM/50 ML BAG IVPB ×2 (08:28→19:58)
[2022-09-16] MEDS: PANTOPRAZOLE SODIUM IV 40 MG VIAL IV PUSH (08:29)
[2022-09-16] MEDS: MINERAL OIL/WHITE PETROLATUM OINTMENT 1 APPLIC EACH EYE ×2 (08:29→19:58)
[2022-09-16] MEDS: APIXABAN 5 MG TABLET PO ×2 (08:29→19:58)
[2022-09-16] MEDS: PARoxetine 10 MG TABLET 30 MG PO (08:29)
--- NOTE | 2022-09-16 08:37 | WPDINTPN ---
Progress Note: A&P Assessment and Plan (1) Encephalopathy: Code(s): G93.40 - Encephalopathy, unspecified Status: Acute Assessment and Plan: Encephalopathy could be multifactorial -hypernatremia, hypotension, septic shock/infection, recent history of CVA -will continue to treat underlying issues -monitor closely -off all sedation -60/16 EEG:Abnormal record due to the presence of bihemispheric delta activity without evidence of any paroxysmal discharge.? These abnormalities are consistent with diffuse organic or metabolic encephalopathy without evidence of any electrical seizures. -Discussed EEG with Dr. Merino, who stated that the EEG was not favorable and that she may have had some hypoxic injury, she may remain in this state with likely no improvement (2) Acute respiratory failure: Qualifiers: Respiratory failure complication: unspecified whether with hypoxia or hypercapnia Qualified Code(s): J96.00 - Acute respiratory failure, unspecified whether with hypoxia or hypercapnia Code(s): J96.00 - Acute respiratory failure, unspecified whether with hypoxia or hypercapnia Status: Acute Assessment and Plan: Acute respiratory failure likely related to encephalopathy, possible aspiration, airway protection -intubated on 09/12/2022 -currently on ASV mode of ventilation, peep of 8, 30% FiO2 -ABGs reviewed, O2 to maintain O2 sats > 92% -chest x-ray this morning: Small left pleural effusion with minimal left basilar airspace opacity and stable right basilar airspace opacity, atelectasis versus pneumonia -continue bronchodilators -off all sedation -unable to wean from the ventilator due to her mental status, (3) Septic shock: Code(s): A41.9 - Sepsis, unspecified organism; R65.21 - Severe sepsis with septic shock Status: Acute Assessment and Plan: Septic shock likely related to pneumonia, UTI -patient was adequately resuscitated in the ER and ICU. -OFF all vasopressors -09/12: blood cultures - no growth 05/04 bottles -09/12: urine cultures -negative -09/12: MRSA screen is negative -09/12 sputum culture: Specimen is tax representative of lower respiratory tract. -continue cefepime, Flagyl (09/12) -vancomycin was discontinued on 09/12 -09/12/2022: Echocardiogram showed EF of 60-65%, LV chamber dimension is normal, grade 1 diastolic dysfunction, RV systolic function is reduced, trace mitral and trace tricuspid valve regurgitation. Small anterior pericardial effusion (4) Acute renal failure: Qualifiers: Acute renal failure type: unspecified Qualified Code(s): N17.9 - Acute kidney failure, unspecified Code(s): N17.9 - Acute kidney failure, unspecified Status: Acute Assessment and Plan: RESOLVED Acute renal failure likely related to dehydration, hypotension, septic shock, ATN, infection, KALEIGH-inhibitor and Celebrex use at home Celebrex -urine lytes with prerenal -CK levels were mildly elevated -09/12 renal ultrasound: Bladder decompressed by a Brandon catheter and therefore not well evaluated. Otherwise, unremarkable renal sonogram findings. No evidence of hydronephrosis. -patient received adequate amount of IV fluid -urine output is improving, creatinine is down to 0.50 (2.90 on admission) -monitor electrolytes, renal function and urine output (5) Acute hypernatremia: Code(s): E87.0 - Hyperosmolality and hypernatremia Status: Acute Assessment and Plan: Acute hypernatremia likely related to decreased p.o. intake, dehydration, free water loss, insensible water loss -sodium 165 on admission 09/12 -patient received adequate IV fluids -initially was on normal saline maintenance fluids which was switched to D5W per nephrology to treat her hyponatremia -09/15: Sodium levels 144 this morning, discontinue D5 water, nephrology was agreeable -09/16: Sodium levels 142 this morning --appreciate Nephrology evaluation and recommendations (6) Susan
[2022-09-16] MEDS: levETIRAcetam 1000MG/NACL100ML 1,000 MG/100 ML BAG 400 MG IVPB (10:24)
--- NOTE | 2022-09-16 10:27 | PM.PNNEP ---
Progress Note: A&P Assessment and Plan (1) Acute renal failure: Qualifiers: Acute renal failure type: unspecified Qualified Code(s): N17.9 - Acute kidney failure, unspecified Code(s): N17.9 - Acute kidney failure, unspecified Status: Acute Assessment and Plan: the patient has acute kidney injury. Her baseline creatinine is 0.8. evaluation: Urine electrolytes look pre renal. Urinalysis shows protein +nitrates but only 0-5 white cells. Renal ultrasound shows no hydro and normal size kidneys. CK is mildly high but not high enough to cause kidney problems most likely this is GIOVANNA from dehydration. this is resolved. (2) Hypernatremia: Code(s): E87.0 - Hyperosmolality and hypernatremia Status: Acute Assessment and Plan: The patient had hypernatremia. sodium down now and off hypotonic ivfs. on TFs and small amt of fluishes and sodium improved from 144 to 142. I talked with Dr Hansen; Renal will sign off (3) Obstructive sleep apnea: Code(s): G47.33 - Obstructive sleep apnea (adult) (pediatric) Status: Acute Assessment and Plan: the patient is on a ventilator now (4) Hyperlipidemia: Code(s): E78.5 - Hyperlipidemia, unspecified Status: Acute Assessment and Plan: she is on atorvastatin (5) Hypotension: Code(s): I95.9 - Hypotension, unspecified Status: Acute Assessment and Plan: resolved. (6) Encephalopathy: Code(s): G93.40 - Encephalopathy, unspecified Status: Acute Assessment and Plan: The patient is still not waking up without the sedatives. electrolytes and BUN are okay now. EEG shows issues per neurology. Subjective Date/time seen: 09/16/22 10:27 Interval history: Patient is off sedatives. still not responsive. Exam Narrative: WDWN female on the ventilator skin no rash head ncat lungs Coarse bilateral cor reg no rub or gallop abd BS+ nontender and soft ext no edema or cyanosis. Objective Data Vital Signs Vital Signs: Vital Signs - 24 hr 09/15/22 10:34 09/15/22 12:00 09/15/22 12:00 Temperature Pulse Rate 81 86 Respiratory Rate Blood Pressure Pulse Oximetry 100 Oxygen Delivery Mechanical Ventilation Fraction of Inspired Oxygen 30 30 09/15/22 12:00 09/15/22 12:00 09/15/22 14:21 Temperature 99.1 F Pulse Rate 86 86 90 Respiratory Rate 20 20 22 H Blood Pressure 127/78 Pulse Oximetry 100 100 Oxygen Delivery Mechanical Ventilation Fraction of Inspired Oxygen 30 09/15/22 14:24 09/15/22 14:35 09/15/22 14:00 Temperature Pulse Rate 90 91 92 Respiratory Rate 19 Blood Pressure Pulse Oximetry 100 Oxygen Delivery Mechanical Ventilation Fraction of Inspired Oxygen 30 09/15/22 14:00 09/15/22 16:00 09/15/22 16:00 Temperature 99 F Pulse Rate 92 100 Respiratory Rate 19 Blood Pressure 128/84 Pulse Oximetry 100 Oxygen Delivery Fraction of Inspired Oxygen 30 09/15/22 16:00 09/15/22 16:00 09/15/22 17:37 Temperature 98.9 F Pulse Rate 100 100 91 Respiratory Rate 19 19 Blood Pressure 134/83 Pulse Oximetry 99 99 100 Oxygen Delivery Mechanical Ventilation Mechanical Ventilation Fraction of Inspired Oxygen 30 30 09/15/22 18:00 09/15/22 18:00 09/15/22 20:00 Temperature 99.1 F Pulse Rate 97 94 87 Respiratory Rate 22 H Blood Pressure 133/72 Pulse Oximetry 100 Oxygen Delivery Fraction of Inspired Oxygen 09/15/22 21:25 09/15/22 21:33 09/15/22 21:40 Temperature Pulse Rate 94 97 97 Respiratory Rate 25 H 22 H Blood Pressure Pulse Oximetry 96 Oxygen Delivery Mechanical Ventilation Fraction of Inspired Oxygen 30 09/15/22 20:00 09/15/22 20:00 09/15/22 20:00 Temperature 99.3 F Pulse Rate 87 Respiratory Rate 22 H Blood Pressure 129/66 Pulse Oximetry 100 Oxygen Delivery Mechanical Ventilation Fraction
[2022-09-16 13:05] LABS: Glucose Point of Care 129 mg/dl (65-105)
--- NOTE | 2022-09-16 17:16 | PM.IMPN ---
Progress Note: A&P Assessment and Plan (1) Encephalopathy: Code(s): G93.40 - Encephalopathy, unspecified Status: Acute Assessment and Plan: Encephalopathy could be multifactorial -hypernatremia, hypotension, septic shock/infection, recent history of CVA -will continue to treat underlying issues -monitor closely -off all sedation -60/16 EEG:Abnormal record due to the presence of bihemispheric delta activity without evidence of any paroxysmal discharge.? These abnormalities are consistent with diffuse organic or metabolic encephalopathy without evidence of any electrical seizures. -EEG was not favorable and that she may have had some hypoxic injury, she may remain in this state with likely no improvement (2) Acute respiratory failure: Qualifiers: Respiratory failure complication: unspecified whether with hypoxia or hypercapnia Qualified Code(s): J96.00 - Acute respiratory failure, unspecified whether with hypoxia or hypercapnia Code(s): J96.00 - Acute respiratory failure, unspecified whether with hypoxia or hypercapnia Status: Acute Assessment and Plan: Acute respiratory failure likely related to encephalopathy, possible aspiration, airway protection -intubated on 09/12/2022 -currently on ASV mode of ventilation, peep of 8, 30% FiO2 -ABGs reviewed, O2 to maintain O2 sats > 92% -chest x-ray this morning: Small left pleural effusion with minimal left basilar airspace opacity and stable right basilar airspace opacity, atelectasis versus pneumonia -continue bronchodilators -off all sedation -unable to wean from the ventilator due to her mental status, (3) Septic shock: Code(s): A41.9 - Sepsis, unspecified organism; R65.21 - Severe sepsis with septic shock Status: Acute Assessment and Plan: Septic shock likely related to pneumonia, UTI -patient was adequately resuscitated in the ER and ICU. -OFF all vasopressors -09/12: blood cultures - no growth 05/04 bottles -09/12: urine cultures -negative -09/12: MRSA screen is negative -09/12 sputum culture: Specimen is life assurance representative of lower respiratory tract. -continue cefepime, Flagyl (09/12) -vancomycin was discontinued on 09/12 -09/12/2022: Echocardiogram showed EF of 60-65%, LV chamber dimension is normal, grade 1 diastolic dysfunction, RV systolic function is reduced, trace mitral and trace tricuspid valve regurgitation. Small anterior pericardial effusion (4) Acute renal failure: Qualifiers: Acute renal failure type: unspecified Qualified Code(s): N17.9 - Acute kidney failure, unspecified Code(s): N17.9 - Acute kidney failure, unspecified Status: Acute Assessment and Plan: RESOLVED Acute renal failure likely related to dehydration, hypotension, septic shock, ATN, infection, KALEIGH-inhibitor and Celebrex use at home Celebrex -urine lytes with prerenal -CK levels were mildly elevated -09/12 renal ultrasound: Bladder decompressed by a Brandon catheter and therefore not well evaluated. Otherwise, unremarkable renal sonogram findings. No evidence of hydronephrosis. -patient received adequate amount of IV fluid -urine output is improving, creatinine is down to 0.50 (2.90 on admission) -monitor electrolytes, renal function and urine output (5) Acute hypernatremia: Code(s): E87.0 - Hyperosmolality and hypernatremia Status: Acute Assessment and Plan: Acute hypernatremia likely related to decreased p.o. intake, dehydration, free water loss, insensible water loss -sodium 165 on admission 09/12 -patient received adequate IV fluids -initially was on normal saline maintenance fluids which was switched to D5W per nephrology to treat her hyponatremia -09/15: Sodium levels 144 this morning, discontinue D5 water, nephrology was agreeable -09/16: Sodium levels 142 this morning --appreciate Nephrology evaluation and recommendations (6) Depression with anxiety: Code(s): F41.8 - Other
[2022-09-16 18:50] LABS: Glucose Point of Care 128 mg/dl (65-105)
[2022-09-16] MEDS: levETIRAcetam 500MG/NACL 100ML 500 MG/100 ML BAG 400 MG IVPB (19:57)
[2022-09-17] VITALS (26 sets, daily range): BP systolic 116–149; BP diastolic 51–86; PULSE 75–112; RESP 14–25; TEMP 36.8–37.3; O2SAT 96–100
[2022-09-17 00:55] LABS: Glucose Point of Care 146 mg/dl (65-105)
[2022-09-17] MEDS: LEVALBUTEROL NEB 1.25 MG/3 ML 0.63 MG INHALATION ×4 (02:13→20:15)
[2022-09-17] MEDS: IPRATROPIUM BR 0.02% INH SOLN 0.5 MG/2.5 ML VIAL INHALATION ×4 (02:13→20:15)
[2022-09-17 04:36] LABS: Basophils Percent Auto 0.3 % (0.2-1.2); Hematocrit 34.2 % (37.0-47.0); Hemoglobin 10.8 g/dL (12.0-15.0); Immature Granulocyte Percent A 1.1 % (0-0.5); Lymphocytes Absolute Auto 1.18 K/mm3 (0.9-3.2); Lymphocytes Percent Auto 13.4 % (18.3-44.2); Mean Corpuscular HGB Conc 31.6 g/dl (32-36); Mean Corpuscular Hemoglobin 32.2 pg (26-34); Mean Corpuscular Volume 102.1 fl (80-100); Mean Platelet Volume 12.3 fl (7.4-10.4); Monocytes Absolute Auto 0.6 K/mm3 (0.1-0.6); Neutrophils Absolute Auto 6.9 K/mm3 (1.3-6.7); Neutrophils Percent Auto 78.2 % (45.5-73.1); Platelet Count Result 135 k/mm3 (150-375); Red Blood Count 3.35 M/mm3 (4.2-5.4); Red Cell Distribution Width 14.1 % (11.5-14.5); White Blood Count 8.8 K/mm3 (4.5-10.0)
[2022-09-17 04:53] LABS: Alanine Aminotransferase 110 U/L (6-35); Alkaline Phosphatase 70 U/L (38-126); Anion Gap 2 mmol/L (8-16); Aspartate Amino Transferase 142 U/L (14-36); Blood Urea Nitrogen 19 mg/dL (7-17); Calcium 8.9 mg/dL (8.4-10.2); Carbon Dioxide 33 mmol/L (22-30); Chloride 107 mmol/L (98-107); Estimated CRCL calculation 141 ml/min; Estimated Glomerular Filt Rate > 60; Glucose 138 mg/dL (65-110); Magnesium 2.2 mg/dL (1.6-2.3); Phosphorus 2.5 mg/dL (2.5-4.5); Potassium 3.7 mmol/L (3.4-5.0); Sodium 142 mmol/L (137-145)
[2022-09-17 05:59] LABS: Alveolar/Arterial O2 Gradient 74.2 mmHg; Base Excess ABG 4.1 mEq/l (+/-2.0); Carboxyhemoglobin 0.3 % THb (0-2.0); Fractional Inspired Oxygen 30 %; HCO3 ABG 28.3 mEq/l (22.0-26.0); Methemoglobin ABG 0.5 %THb (0-1.5); Oxygen Content ABG 16.8 %vol (16.0-22.0); Oxygen Saturation ABG 97.4 % (95.0-100.0); Oxyhemoglobin 95.8 % THb (90.0-100.0); PCO2 ABG 40.9 mmHg (35.0-45.0); PO2 ABG 91.6 mmHg (80.0-100.0); PO2 FiO2 Ratio Arterial Blood 3.05 %; Reduced Hemoglobin 3.4 %THb (0-5.0); Total Hemoglobin 12.4 g/dL (12.0-18.0); pH ABG 7.458 (7.350-7.450)
[2022-09-17 06:00] LABS: Arterial Blood Gas Vent Mode ASV; Device VENTILATOR; Modified Allen's Test Pass; Site Drawn LEFT RADIAL
[2022-09-17 06:01] LABS: Arterial Blood Gas PEEP 8 cmH2O
[2022-09-17] MEDS: metroNIDAZOLE 250 MG TABLET 500 MG FEED TUBE ×3 (07:00→20:46)
[2022-09-17] MEDS: CENTRAL LINE FLUSH 10 ML IV PUSH ×4 (07:00→22:00)
--- NOTE | 2022-09-17 08:05 | WPDINTPN ---
Progress Note: A&P Assessment and Plan (1) Encephalopathy: Code(s): G93.40 - Encephalopathy, unspecified Status: Acute Assessment and Plan: Encephalopathy could be multifactorial -hypernatremia, hypotension, septic shock/infection, recent history of CVA -will continue to treat underlying issues -monitor closely -off all sedation -09/15 EEG: Abnormal record due to the presence of bihemispheric delta activity without evidence of any paroxysmal discharge.? These abnormalities are consistent with diffuse organic or metabolic encephalopathy without evidence of any electrical seizures. -Discussed EEG with Dr. Merino, who stated that the EEG was not favorable and that she may have had some hypoxic injury, she may remain in this state with likely no improvement (2) Acute respiratory failure: Qualifiers: Respiratory failure complication: unspecified whether with hypoxia or hypercapnia Qualified Code(s): J96.00 - Acute respiratory failure, unspecified whether with hypoxia or hypercapnia Code(s): J96.00 - Acute respiratory failure, unspecified whether with hypoxia or hypercapnia Status: Acute Assessment and Plan: Acute respiratory failure likely related to encephalopathy, possible aspiration, airway protection -intubated on 09/12/2022 -currently on ASV mode of ventilation, peep of 8, 30% FiO2 -ABGs reviewed, O2 to maintain O2 sats > 92% -chest x-ray this morning: Small left pleural effusion with minimal left basilar airspace opacity and stable right basilar airspace opacity, atelectasis versus pneumonia -continue bronchodilators -off all sedation -unable to wean from the ventilator due to her mental status, (3) Septic shock: Code(s): A41.9 - Sepsis, unspecified organism; R65.21 - Severe sepsis with septic shock Status: Acute Assessment and Plan: RESOLVED Septic shock likely related to pneumonia, UTI -patient was adequately resuscitated in the ER and ICU. -OFF all vasopressors -09/12: blood cultures - no growth 05/04 bottles -09/12: urine cultures -negative -09/12: MRSA screen is negative -09/12 sputum culture: Specimen is sales representative canvas products of lower respiratory tract. -continue cefepime, Flagyl (09/12) for total of 7 days -vancomycin was discontinued on 09/12 -09/12/2022: Echocardiogram showed EF of 60-65%, LV chamber dimension is normal, grade 1 diastolic dysfunction, RV systolic function is reduced, trace mitral and trace tricuspid valve regurgitation. Small anterior pericardial effusion (4) Acute renal failure: Qualifiers: Acute renal failure type: unspecified Qualified Code(s): N17.9 - Acute kidney failure, unspecified Code(s): N17.9 - Acute kidney failure, unspecified Status: Acute Assessment and Plan: RESOLVED Acute renal failure likely related to dehydration, hypotension, septic shock, ATN, infection, KALEIGH-inhibitor and Celebrex use at home Celebrex -urine lytes with prerenal -CK levels were mildly elevated -09/12 renal ultrasound: Bladder decompressed by a Brandon catheter and therefore not well evaluated. Otherwise, unremarkable renal sonogram findings. No evidence of hydronephrosis. -patient received adequate amount of IV fluid -urine output is improving, creatinine is down to 0.50 (2.90 on admission) -monitor electrolytes, renal function and urine output (5) Acute hypernatremia: Code(s): E87.0 - Hyperosmolality and hypernatremia Status: Acute Assessment and Plan: RESOLVED Acute hypernatremia likely related to decreased p.o. intake, dehydration, free water loss, insensible water loss -sodium 165 on admission 09/12 -patient received adequate IV fluids -initially was on normal saline maintenance fluids which was switched to D5W per nephrology to treat her hyponatremia -09/15: Sodium levels 144 this morning, discontinue D5 water, nephrology was agreeable -09/16: Sodium levels 142 this morning -sodium levels remained s
[2022-09-17] MEDS: MINERAL OIL/WHITE PETROLATUM OINTMENT 1 APPLIC EACH EYE ×2 (08:06→22:00)
[2022-09-17] MEDS: APIXABAN 5 MG TABLET PO ×2 (08:06→20:45)
[2022-09-17] MEDS: levETIRAcetam 500MG/NACL 100ML 500 MG/100 ML BAG 400 MG IVPB ×2 (08:07→20:46)
[2022-09-17] MEDS: PANTOPRAZOLE SODIUM IV 40 MG VIAL IV PUSH (08:07)
[2022-09-17] MEDS: PARoxetine 10 MG TABLET 30 MG PO (08:07)
[2022-09-17] MEDS: CEFEPIME 2 GM/NS 50 ML 2 GM/50 ML BAG IVPB ×2 (08:12→20:46)
[2022-09-17 12:32] LABS: Glucose Point of Care 127 mg/dl (65-105)
--- NOTE | 2022-09-17 13:54 | PM.IMPN ---
Progress Note: A&P Assessment and Plan (1) Encephalopathy: Code(s): G93.40 - Encephalopathy, unspecified Status: Acute Assessment and Plan: Encephalopathy could be multifactorial -hypernatremia, hypotension, septic shock/infection, recent history of CVA -will continue to treat underlying issues -monitor closely -off all sedation -09/15 EEG: Abnormal record due to the presence of bihemispheric delta activity without evidence of any paroxysmal discharge.? These abnormalities are consistent with diffuse organic or metabolic encephalopathy without evidence of any electrical seizures. -EEG was not favorable and that she may have had some hypoxic injury, she may remain in this state with likely no improvement (2) Acute respiratory failure: Qualifiers: Respiratory failure complication: unspecified whether with hypoxia or hypercapnia Qualified Code(s): J96.00 - Acute respiratory failure, unspecified whether with hypoxia or hypercapnia Code(s): J96.00 - Acute respiratory failure, unspecified whether with hypoxia or hypercapnia Status: Acute Assessment and Plan: Acute respiratory failure likely related to encephalopathy, possible aspiration, airway protection -intubated on 09/12/2022 -currently on ASV mode of ventilation, peep of 8, 30% FiO2 -ABGs reviewed, O2 to maintain O2 sats > 92% -chest x-ray this morning: Small left pleural effusion with minimal left basilar airspace opacity and stable right basilar airspace opacity, atelectasis versus pneumonia -continue bronchodilators -off all sedation -unable to wean from the ventilator due to her mental status (3) Septic shock: Code(s): A41.9 - Sepsis, unspecified organism; R65.21 - Severe sepsis with septic shock Status: Acute Assessment and Plan: RESOLVED Septic shock likely related to pneumonia, UTI -patient was adequately resuscitated in the ER and ICU. -OFF all vasopressors -09/12: blood cultures - no growth 05/04 bottles -09/12: urine cultures -negative -09/12: MRSA screen is negative -09/12 sputum culture: Specimen is sales promotion representative of lower respiratory tract. -continue cefepime, Flagyl (09/12) for total of 7 days -vancomycin was discontinued on 09/12 -09/12/2022: Echocardiogram showed EF of 60-65%, LV chamber dimension is normal, grade 1 diastolic dysfunction, RV systolic function is reduced, trace mitral and trace tricuspid valve regurgitation. Small anterior pericardial effusion (4) Acute renal failure: Qualifiers: Acute renal failure type: unspecified Qualified Code(s): N17.9 - Acute kidney failure, unspecified Code(s): N17.9 - Acute kidney failure, unspecified Status: Acute Assessment and Plan: RESOLVED Acute renal failure likely related to dehydration, hypotension, septic shock, ATN, infection, KALEIGH-inhibitor and Celebrex use at home Celebrex -urine lytes with prerenal -CK levels were mildly elevated -09/12 renal ultrasound: Bladder decompressed by a Brandon catheter and therefore not well evaluated. Otherwise, unremarkable renal sonogram findings. No evidence of hydronephrosis. -patient received adequate amount of IV fluid -urine output is improving, creatinine is down to 0.50 (2.90 on admission) -monitor electrolytes, renal function and urine output (5) Acute hypernatremia: Code(s): E87.0 - Hyperosmolality and hypernatremia Status: Acute Assessment and Plan: RESOLVED Acute hypernatremia likely related to decreased p.o. intake, dehydration, free water loss, insensible water loss -sodium 165 on admission 09/12 -patient received adequate IV fluids -initially was on normal saline maintenance fluids which was switched to D5W per nephrology to treat her hyponatremia -09/15: Sodium levels 144 this morning, discontinue D5 water, nephrology was agreeable -09/16: Sodium levels 142 this morning -sodium levels remained stable at 142 --appreciate Nephrology evaluation
[2022-09-17 18:11] LABS: Glucose Point of Care 112 mg/dl (65-105)
[2022-09-18] VITALS (28 sets, daily range): BP systolic 109–139; BP diastolic 54–76; PULSE 80–114; RESP 13–27; TEMP 36.9–37.6; O2SAT 96–100
[2022-09-18 00:21] LABS: Glucose Point of Care 125 mg/dl (65-105)
[2022-09-18] MEDS: IPRATROPIUM BR 0.02% INH SOLN 0.5 MG/2.5 ML VIAL INHALATION ×4 (02:02→19:38)
[2022-09-18] MEDS: LEVALBUTEROL NEB 1.25 MG/3 ML 0.63 MG INHALATION ×4 (02:02→19:39)
[2022-09-18 05:10] LABS: Alanine Aminotransferase 129 U/L (6-35); Alkaline Phosphatase 75 U/L (38-126); Anion Gap 1 mmol/L (8-16); Aspartate Amino Transferase 116 U/L (14-36); Bilirubin,Total 0.8 mg/dL (0.2-1.3); Blood Urea Nitrogen 19 mg/dL (7-17); Carbon Dioxide 36 mmol/L (22-30); Chloride 105 mmol/L (98-107); Estimated CRCL calculation 141 ml/min; Estimated Glomerular Filt Rate > 60; Glucose 129 mg/dL (65-110); Potassium 3.6 mmol/L (3.4-5.0); Sodium 142 mmol/L (137-145)
[2022-09-18 05:41] LABS: Alveolar/Arterial O2 Gradient 47.9 mmHg; Base Excess ABG 3.8 mEq/l (+/-2.0); Carboxyhemoglobin 0.1 % THb (0-2.0); Fractional Inspired Oxygen 25 %; HCO3 ABG 28.1 mEq/l (22.0-26.0); Methemoglobin ABG 0.4 %THb (0-1.5); Oxygen Saturation ABG 96.4 % (95.0-100.0); Oxyhemoglobin 95.1 % THb (90.0-100.0); PCO2 ABG 41.3 mmHg (35.0-45.0); PO2 ABG 81.3 mmHg (80.0-100.0); PO2 FiO2 Ratio Arterial Blood 3.25 %; Reduced Hemoglobin 4.4 %THb (0-5.0); Total Hemoglobin 13.4 g/dL (12.0-18.0); pH ABG 7.451 (7.350-7.450)
[2022-09-18 05:44] LABS: Arterial Blood Gas PEEP 8 cmH2O; Arterial Blood Gas Vent Mode ASV; Device VENTILATOR; Modified Allen's Test Pass; Site Drawn RIGHT RADIAL
[2022-09-18] MEDS: metroNIDAZOLE 250 MG TABLET 500 MG FEED TUBE ×3 (05:54→21:00)
[2022-09-18] MEDS: CENTRAL LINE FLUSH 10 ML IV PUSH ×3 (05:55→20:17)
[2022-09-18] MEDS: levETIRAcetam 500MG/NACL 100ML 500 MG/100 ML BAG 400 MG IVPB ×2 (08:17→20:04)
[2022-09-18] MEDS: APIXABAN 5 MG TABLET PO ×2 (08:17→20:17)
[2022-09-18] MEDS: MINERAL OIL/WHITE PETROLATUM OINTMENT 1 APPLIC EACH EYE ×2 (08:17→20:17)
[2022-09-18] MEDS: PANTOPRAZOLE SODIUM IV 40 MG VIAL IV PUSH (08:17)
[2022-09-18] MEDS: CEFEPIME 2 GM/NS 50 ML 2 GM/50 ML BAG IVPB ×2 (08:18→20:04)
--- NOTE | 2022-09-18 09:07 | P.PNINT_ITS ---
Progress Note: A&P Assessment and Plan (1) Encephalopathy: Code(s): G93.40 - Encephalopathy, unspecified Status: Acute Assessment and Plan: Encephalopathy could be multifactorial -hypernatremia, hypotension, septic shock/infection, recent history of CVA -will continue to treat underlying issues -monitor closely -off all sedation -09/15 EEG: Abnormal record due to the presence of bihemispheric delta activity without evidence of any paroxysmal discharge.? These abnormalities are consistent with diffuse organic or metabolic encephalopathy without evidence of any electrical seizures. -Discussed EEG with Dr. Merino, who stated that the EEG was not favorable and that she may have had some hypoxic injury, she may remain in this state with likely no improvement (2) Acute respiratory failure: Qualifiers: Respiratory failure complication: unspecified whether with hypoxia or hypercapnia Qualified Code(s): J96.00 - Acute respiratory failure, unspecified whether with hypoxia or hypercapnia Code(s): J96.00 - Acute respiratory failure, unspecified whether with hypoxia or hypercapnia Status: Acute Assessment and Plan: Acute respiratory failure likely related to encephalopathy, possible aspiration, airway protection -intubated on 09/12/2022 -currently on ASV mode of ventilation, peep of 8, 30% FiO2 -ABGs reviewed, O2 to maintain O2 sats > 92% -chest x-ray this morning: Small left pleural effusion with minimal left basilar airspace opacity and stable right basilar airspace opacity, atelectasis versus pneumonia -continue bronchodilators -off all sedation since 09/15 -unable to wean from the ventilator due to her mental status, (3) Septic shock: Code(s): A41.9 - Sepsis, unspecified organism; R65.21 - Severe sepsis with septic shock Status: Acute Assessment and Plan: RESOLVED Septic shock likely related to pneumonia, UTI -patient was adequately resuscitated in the ER and ICU. -OFF all vasopressors -09/12: blood cultures - no growth 05/04 bottles -09/12: urine cultures -negative -09/12: MRSA screen is negative -09/12 sputum culture: Specimen is inbound call center representative of lower respiratory tract. -continue cefepime, Flagyl (09/12) for total of 7 days -vancomycin was discontinued on 09/12 -09/12/2022: Echocardiogram showed EF of 60-65%, LV chamber dimension is normal, grade 1 diastolic dysfunction, RV systolic function is reduced, trace mitral and trace tricuspid valve regurgitation. Small anterior pericardial effusion (4) Acute renal failure: Qualifiers: Acute renal failure type: unspecified Qualified Code(s): N17.9 - Acute kidney failure, unspecified Code(s): N17.9 - Acute kidney failure, unspecified Status: Acute Assessment and Plan: RESOLVED Acute renal failure likely related to dehydration, hypotension, septic shock, ATN, infection, KALEIGH-inhibitor and Celebrex use at home Celebrex -urine lytes with prerenal -CK levels were mildly elevated -09/12 renal ultrasound: Bladder decompressed by a Brandon catheter and therefore not well evaluated. Otherwise, unremarkable renal sonogram findings. No evidence of hydronephrosis. -patient received adequate amount of IV fluid -urine output is improving, creatinine has normalized (2.90 on admission) -monitor electrolytes, renal function and urine output (5) Acute hypernatremia: Code(s): E87.0 - Hyperosmolality and hypernatremia Status: Acute Assessment and Plan: RESOLVED Acute hypernatremia likely related to decreased p.o. intake, dehydration, free water los
--- NOTE | 2022-09-18 10:21 | PCFNICU ---
Addendum entered by Joelle Waldrop, CARYN, LDN 09/18/22 15:30: 1.2 g protein/kg = 144 g protein/day (not 1.4 g/kg) Original Note: ICU Rounding Note: Pt current nutrition is Vital 1.2 @ 55 ml/h providing 1452 kcal (~70% EER), 90 g protein, 982 ml free water. Flushes 30 ml q 4 hours. Tolerating well. Nutrition recommendation: Increase goal rate to 70 ml/h to meet energy needs. Add Prosource TF protein modular once daily to meet protein needs. Provides 1928 total kcal (91% EER), 135 g protein (94% est needs), 1249 ml free water. Last recorded weight is 120.7 kg. Bowel Motility: +1 BM 09/18/22 Labs Reviewed: Hgb 10.8, Hct 34.2, Alb 3.0, BUN 19, Cre 0.5 Meds Noted: Eliquis, cefepime, flagyl Skin: WNL Additional Notes: Vent day 5. No pressors. Map 86. No sedation. 25 kcal/kg(70%)=2110 kcal, 1.4 g pro/kg = 144 g protein/day. Increase intakes to ~100% estimated protein needs per [facility] recs for vent day 5. Following daily in ICU rounds. Will monitor weight, labs, tube feedings toleraance every Sunday and Sunday..
[2022-09-18 12:01] LABS: Glucose Point of Care 109 mg/dl (65-105)
--- NOTE | 2022-09-18 12:11 | PM.IMPN ---
Progress Note: A&P Assessment and Plan (1) Encephalopathy: Code(s): G93.40 - Encephalopathy, unspecified Status: Acute Assessment and Plan: Encephalopathy could be multifactorial -hypernatremia, hypotension, septic shock/infection, recent history of CVA -will continue to treat underlying issues -monitor closely -off all sedation -09/15 EEG: Abnormal record due to the presence of bihemispheric delta activity without evidence of any paroxysmal discharge.? These abnormalities are consistent with diffuse organic or metabolic encephalopathy without evidence of any electrical seizures. -Discussed EEG with Dr. Merino, who stated that the EEG was not favorable and that she may have had some hypoxic injury, she may remain in this state with likely no improvement (2) Acute respiratory failure: Qualifiers: Respiratory failure complication: unspecified whether with hypoxia or hypercapnia Qualified Code(s): J96.00 - Acute respiratory failure, unspecified whether with hypoxia or hypercapnia Code(s): J96.00 - Acute respiratory failure, unspecified whether with hypoxia or hypercapnia Status: Acute Assessment and Plan: Acute respiratory failure likely related to encephalopathy, possible aspiration, airway protection -intubated on 09/12/2022 -currently on ASV mode of ventilation, peep of 8, 30% FiO2 -ABGs reviewed, O2 to maintain O2 sats > 92% -chest x-ray this morning: Small left pleural effusion with minimal left basilar airspace opacity and stable right basilar airspace opacity, atelectasis versus pneumonia -continue bronchodilators -off all sedation since 09/15 -unable to wean from the ventilator due to her mental status (3) Septic shock: Code(s): A41.9 - Sepsis, unspecified organism; R65.21 - Severe sepsis with septic shock Status: Acute Assessment and Plan: RESOLVED Septic shock likely related to pneumonia, UTI -patient was adequately resuscitated in the ER and ICU. -OFF all vasopressors -09/12: blood cultures - no growth 05/04 bottles -09/12: urine cultures -negative -09/12: MRSA screen is negative -09/12 sputum culture: Specimen is policy services representative of lower respiratory tract. -continue cefepime, Flagyl (09/12) for total of 7 days -vancomycin was discontinued on 09/12 -09/12/2022: Echocardiogram showed EF of 60-65%, LV chamber dimension is normal, grade 1 diastolic dysfunction, RV systolic function is reduced, trace mitral and trace tricuspid valve regurgitation. Small anterior pericardial effusion (4) Acute renal failure: Qualifiers: Acute renal failure type: unspecified Qualified Code(s): N17.9 - Acute kidney failure, unspecified Code(s): N17.9 - Acute kidney failure, unspecified Status: Acute Assessment and Plan: RESOLVED Acute renal failure likely related to dehydration, hypotension, septic shock, ATN, infection, KALEIGH-inhibitor and Celebrex use at home Celebrex -urine lytes with prerenal -CK levels were mildly elevated -09/12 renal ultrasound: Bladder decompressed by a Brandon catheter and therefore not well evaluated. Otherwise, unremarkable renal sonogram findings. No evidence of hydronephrosis. -patient received adequate amount of IV fluid -urine output is improving, creatinine has normalized (2.90 on admission) -monitor electrolytes, renal function and urine output (5) Acute hypernatremia: Code(s): E87.0 - Hyperosmolality and hypernatremia Status: Acute Assessment and Plan: RESOLVED Acute hypernatremia likely related to decreased p.o. intake, dehydration, free water loss, insensible water loss -sodium 165 on admission 09/12 -patient received adequate IV fluids -initially was on normal saline maintenance fluids which was switched to D5W per nephrology to treat her hyponatremia -09/15: Sodium levels 144 this morning, discontinue D5 water, nephrology was agreeable -09/16: Sodium levels 142 this morning -sodium levels r
[2022-09-18 16:51] LABS: Glucose Point of Care 162 mg/dl (65-105)
[2022-09-18] MEDS: DORNASE ALFA INH SOLN 1 MG/ML 2.5 ML AMP 2.5 MG INHALATION (21:12)
[2022-09-19] VITALS (28 sets, daily range): BP systolic 118–158; BP diastolic 71–105; PULSE 78–106; RESP 15–24; TEMP 36.9–37.6; O2SAT 93–100; BMI 41.6
[2022-09-19 00:02] LABS: Glucose Point of Care 123 mg/dl (65-105)
[2022-09-19] MEDS: IPRATROPIUM BR 0.02% INH SOLN 0.5 MG/2.5 ML VIAL INHALATION ×4 (02:43→20:19)
[2022-09-19] MEDS: LEVALBUTEROL NEB 1.25 MG/3 ML 0.63 MG INHALATION ×4 (02:44→20:18)
[2022-09-19 04:19] LABS: Estimated CRCL calculation 223 ml/min; Estimated Glomerular Filt Rate > 60
[2022-09-19 05:12] LABS: Hematocrit 34.7 % (37.0-47.0); Hemoglobin 11.2 g/dL (12.0-15.0); Mean Corpuscular HGB Conc 32.3 g/dl (32-36); Mean Corpuscular Hemoglobin 32.3 pg (26-34); Mean Platelet Volume 12.2 fl (7.4-10.4); Platelet Count Result 211 k/mm3 (150-375); Red Blood Count 3.47 M/mm3 (4.2-5.4); Red Cell Distribution Width 14.3 % (11.5-14.5); White Blood Count 8.3 K/mm3 (4.5-10.0)
[2022-09-19 05:18] LABS: Alveolar/Arterial O2 Gradient 92.3 mmHg; Base Excess ABG 5.8 mEq/l (+/-2.0); Carboxyhemoglobin 0.2 % THb (0-2.0); Fractional Inspired Oxygen 30 %; HCO3 ABG 29.1 mEq/l (22.0-26.0); Methemoglobin ABG 0.4 %THb (0-1.5); Oxygen Saturation ABG 96.4 % (95.0-100.0); PCO2 ABG 37.8 mmHg (35.0-45.0); PO2 ABG 77.2 mmHg (80.0-100.0); PO2 FiO2 Ratio Arterial Blood 2.57 %; Reduced Hemoglobin 4.4 %THb (0-5.0)
[2022-09-19 05:20] LABS: Arterial Blood Gas PEEP 5 cmH2O; Arterial Blood Gas Tidal Volume 450 ml; Arterial Blood Gas Vent Mode CMV; Arterial Blood Gas Ventilator rate 20 /MIN; Device VENTILATOR; Modified Allen's Test Pass; Site Drawn RIGHT RADIAL; pH ABG 7.504 (7.350-7.450)
[2022-09-19 05:22] LABS: Anion Gap 2 mmol/L (8-16); Blood Urea Nitrogen 24 mg/dL (7-17); Carbon Dioxide 34 mmol/L (22-30); Chloride 103 mmol/L (98-107); Estimated CRCL calculation 175 ml/min; Estimated Glomerular Filt Rate > 60; Glucose 139 mg/dL (65-110); Magnesium 2.2 mg/dL (1.6-2.3); Phosphorus 2.5 mg/dL (2.5-4.5); Potassium 3.7 mmol/L (3.4-5.0); Sodium 139 mmol/L (137-145)
[2022-09-19] MEDS: CENTRAL LINE FLUSH 10 ML IV PUSH ×3 (06:13→21:04)
[2022-09-19] MEDS: DORNASE ALFA INH SOLN 1 MG/ML 2.5 ML AMP 2.5 MG INHALATION ×2 (08:07→20:19)
[2022-09-19] MEDS: MINERAL OIL/WHITE PETROLATUM OINTMENT 1 APPLIC EACH EYE ×2 (08:38→21:04)
[2022-09-19] MEDS: APIXABAN 5 MG TABLET PO ×2 (08:38→21:03)
[2022-09-19] MEDS: PANTOPRAZOLE SODIUM IV 40 MG VIAL IV PUSH (08:38)
[2022-09-19] MEDS: levETIRAcetam 500MG/NACL 100ML 500 MG/100 ML BAG 400 MG IVPB ×2 (08:38→21:03)
--- NOTE | 2022-09-19 09:16 | WPDINTPN ---
Progress Note: A&P Assessment and Plan (1) Encephalopathy: Code(s): G93.40 - Encephalopathy, unspecified Status: Acute Assessment and Plan: Encephalopathy likely multifactorial -hypernatremia, hypotension, septic shock/infection, recent history of CVA, ? Hypoxia -will continue to treat underlying issues -off all sedation -09/15 EEG: Abnormal record due to the presence of bihemispheric delta activity without evidence of any paroxysmal discharge.? These abnormalities are consistent with diffuse organic or metabolic encephalopathy without evidence of any electrical seizures. -head CT 09/16 IMPRESSION:? 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 Merino, who stated that the EEG was not favorable and that she may have had some hypoxic injury -unable to obtain MRI on a mechanically ventilated patient and Wally although this would likely not change treatment or prognosis at this time (2) Acute respiratory failure: Qualifiers: Respiratory failure complication: unspecified whether with hypoxia or hypercapnia Qualified Code(s): J96.00 - Acute respiratory failure, unspecified whether with hypoxia or hypercapnia Code(s): J96.00 - Acute respiratory failure, unspecified whether with hypoxia or hypercapnia Status: Acute Assessment and Plan: Acute respiratory failure likely related to encephalopathy, possible aspiration, airway protection -intubated on 09/12/2022 -currently on ASV mode of ventilation, peep of 8, 30% FiO2 -ABGs reviewed, O2 to maintain O2 sats > 92% -chest x-ray this morning: Small left pleural effusion with minimal left basilar airspace opacity and stable right basilar airspace opacity, atelectasis versus pneumonia -continue bronchodilators -off all sedation since 09/15 -unable to wean from the ventilator due to her mental status. Patient placed on PSV 10/5 continue as tolerated -she will likely need tracheostomy if mental status does not improve of weaning from ventilator (3) Septic shock: Code(s): A41.9 - Sepsis, unspecified organism; R65.21 - Severe sepsis with septic shock Status: Acute Assessment and Plan: RESOLVED Septic shock likely related to pneumonia, UTI -patient was adequately resuscitated in the ER and ICU. -OFF all vasopressors -09/12: blood cultures - no growth 05/04 bottles -09/12: urine cultures -negative -09/12: MRSA screen is negative -09/12 sputum culture: Specimen is business services sales representative of lower respiratory tract. -continue cefepime, Flagyl (09/12) for total of 7 days -vancomycin was discontinued on 09/12 -09/12/2022: Echocardiogram showed EF of 60-65%, LV chamber dimension is normal, grade 1 diastolic dysfunction, RV systolic function is reduced, trace mitral and trace tricuspid valve regurgitation. Small anterior pericardial effusion (4) Acute renal failure: Qualifiers: Acute renal failure type: unspecified Qualified Code(s): N17.9 - Acute kidney failure, unspecified Code(s): N17.9 - Acute kidney failure, unspecified Status: Acute Assessment and Plan: RESOLVED Acute renal failure likely related to dehydration, hypotension, septic shock, ATN, infection, KALEIGH-inhibitor and Celebrex use at home Celebrex -urine lytes with prerenal -CK levels were mildly elevated -09/12 renal ultrasound: Bladder decompressed by a Brandon catheter and therefore not well evaluated. Otherwise, unremarkable renal sonogram findings. No evidence of hydronephrosis. -patient received adequate amount of IV fluid -urine output is improving, creatinine has normalized (2.90 on admission) -monitor electrolytes, renal function and urine output (5) Acute hypernatremia: Code(s): E87.0 - Hyperosmolality and hypernatrem
--- NOTE | 2022-09-19 10:57 | PCNFU ---
Nutrition Follow-Up Complete: Inadequate Oral Intake as related to mechanical vent as evidenced by NPO. Goal: Meet estimated nutritional needs Patient is progressing towards goal. We will continue current goal. Pt current nutrition is Vital AF 1.2 at 70 ml/hr. Nutrition recommendation: Decreased rate to 60 ml/hr Last recorded weight is 117 kg. up from 105.4 gm on admit. Bowel Motility:+BM reported 09/18 Labs Reviewed:Glu 139, BUN 24, Cr 0.4 Meds Noted:Flagyl, Cefepime Skin: WNL Additional Notes: Patient remains on mechanical vent and tube feedings of Vital AF 1.2 at 70 ml/hr. Spoke with Adolescent Counselor, recommend changing rate to 60 ml/hr. Tube feedings at 60 ml/hr providing 1584 kcals/99 gms protein/1071 ml water. plus 1 Prosource daily. Tube feedings plus protein modular at 15 kcal/kg meeting 94% needs and 100% protein needs. Flush 30 ml q 4 hours. Agree with diet orders. Will monitor weight, labs, tube feedings tolerance every Sunday and Sunday.
[2022-09-19 11:46] LABS: Glucose Point of Care 127 mg/dl (65-105)
[2022-09-19 13:37] LABS: Chloride Rand Ur <20 mmol/L (32-290); Creatinine Random Urine 186 mg/dL (20-275)
--- NOTE | 2022-09-19 15:52 | PC.NURSE ---
pt's here, discussed how she is withdrawing from pain in exts in which she was not doing a week ago. Discussed with him that Dr. Carlson is wanting to speak to him, stated to call or come in between 7a-3p so they can talk, he stated he understood and plans to speak with the doctor tomorrow via phone or return here
--- NOTE | 2022-09-19 16:27 | PC.NURSE ---
Pt's left at this time, prior to leaving, stated that wants to talk with him tommorow so he needs to come here or at the very least to call up here, he stated he understands and will do that
--- NOTE | 2022-09-19 17:22 | PM.IMPN ---
Progress Note: A&P Assessment and Plan (1) Encephalopathy: Code(s): G93.40 - Encephalopathy, unspecified Status: Acute Assessment and Plan: Encephalopathy likely multifactorial -hypernatremia, hypotension, septic shock/infection, recent history of CVA, ? Hypoxia -will continue to treat underlying issues -off all sedation -09/15 EEG: Abnormal record due to the presence of bihemispheric delta activity without evidence of any paroxysmal discharge.? These abnormalities are consistent with diffuse organic or metabolic encephalopathy without evidence of any electrical seizures. -head CT 09/16 IMPRESSION:? Recent large right middle cerebral artery territory cerebrovascular infarct There is effacement of the cortical sulci bilaterally consistent with brain swelling Interval diminished attenuation of the cerebral white matter consistent with hypoxic injury -EEG was not favorable and that she may have had some hypoxic injury -unable to obtain MRI on a mechanically ventilated patient and Wally although this would likely not change treatment or prognosis at this time (2) Acute respiratory failure: Qualifiers: Respiratory failure complication: unspecified whether with hypoxia or hypercapnia Qualified Code(s): J96.00 - Acute respiratory failure, unspecified whether with hypoxia or hypercapnia Code(s): J96.00 - Acute respiratory failure, unspecified whether with hypoxia or hypercapnia Status: Acute Assessment and Plan: Acute respiratory failure likely related to encephalopathy, possible aspiration, airway protection -intubated on 09/12/2022 -currently on ASV mode of ventilation, peep of 8, 30% FiO2 -ABGs reviewed, O2 to maintain O2 sats > 92% -chest x-ray this morning: Small left pleural effusion with minimal left basilar airspace opacity and stable right basilar airspace opacity, atelectasis versus pneumonia -continue bronchodilators -off all sedation since 09/15 -unable to wean from the ventilator due to her mental status. Patient placed on PSV 10/5 continue as tolerated -she will likely need tracheostomy if mental status does not improve of weaning from ventilator (3) Septic shock: Code(s): A41.9 - Sepsis, unspecified organism; R65.21 - Severe sepsis with septic shock Status: Acute Assessment and Plan: RESOLVED Septic shock likely related to pneumonia, UTI -patient was adequately resuscitated in the ER and ICU. -OFF all vasopressors -09/12: blood cultures - no growth 05/04 bottles -09/12: urine cultures -negative -09/12: MRSA screen is negative -09/12 sputum culture: Specimen is operations support representative of lower respiratory tract. -continue cefepime, Flagyl (09/12) for total of 7 days -vancomycin was discontinued on 09/12 -09/12/2022: Echocardiogram showed EF of 60-65%, LV chamber dimension is normal, grade 1 diastolic dysfunction, RV systolic function is reduced, trace mitral and trace tricuspid valve regurgitation. Small anterior pericardial effusion (4) Acute renal failure: Qualifiers: Acute renal failure type: unspecified Qualified Code(s): N17.9 - Acute kidney failure, unspecified Code(s): N17.9 - Acute kidney failure, unspecified Status: Acute Assessment and Plan: RESOLVED Acute renal failure likely related to dehydration, hypotension, septic shock, ATN, infection, KALEIGH-inhibitor and Celebrex use at home Celebrex -urine lytes with prerenal -CK levels were mildly elevated -09/12 renal ultrasound: Bladder decompressed by a Brandon catheter and therefore not well evaluated. Otherwise, unremarkable renal sonogram findings. No evidence of hydronephrosis. -patient received adequate amount of IV fluid -urine output is improving, creatinine has normalized (2.90 on admission) -monitor electrolytes, renal function and urine output (5) Acute hypernatremia: Code(s): E87.0 - Hyperosmolality and hypernatremia Status: Acute Assessment and Plan:
[2022-09-19 17:40] LABS: Glucose Point of Care 113 mg/dl (65-105)
[2022-09-20] VITALS (47 sets, daily range): BP systolic 121–170; BP diastolic 65–92; PULSE 67–134; RESP 15–24; TEMP 36.7–37.6; O2SAT 93–100
[2022-09-20 00:25] LABS: Glucose Point of Care 106 mg/dl (65-105)
[2022-09-20] MEDS: LEVALBUTEROL NEB 1.25 MG/3 ML 0.63 MG INHALATION ×4 (02:07→20:15)
[2022-09-20] MEDS: IPRATROPIUM BR 0.02% INH SOLN 0.5 MG/2.5 ML VIAL INHALATION ×4 (02:07→20:15)
[2022-09-20 05:49] LABS: Alveolar/Arterial O2 Gradient 103.6 mmHg; Base Excess ABG 3.5 mEq/l (+/-2.0); Carboxyhemoglobin 0.3 % THb (0-2.0); Fractional Inspired Oxygen 30 %; HCO3 ABG 27.3 mEq/l (22.0-26.0); Methemoglobin ABG 0.3 %THb (0-1.5); Oxygen Content ABG 17.4 %vol (16.0-22.0); Oxygen Saturation ABG 93.9 % (95.0-100.0); Oxyhemoglobin 92.3 % THb (90.0-100.0); PCO2 ABG 38.6 mmHg (35.0-45.0); PO2 ABG 64.9 mmHg (80.0-100.0); PO2 FiO2 Ratio Arterial Blood 2.16 %; Reduced Hemoglobin 7.1 %THb (0-5.0); Total Hemoglobin 13.4 g/dL (12.0-18.0); pH ABG 7.467 (7.350-7.450)
[2022-09-20 05:53] LABS: Modified Allen's Test Pass; Site Drawn RIGHT RADIAL
[2022-09-20 05:54] LABS: Arterial Blood Gas PEEP 5 cmH2O; Arterial Blood Gas Tidal Volume 400 ml; Arterial Blood Gas Vent Mode CMV; Arterial Blood Gas Ventilator rate 18 /MIN; Device VENTILATOR
[2022-09-20 07:01] LABS: Hematocrit 36.3 % (37.0-47.0); Hemoglobin 11.6 g/dL (12.0-15.0); Mean Corpuscular Volume 100.3 fl (80-100); Platelet Count Result 250 k/mm3 (150-375); Red Blood Count 3.62 M/mm3 (4.2-5.4); Red Cell Distribution Width 14.6 % (11.5-14.5); White Blood Count 8.4 K/mm3 (4.5-10.0)
[2022-09-20 07:05] LABS: Glucose Point of Care 119 mg/dl (65-105)
[2022-09-20 07:18] LABS: Alanine Aminotransferase 153 U/L (6-35); Albumin Level 3.3 g/dL (3.5-5.1); Alkaline Phosphatase 78 U/L (38-126); Anion Gap 3 mmol/L (8-16); Aspartate Amino Transferase 86 U/L (14-36); Bilirubin,Total 0.8 mg/dL (0.2-1.3); Blood Urea Nitrogen 21 mg/dL (7-17); Calcium 8.8 mg/dL (8.4-10.2); Carbon Dioxide 34 mmol/L (22-30); Chloride 101 mmol/L (98-107); Estimated CRCL calculation 170 ml/min; Estimated Glomerular Filt Rate > 60; Glucose 117 mg/dL (65-110); Magnesium 2.3 mg/dL (1.6-2.3); Potassium 3.7 mmol/L (3.4-5.0); Sodium 138 mmol/L (137-145)
[2022-09-20] MEDS: DORNASE ALFA INH SOLN 1 MG/ML 2.5 ML AMP 2.5 MG INHALATION ×2 (07:42→20:15)
--- NOTE | 2022-09-20 08:09 | WPDINTPN ---
Progress Note: A&P Assessment and Plan (1) Encephalopathy: Code(s): G93.40 - Encephalopathy, unspecified Status: Acute Assessment and Plan: Encephalopathy likely multifactorial -hypernatremia, hypotension, septic shock/infection, recent history of CVA, ? Hypoxia -off all sedation for many days -09/15 EEG: Abnormal record due to the presence of bihemispheric delta activity without evidence of any paroxysmal discharge.? These abnormalities are consistent with diffuse organic or metabolic encephalopathy without evidence of any electrical seizures. -head CT 09/16 IMPRESSION:? 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 Merino, who stated that the EEG was not favorable and that she may have had some hypoxic injury -unable to obtain MRI on a mechanically ventilated patient and Wally although this would likely not change treatment or prognosis at this time -patient appears to be having myoclonic jerking. Repeat EEG to rule out any seizures. Continue Keppra (2) Acute respiratory failure: Qualifiers: Respiratory failure complication: unspecified whether with hypoxia or hypercapnia Qualified Code(s): J96.00 - Acute respiratory failure, unspecified whether with hypoxia or hypercapnia Code(s): J96.00 - Acute respiratory failure, unspecified whether with hypoxia or hypercapnia Status: Acute Assessment and Plan: Acute respiratory failure likely related to encephalopathy, possible aspiration, airway protection -intubated on 09/12/2022 -currently on ASV mode of ventilation, peep of 8, 30% FiO2 -ABGs reviewed, O2 to maintain O2 sats > 92% -chest x-ray this morning: Small left pleural effusion with minimal left basilar airspace opacity and stable right basilar airspace opacity, atelectasis versus pneumonia -continue bronchodilators -off all sedation since 09/15 -unable to wean from the ventilator due to her mental status. Patient tolerated PSV 10/5 yesterday. Will try again and continue as tolerated -she will likely need tracheostomy if mental status does not improve of weaning from ventilator (3) Septic shock: Code(s): A41.9 - Sepsis, unspecified organism; R65.21 - Severe sepsis with septic shock Status: Acute Assessment and Plan: RESOLVED Septic shock likely related to pneumonia, UTI -patient was adequately resuscitated in the ER and ICU. -OFF all vasopressors -09/12: blood cultures - no growth 05/04 bottles -09/12: urine cultures -negative -09/12: MRSA screen is negative -09/12 sputum culture: Specimen is assisted sales representative of lower respiratory tract. -continue cefepime, Flagyl (09/12) for total of 7 days -vancomycin was discontinued on 09/12 -09/12/2022: Echocardiogram showed EF of 60-65%, LV chamber dimension is normal, grade 1 diastolic dysfunction, RV systolic function is reduced, trace mitral and trace tricuspid valve regurgitation. Small anterior pericardial effusion (4) Acute renal failure: Qualifiers: Acute renal failure type: unspecified Qualified Code(s): N17.9 - Acute kidney failure, unspecified Code(s): N17.9 - Acute kidney failure, unspecified Status: Acute Assessment and Plan: RESOLVED Acute renal failure likely related to dehydration, hypotension, septic shock, ATN, infection, KALEIGH-inhibitor and Celebrex use at home Celebrex -urine lytes with prerenal -CK levels were mildly elevated -09/12 renal ultrasound: Bladder decompressed by a Brandon catheter and therefore not well evaluated. Otherwise, unremarkable renal sonogram findings. No evidence of hydronephrosis. -patient received adequate amount of IV fluid -urine output is improving, creatinine has normalized (2.90 on admission) -monitor electrolytes, renal fu
[2022-09-20] MEDS: MINERAL OIL/WHITE PETROLATUM OINTMENT 1 APPLIC EACH EYE ×2 (08:53→20:14)
[2022-09-20] MEDS: CENTRAL LINE FLUSH 10 ML IV PUSH ×4 (08:53→20:14)
[2022-09-20] MEDS: POTASSIUM CHLORIDE 20 MEQ PACKET (FOR LIQUID) 40 MEQ FEED TUBE (08:53)
[2022-09-20] MEDS: FUROSEMIDE INJ 40 MG/4 ML VIAL 20 MG IV PUSH (08:53)
[2022-09-20] MEDS: PANTOPRAZOLE SODIUM IV 40 MG VIAL IV PUSH (08:54)
[2022-09-20] MEDS: APIXABAN 5 MG TABLET PO ×2 (08:54→20:13)
[2022-09-20] MEDS: levETIRAcetam 500MG/NACL 100ML 500 MG/100 ML BAG 400 MG IVPB ×2 (08:54→20:13)
[2022-09-20] MEDS: MORPHINE SULFATE (*CRX) 2 MG/ML INJ IV PUSH (09:53)
--- NOTE | 2022-09-20 10:48 | PCFNICU ---
ICU Rounding Note: Pt current nutrition is Vital AF 1.2 at 60 ml/hr. Last recorded weight is 115.6 kg. Bowel Motility:+BM reported 09/18 Labs Reviewed:Cr 0.4,BUN 21, Alb 3.3,Hct 36.3,Hgb 11.6 Meds Noted:Flagyl, Elena, Sade Skin: WNL Additional Notes:Patient remains on mechanical vent and tube feedings of Vital AF 1.2 at 60 ml/hr and tolerating per nursing. Protein Modular remains of Prosource once daily. Total nutrition being provided 1664 kcals/118 gms protein/1071 ml water. Flush 30 ml q 4 hours. Following daily in ICU rounds. Will monitor weight, labs, tube feedings tolerance every Sunday and Sunday.
[2022-09-20] MEDS: METOPROLOL TARTRATE INJ 5 MG/5 ML VIAL IV PUSH (12:38)
[2022-09-20 13:10] LABS: Glucose Point of Care 160 mg/dl (65-105)
[2022-09-20] MEDS: ACETAMINOPHEN 325 MG TABLET 650 MG FEED TUBE (17:29)
[2022-09-20 17:55] LABS: Glucose Point of Care 123 mg/dl (65-105)
--- NOTE | 2022-09-20 19:26 | PM.IMPN ---
Progress Note: A&P Assessment and Plan (1) Encephalopathy: Code(s): G93.40 - Encephalopathy, unspecified Status: Acute Assessment and Plan: Encephalopathy likely multifactorial from hypernatremia, hypotension, septic shock/infection, recent history of CVA, brain swelling noted by CT and probably hypoxia. She has been off sedation since 09/15. -Head CT 09/12: evolving Rt MCA CVA. -EEG 09/15: Abnormal record due to the presence of bihemispheric delta activity without evidence of any paroxysmal discharge.? These abnormalities are consistent with diffuse organic or metabolic encephalopathy without evidence of any electrical seizures -Repeat Head CT 09/16: Effacement of the cortical suldi bilaterally consistent with brain swelling. -Neurology stated that the EEG was not favorable and that she may have had some hypoxic injury -Unable to obtain MRI -patient appears to be having myoclonic jerking. Repeat EEG to rule out any seizures. Continue Keppra. Steroids? (2) Acute respiratory failure: Qualifiers: Respiratory failure complication: unspecified whether with hypoxia or hypercapnia Qualified Code(s): J96.00 - Acute respiratory failure, unspecified whether with hypoxia or hypercapnia Code(s): J96.00 - Acute respiratory failure, unspecified whether with hypoxia or hypercapnia Status: Acute Assessment and Plan: Acute respiratory failure likely related to encephalopathy from possible aspiration and intubated on 09/12. Off sedation since 09/15. CXR today showing mild bibasilar edema vs atelectasis. ABG 7.47/39/65. Unable to wean from the ventilator due to her mental status. She will likely need tracheostomy if mental status does not improve. Vent management per commercial sales representative. (3) Septic shock: Code(s): A41.9 - Sepsis, unspecified organism; R65.21 - Severe sepsis with septic shock Status: Acute Assessment and Plan: Septic shock likely related to pneumonia, UTI. Patient was adequately fluid resuscitated in the ER and ICU. She is -OFF all vasopressors -09/12/2022: Echo EF of 60-65%, LV chamber dimension is normal, grade 1 diastolic dysfunction, RV systolic function is reduced, trace mitral and trace tricuspid valve regurgitation. Small anterior pericardial effusion -09/12: blood cultures - no growth / bottles -09/12: urine cultures -negative -09/12: MRSA screen is negative -09/12 sputum culture: negative She completed a 7 day course of appropriate abx. Resolved (4) Acute renal failure: Qualifiers: Acute renal failure type: unspecified Qualified Code(s): N17.9 - Acute kidney failure, unspecified Code(s): N17.9 - Acute kidney failure, unspecified Status: Acute Assessment and Plan: Acute renal failure likely related to dehydration, hypotension, septic shock, ATN, infection, KALEIGH-inhibitor and Celebrex use at home. Cr 2.9 on admission. Urine lytes with prerenal. -CK levels were mildly elevated -09/12 renal ultrasound: Bladder decompressed by a Brandon catheter and therefore not well evaluated. Otherwise, unremarkable renal sonogram findings. No evidence of hydronephrosis. -patient received adequate amount of IV fluid -urine output is improving, creatinine has normalized -monitor electrolytes, renal function and urine output (5) Acute hypernatremia: Code(s): E87.0 - Hyperosmolality and hypernatremia Status: Acute Assessment and Plan: Acute hypernatremia likely related to decreased p.o. intake, dehydration, free water loss, insensible water loss -sodium 165 on admission 09/12 -patient received adequate IV fluids -initially was on normal saline maintenance fluids which was switched to D5W per nephrology to treat her hyponatremia -09/15: Sodium levels 144 this morning, discontinue D5 water, nephrology was agreeable -sodium levels remained stable and normal --appreciate Nephrology evaluation and recommendations (6) Depression with
[2022-09-20 23:57] LABS: Glucose Point of Care 129 mg/dl (65-105)
[2022-09-21] VITALS (111 sets, daily range): BP systolic 112–159; BP diastolic 69–115; PULSE 64–117; RESP 11–28; TEMP 36.8–37.6; O2SAT 94–100
[2022-09-21] MEDS: LEVALBUTEROL NEB 1.25 MG/3 ML 0.63 MG INHALATION ×4 (02:12→20:15)
[2022-09-21] MEDS: IPRATROPIUM BR 0.02% INH SOLN 0.5 MG/2.5 ML VIAL INHALATION ×4 (02:12→20:15)
[2022-09-21] MEDS: CENTRAL LINE FLUSH 10 ML IV PUSH ×4 (04:28→21:34)
[2022-09-21 05:19] LABS: Alveolar/Arterial O2 Gradient 74.7 mmHg; Base Excess ABG 6.8 mEq/l (+/-2.0); Carboxyhemoglobin 0.3 % THb (0-2.0); Fractional Inspired Oxygen 30 %; HCO3 ABG 31.4 mEq/l (22.0-26.0); Methemoglobin ABG 0.4 %THb (0-1.5); Oxygen Saturation ABG 97.1 % (95.0-100.0); Oxyhemoglobin 95.7 % THb (90.0-100.0); PCO2 ABG 43.9 mmHg (35.0-45.0); PO2 ABG 87.6 mmHg (80.0-100.0); PO2 FiO2 Ratio Arterial Blood 2.92 %; Reduced Hemoglobin 3.6 %THb (0-5.0); Total Hemoglobin 17.1 g/dL (12.0-18.0); pH ABG 7.472 (7.350-7.450)
[2022-09-21 05:20] LABS: Arterial Blood Gas Vent Mode CMV; Arterial Blood Gas Ventilator rate 18 /MIN; Device VENTILATOR; Modified Allen's Test Pass; Site Drawn LEFT RADIAL
[2022-09-21 05:21] LABS: Arterial Blood Gas PEEP 5 cmH2O; Arterial Blood Gas Tidal Volume 400 ml
[2022-09-21 06:11] LABS: Hematocrit 36.4 % (37.0-47.0); Hemoglobin 11.5 g/dL (12.0-15.0); Mean Corpuscular HGB Conc 31.6 g/dl (32-36); Mean Corpuscular Hemoglobin 31.9 pg (26-34); Mean Corpuscular Volume 101.1 fl (80-100); Platelet Count Result 274 k/mm3 (150-375); White Blood Count 8.6 K/mm3 (4.5-10.0)
[2022-09-21 06:21] LABS: Alanine Aminotransferase 149 U/L (6-35); Albumin Level 3.5 g/dL (3.5-5.1); Alkaline Phosphatase 87 U/L (38-126); Anion Gap 3 mmol/L (8-16); Aspartate Amino Transferase 82 U/L (14-36); Bilirubin,Total 0.7 mg/dL (0.2-1.3); Blood Urea Nitrogen 26 mg/dL (7-17); Calcium 9.3 mg/dL (8.4-10.2); Carbon Dioxide 34 mmol/L (22-30); Chloride 100 mmol/L (98-107); Estimated CRCL calculation 169 ml/min; Estimated Glomerular Filt Rate > 60; Glucose 145 mg/dL (65-110); Magnesium 2.3 mg/dL (1.6-2.3); Potassium 3.4 mmol/L (3.4-5.0); Sodium 137 mmol/L (137-145)
[2022-09-21] MEDS: DORNASE ALFA INH SOLN 1 MG/ML 2.5 ML AMP 2.5 MG INHALATION ×2 (07:55→20:15)
--- NOTE | 2022-09-21 08:28 | WPDINTPN ---
Progress Note: A&P Assessment and Plan (1) Encephalopathy: Code(s): G93.40 - Encephalopathy, unspecified Status: Acute Assessment and Plan: Encephalopathy likely multifactorial -hypernatremia, hypotension, septic shock/infection, recent history of CVA, ? Hypoxia -off all sedation for many days -09/15 EEG: Abnormal record due to the presence of bihemispheric delta activity without evidence of any paroxysmal discharge.? These abnormalities are consistent with diffuse organic or metabolic encephalopathy without evidence of any electrical seizures. -head CT 09/16 IMPRESSION:? 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 Merino, who stated that the EEG was not favorable and that she may have had some hypoxic injury -unable to obtain MRI on a mechanically ventilated patient and Wally although this would likely not change treatment or prognosis at this time 09/20 patient appears to be having myoclonic jerking. Repeat EEG to rule out any seizures was performed. Report pending. Continue Sade (2) Acute respiratory failure: Qualifiers: Respiratory failure complication: unspecified whether with hypoxia or hypercapnia Qualified Code(s): J96.00 - Acute respiratory failure, unspecified whether with hypoxia or hypercapnia Code(s): J96.00 - Acute respiratory failure, unspecified whether with hypoxia or hypercapnia Status: Acute Assessment and Plan: Acute respiratory failure likely related to encephalopathy, possible aspiration, airway protection -intubated on 09/12/2022 -currently on ASV mode of ventilation, peep of 8, 30% FiO2 -ABGs reviewed, O2 to maintain O2 sats > 92% -chest x-ray this morning: Small left pleural effusion with minimal left basilar airspace opacity and stable right basilar airspace opacity, atelectasis versus pneumonia -continue bronchodilators -off all sedation since 09/15 -unable to wean from the ventilator due to her mental status. Patient tolerates PSV 10/5 but will not be able to protect her airway. -continue pressure support as tolerated -she will need tracheostomy as we are in 2nd week of her the patient and she has not shown any painful improvement in her neurological status that will allow her to be weaned from ventilator in short term. I have discussed this with patient's who is agreeable to proceed with trach and PEG if needed. (3) Septic shock: Code(s): A41.9 - Sepsis, unspecified organism; R65.21 - Severe sepsis with septic shock Status: Acute Assessment and Plan: RESOLVED Septic shock likely related to pneumonia, UTI -patient was adequately resuscitated in the ER and ICU. -OFF all vasopressors -09/12: blood cultures - no growth 05/04 bottles -09/12: urine cultures -negative -09/12: MRSA screen is negative -09/12 sputum culture: Specimen is service representative of lower respiratory tract. -continue cefepime, Flagyl (09/12) for total of 7 days -vancomycin was discontinued on 09/12 -09/12/2022: Echocardiogram showed EF of 60-65%, LV chamber dimension is normal, grade 1 diastolic dysfunction, RV systolic function is reduced, trace mitral and trace tricuspid valve regurgitation. Small anterior pericardial effusion (4) Acute renal failure: Qualifiers: Acute renal failure type: unspecified Qualified Code(s): N17.9 - Acute kidney failure, unspecified Code(s): N17.9 - Acute kidney failure, unspecified Status: Acute Assessment and Plan: RESOLVED Acute renal failure likely related to dehydration, hypotension, septic shock, ATN, infection, KALEIGH-inhibitor and Celebrex use at home Celebrex -urine lytes with prerenal -CK levels were mildly elevated -09/12 renal ultrasound: Bladder decompressed by a F
[2022-09-21] MEDS: POTASSIUM CHLORIDE 20 MEQ PACKET (FOR LIQUID) 40 MEQ FEED TUBE (09:16)
[2022-09-21] MEDS: levETIRAcetam 500MG/NACL 100ML 500 MG/100 ML BAG 400 MG IVPB ×2 (09:17→21:33)
[2022-09-21] MEDS: FUROSEMIDE INJ 40 MG/4 ML VIAL 20 MG IV PUSH (09:17)
[2022-09-21] MEDS: MINERAL OIL/WHITE PETROLATUM OINTMENT 1 APPLIC EACH EYE ×2 (09:18→21:34)
[2022-09-21] MEDS: PANTOPRAZOLE SODIUM IV 40 MG VIAL IV PUSH (09:18)
[2022-09-21] MEDS: APIXABAN 5 MG TABLET PO (09:18)
--- NOTE | 2022-09-21 09:31 | WPDNEUROLOGY ---
Neurology EEG Report General Information Date of Study: 09/20/22 TEST Routine EEG DIAGNOSIS Unresponsiveness CONDITION OF RECORDING Comatose EEG NUMBER [id number] CLINICAL HISTORY Patient currently admitted to the ICU, intubated, and has been off sedation for several days. Not following commands. This is repeat routine EEG -- 1st one done on 09/15/22. Patient is now having myoclonic type movements, concerning for possible seizure. EEG DESCRIPTION The background consists of mostly delta and theta range rhythm. There are triphasic waves noted occasionally. No significant asymmetries in background. There is poor anterior-posterior gradient and no well formed posterior dominant rhythm is seen. Normal sleep architecture is not observed. There are no epileptiform discharges or electrographic seizures noted throughout the recording. IMPRESSION This is an abnormal routine EEG due to the presence of diffuse slowing of background and occasional triphasic waves. These findings can be seen in the setting of metabolic encephalopathy. There are no electrographic seizures noted. Clinical correlation is recommended.
[2022-09-21 11:22] LABS: Glucose Point of Care 127 mg/dl (65-105)
--- NOTE | 2022-09-21 11:27 | PCFNICU ---
ICU Rounding Note: Pt current nutrition is Vital AF 1.2 at Nutrition recommendation: Last recorded weight is 113.5 kg. Bowel Motility: +BM reported 09/18 Labs Reviewed:Glu 145, BUN 26, Cr 0.4,Hct 36.4,Hgb 11.5 Meds Noted:Elena Stuart Skin:WNL Additional Notes: Patient remains on mechanical vent and tube feeding of Vital AF at 60 ml/hr with protein modular of Prosource daily. Tube feedings are being tolerated per nursing. Flush 30 ml q 4 hours. No sedation. Discussions regarding tracheostomy if patient is unable to wean from ventilator. Agree with diet orders. Following daily in ICU rounds. Will monitor weight, labs, tube feedings tolerances every Sunday and Sunday.
--- NOTE | 2022-09-21 17:26 | WPDCN ---
Assessment and Plan Assessment and plan (1) Acute respiratory failure: Qualifiers: Respiratory failure complication: unspecified whether with hypoxia or hypercapnia Qualified Code(s): J96.00 - Acute respiratory failure, unspecified whether with hypoxia or hypercapnia Code(s): J96.00 - Acute respiratory failure, unspecified whether with hypoxia or hypercapnia Status: Acute Assessment and Plan: Plan OR tomorrow tracheostomy. Risks were discussed with family per nursing. Please make NPO/hold feeds, Hold VT prophylaxis at midnight HPI Data of Consult Date/Time: 09/21/22 17:26 Requesting Physician: Jean Claude Martinez MD Primary Care Provider: Panfilo ValleMD Consult Narrative Narrative: Rere Loza is a 52 year old female with respiratory failure/insufficiency Review of Systems Review of Systems: ROS unobtainable: Yes unobtainable due to endotracheal tube PMFSH Past Medical History Medical History Bronchitis Cerebrovascular accident (08/25/22) Large infarct in the right middle cerebral artery distribution. Chronic pain Depression with anxiety Hyperlipidemia Obstructive sleep apnea Surgical History Surgical History Surgical history unknown Family History Family History Unknown No problems noted. Other Unknown family medical history Social History Social History Social History: Surrogate medical decision maker: Elmer Gonzalez (spouse) or Anastasiya Loza (daughter). Code status: Full code. Smoking status: Unknown if ever smoked Alcohol intake: never Substance use: never Lack of Transportation: No Lack of Food: Never True Current Housing: Decline to Answer Concerned About Future Housing: Decline to Answer Difficulty Paying Gas/Electric Bills: Decline to Answer Difficulty Paying for Meds: Decline to Answer Currently Unemployed: Decline to Answer Education: Decline to Answer Difficulty w/ Childcare or Family Care: Decline to Answer Additional living arrangements comments: [facility] [place]. She has 1 daughter. Spiritual care concerns: No Meds Home Medications and Allergies Home Medications Medication Instructions Recorded Confirmed Type albuterol sulfate 90 mcg/actuation 2 puff inhalation QID PRN 08/25/22 09/12/22 History aerosol inhaler (Ventolin HFA) Shortness Of Breath Or Wheezing apixaban 5 mg tablet (Eliquis) 5 mg PO Q12H 08/25/22 09/12/22 History atorvastatin 40 mg tablet 40 mg PO HS 08/25/22 09/12/22 History budesonide-formoterol HFA 80 2 puff inhalation Q12H 08/25/22 09/12/22 History mcg-4.5 mcg/actuation aerosol inhaler celecoxib 100 mg capsule (Celebrex) 100 mg PO DAILY 08/25/22 09/12/22 History enalapril maleate 5 mg tablet 5 mg PO DAILY 08/25/22 09/12/22 History oxycodone 5 mg tablet 5 mg PO Q6H Pain 08/25/22 09/12/22 History paroxetine HCl 30 mg tablet 30 mg PO DAILY 08/25/22 09/12/22 History trazodone 50 mg tablet 50 mg PO HS PRN Insomnia 08/25/22 09/12/22 History furosemide 20 mg tablet 20 mg PO DAILY 09/12/22 09/12/22 History mirtazapine 15 mg PO DAILY 09/12/22 09/12/22 History Allergies Allergy/AdvReac Type Severity Reaction Status Date / Time meperidine Allergy Mild Hives Verified 09/12/22 10:26 Vital Signs Vital Signs - 24 hr 09/20/22 17:29 09/20/22 18:00 09/20/22 18:00 Temperature 37.6 C H 37.5 C Pulse Rate 85 85 Respiratory Rate 17 Blood Pressure 122/74 Pulse Oximetry 98 Oxygen Delivery Fraction of Inspired Oxygen 09/20/22 18:10 09/20/22 20:10 09/20/22 20:17 Temperature Pulse Rate 81 87 87 Respiratory Rate 18 Blood Pressure Pulse Oximetry 99 97 Oxygen Delivery Mechanical Ventilation Mechanical Ventilation
--- NOTE | 2022-09-21 18:09 | PM.IMHP ---
H&P: HPI History of Present Illness Date/Time: 09/21/22 18:09 Chief Complaint: Respiratory failure respiratory insufficiency Narrative: planned procedure Review of Systems Review of Systems: ROS unobtainable: Yes unobtainable due to endotracheal tube PMFSH Past Medical History Medical History Bronchitis Cerebrovascular accident (08/25/22) Large infarct in the right middle cerebral artery distribution. Chronic pain Depression with anxiety Hyperlipidemia Obstructive sleep apnea Surgical History Surgical History Surgical history unknown Family History Family History Unknown No problems noted. Other Unknown family medical history Social History Social History Social History: Surrogate medical decision maker: Elmer Gonzalez (spouse) or Anastasiya Loza (daughter). Code status: Full code. Smoking status: Unknown if ever smoked Alcohol intake: never Substance use: never Lack of Transportation: No Lack of Food: Never True Current Housing: Decline to Answer Concerned About Future Housing: Decline to Answer Difficulty Paying Gas/Electric Bills: Decline to Answer Difficulty Paying for Meds: Decline to Answer Currently Unemployed: Decline to Answer Education: Decline to Answer Difficulty w/ Childcare or Family Care: Decline to Answer Additional living arrangements comments: [facility]. She has 1 daughter. Spiritual care concerns: No Meds Home Medications and Allergies Home Medications Medication Instructions Recorded Confirmed Type albuterol sulfate 90 mcg/actuation 2 puff inhalation QID PRN 08/25/22 09/12/22 History aerosol inhaler (Ventolin HFA) Shortness Of Breath Or Wheezing apixaban 5 mg tablet (Eliquis) 5 mg PO Q12H 08/25/22 09/12/22 History atorvastatin 40 mg tablet 40 mg PO HS 08/25/22 09/12/22 History budesonide-formoterol HFA 80 2 puff inhalation Q12H 08/25/22 09/12/22 History mcg-4.5 mcg/actuation aerosol inhaler celecoxib 100 mg capsule (Celebrex) 100 mg PO DAILY 08/25/22 09/12/22 History enalapril maleate 5 mg tablet 5 mg PO DAILY 08/25/22 09/12/22 History oxycodone 5 mg tablet 5 mg PO Q6H Pain 08/25/22 09/12/22 History paroxetine HCl 30 mg tablet 30 mg PO DAILY 08/25/22 09/12/22 History trazodone 50 mg tablet 50 mg PO HS PRN Insomnia 08/25/22 09/12/22 History furosemide 20 mg tablet 20 mg PO DAILY 09/12/22 09/12/22 History mirtazapine 15 mg PO DAILY 09/12/22 09/12/22 History Allergies Allergy/AdvReac Type Severity Reaction Status Date / Time meperidine Allergy Mild Hives Verified 09/12/22 10:26 Vital Signs Vital Signs - 24 hr 09/20/22 18:10 09/20/22 20:10 09/20/22 20:17 Temperature Pulse Rate 81 87 87 Respiratory Rate 18 Blood Pressure Pulse Oximetry 99 97 Oxygen Delivery Mechanical Ventilation Mechanical Ventilation Fraction of Inspired Oxygen 30 30 09/20/22 20:00 09/20/22 20:00 09/20/22 20:00 Temperature Pulse Rate 93 93 Respiratory Rate Blood Pressure Pulse Oximetry 98 Oxygen Delivery Mechanical Ventilation Fraction of Inspired Oxygen 30 30 09/20/22 20:00 09/20/22 22:00 09/20/22 20:27 Temperature 37.3 C Pulse Rate 93 97 83 Respiratory Rate 18 20 18 Blood Pressure 121/84 135/84 Pulse Oximetry 98 98 Oxygen Delivery Fraction of Inspired Oxygen 09/20/22 23:15 09/21/22 00:00 09/21/22 00:00 Temperature Pulse Rate 99 64 Respiratory Rate 21 H Blood Pressure Pulse Oximetry 98 95 Oxygen Delivery Mechanical Ventilation Mechanical Ventilation Fraction of Inspired Oxygen 30 30 30 09/21/22 00:00 09/21/22 00:00 09/21/22 02:00 Temperature 37.1 C Pulse Rate 64 64 106 H Respiratory Rate 22 H 22 H Blood Pressure 133/82 1
--- NOTE | 2022-09-21 19:02 | PM.IMPN ---
Progress Note: A&P Assessment and Plan (1) Encephalopathy: Code(s): G93.40 - Encephalopathy, unspecified Status: Acute Assessment and Plan: Encephalopathy likely multifactorial from hypernatremia, hypotension, septic shock/infection, recent history of CVA, brain swelling noted by CT and probably hypoxia. She has been off sedation since 09/15. -Head CT 09/12: evolving Rt MCA CVA. -EEG 09/15: Abnormal record due to the presence of bihemispheric delta activity without evidence of any paroxysmal discharge.? These abnormalities are consistent with diffuse organic or metabolic encephalopathy without evidence of any electrical seizures -Repeat Head CT 09/16: Effacement of the cortical suldi bilaterally consistent with brain swelling. -Neurology stated that the EEG was not favorable and that she may have had some hypoxic injury -Unable to obtain MRI -patient appears to be having myoclonic jerking but repeat EEG today showing diffuse slowing but no electrographic seizures noted. Continue Keppra. (2) Acute respiratory failure: Qualifiers: Respiratory failure complication: unspecified whether with hypoxia or hypercapnia Qualified Code(s): J96.00 - Acute respiratory failure, unspecified whether with hypoxia or hypercapnia Code(s): J96.00 - Acute respiratory failure, unspecified whether with hypoxia or hypercapnia Status: Acute Assessment and Plan: Acute respiratory failure likely related to encephalopathy from possible aspiration and intubated on 09/12. Off sedation since 09/15. CXR today showing minimal bibasilar edema vs atelectasis. ABG 7.47/44/87. Unable to wean from the ventilator due to her mental status. Plan for tracheostomy tomorrow. Vent management per application development specialist. (3) Septic shock: Code(s): A41.9 - Sepsis, unspecified organism; R65.21 - Severe sepsis with septic shock Status: Acute Assessment and Plan: Septic shock likely related to pneumonia, UTI. Patient was adequately fluid resuscitated in the ER and ICU. She is off all vasopressors since 09/13. -09/12/2022: Echo EF of 60-65%, LV chamber dimension is normal, grade 1 diastolic dysfunction, RV systolic function is reduced, trace mitral and trace tricuspid valve regurgitation. Small anterior pericardial effusion -BCx 09/12: negative -UCx 09/12: negative -MRSA Screen 09/12: negative -Sputum Cx 09/12: negative She completed a 7 day course of appropriate abx. Resolved (4) Acute renal failure: Qualifiers: Acute renal failure type: unspecified Qualified Code(s): N17.9 - Acute kidney failure, unspecified Code(s): N17.9 - Acute kidney failure, unspecified Status: Acute Assessment and Plan: Acute renal failure likely related to dehydration, hypotension, septic shock, ATN, infection, and/or medication (KALEIGH-inhibitor and Celebrex use at home). Cr 2.9 on admission. Urine lytes c/w prerenal. -CK levels were mildly elevated -09/12 renal ultrasound: Bladder decompressed by a Brandon catheter and therefore not well evaluated. Otherwise, unremarkable renal sonogram findings. No evidence of hydronephrosis. -patient received adequate amount of IV fluid -urine output improved. Creatinine has normalized Continue to monitor electrolytes, renal function and urine output (5) Acute hypernatremia: Code(s): E87.0 - Hyperosmolality and hypernatremia Status: Acute Assessment and Plan: Acute hypernatremia likely related to decreased p.o. intake, dehydration, free water loss, and/or insensible water loss -sodium 165 on admission 09/12 -patient received adequate IV fluids -initially was on normal saline maintenance fluids which was switched to D5W per nephrology to treat her hyponatremia -09/15: Sodium levels 144 so D5W discontinued -Sodium levels remained stable and normal Appreciate Nephrology evaluation and recommendations (6) Depression with anxiety: Code(s): F41.8 - Other specified an
[2022-09-22] VITALS (73 sets, daily range): BP systolic 89–136; BP diastolic 57–102; PULSE 59–117; RESP 12–25; TEMP 36.7–37.4; O2SAT 92–100
[2022-09-22 00:13] LABS: Glucose Point of Care 146 mg/dl (65-105)
[2022-09-22] MEDS: LEVALBUTEROL NEB 1.25 MG/3 ML 0.63 MG INHALATION ×2 (02:20→08:49)
[2022-09-22] MEDS: IPRATROPIUM BR 0.02% INH SOLN 0.5 MG/2.5 ML VIAL INHALATION ×2 (02:20→08:50)
[2022-09-22 03:48] LABS: Glucose Point of Care 121 mg/dl (65-105)
[2022-09-22 04:52] LABS: Alveolar/Arterial O2 Gradient 86.9 mmHg; Base Excess ABG 7.1 mEq/l (+/-2.0); Carboxyhemoglobin 0.3 % THb (0-2.0); Fractional Inspired Oxygen 30 %; HCO3 ABG 31.1 mEq/l (22.0-26.0); Methemoglobin ABG 0.6 %THb (0-1.5); Oxygen Content ABG 25.2 %vol (16.0-22.0); Oxygen Saturation ABG 96.5 % (95.0-100.0); Oxyhemoglobin 94.8 % THb (90.0-100.0); PCO2 ABG 41.3 mmHg (35.0-45.0); PO2 ABG 78.5 mmHg (80.0-100.0); PO2 FiO2 Ratio Arterial Blood 2.62 %; Reduced Hemoglobin 4.3 %THb (0-5.0); Total Hemoglobin 18.9 g/dL (12.0-18.0); pH ABG 7.495 (7.350-7.450)
[2022-09-22 04:54] LABS: Device VENTILATOR; Modified Allen's Test Pass; Site Drawn LEFT RADIAL
[2022-09-22 04:56] LABS: Arterial Blood Gas PEEP 5 cmH2O; Arterial Blood Gas Tidal Volume 400 ml; Arterial Blood Gas Vent Mode CMV; Arterial Blood Gas Ventilator rate 18 /MIN
[2022-09-22 05:47] LABS: Hematocrit 33.8 % (37.0-47.0); Hemoglobin 10.8 g/dL (12.0-15.0); Mean Corpuscular Hemoglobin 31.9 pg (26-34); Mean Corpuscular Volume 99.7 fl (80-100); Mean Platelet Volume 10.8 fl (7.4-10.4); Platelet Count Result 264 k/mm3 (150-375); Red Blood Count 3.39 M/mm3 (4.2-5.4); White Blood Count 7.9 K/mm3 (4.5-10.0)
[2022-09-22 06:00] LABS: Alanine Aminotransferase 138 U/L (6-35); Albumin Level 3.2 g/dL (3.5-5.1); Alkaline Phosphatase 78 U/L (38-126); Anion Gap 1 mmol/L (8-16); Aspartate Amino Transferase 91 U/L (14-36); Bilirubin,Total 0.8 mg/dL (0.2-1.3); Blood Urea Nitrogen 25 mg/dL (7-17); Calcium 9.1 mg/dL (8.4-10.2); Carbon Dioxide 37 mmol/L (22-30); Chloride 100 mmol/L (98-107); Estimated CRCL calculation 169 ml/min; Estimated Glomerular Filt Rate > 60; Glucose 123 mg/dL (65-110); Magnesium 2.2 mg/dL (1.6-2.3); Potassium 3.5 mmol/L (3.4-5.0); Sodium 138 mmol/L (137-145)
[2022-09-22] MEDS: CENTRAL LINE FLUSH 10 ML IV PUSH ×4 (06:45→20:14)
[2022-09-22 06:48] LABS: Glucose Point of Care 136 mg/dl (65-105)
--- NOTE | 2022-09-22 07:16 | WPDHPUPDATE1 ---
History and Physical Update Update Date/Time: 09/22/22 07:16 History and Physical has been reviewed, including an updated exam of the patient. There are NO changes in the patient's condition. Risks, benefits, and alternatives have been discussed and questions answered. Patient agrees to proceed with procedure.
--- NOTE | 2022-09-22 08:50 | WPDINTPN ---
Progress Note: A&P Assessment and Plan (1) Encephalopathy: Code(s): G93.40 - Encephalopathy, unspecified Status: Acute Assessment and Plan: Encephalopathy likely multifactorial -hypernatremia, hypotension, septic shock/infection, recent history of CVA, ? Hypoxia -off all sedation for many days -09/15 EEG: Abnormal record due to the presence of bihemispheric delta activity without evidence of any paroxysmal discharge.? These abnormalities are consistent with diffuse organic or metabolic encephalopathy without evidence of any electrical seizures. -head CT 09/16 IMPRESSION:? 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 Merino, who stated that the EEG was not favorable and that she may have had some hypoxic injury -unable to obtain MRI on a mechanically ventilated patient and Wally although this would likely not change treatment or prognosis at this time 09/20 patient appears to be having myoclonic jerking. Repeat EEG This is an abnormal routine EEG due to the presence of diffuse slowing of background and occasional triphasic waves. These findings can be seen in the setting of metabolic encephalopathy. There are no electrographic seizures noted. Clinical correlation is recommended. Continue Keppra (2) Acute respiratory failure: Qualifiers: Respiratory failure complication: unspecified whether with hypoxia or hypercapnia Qualified Code(s): J96.00 - Acute respiratory failure, unspecified whether with hypoxia or hypercapnia Code(s): J96.00 - Acute respiratory failure, unspecified whether with hypoxia or hypercapnia Status: Acute Assessment and Plan: Acute respiratory failure likely related to encephalopathy, possible aspiration, airway protection -intubated on 09/12/2022 -currently on ASV mode of ventilation, peep of 8, 30% FiO2 -ABGs reviewed, O2 to maintain O2 sats > 92% -chest x-ray this morning: Small left pleural effusion with minimal left basilar airspace opacity and stable right basilar airspace opacity, atelectasis versus pneumonia -continue bronchodilators -off all sedation since 09/15 -unable to wean from the ventilator due to her mental status. Patient tolerates PSV 10/5 but will not be able to protect her airway. -continue pressure support as tolerated -patient is scheduled for tracheostomy as she has been on vent for more than 10 days and she has not shown any meaningful improvement in her neurological status that will allow her to be weaned from ventilator in short term. I have discussed this with patient's who is agreeable to proceed with trach and PEG (3) Septic shock: Code(s): A41.9 - Sepsis, unspecified organism; R65.21 - Severe sepsis with septic shock Status: Acute Assessment and Plan: RESOLVED Septic shock likely related to pneumonia, UTI -patient was adequately resuscitated in the ER and ICU. -OFF all vasopressors -09/12: blood cultures - no growth 05/04 bottles -09/12: urine cultures -negative -09/12: MRSA screen is negative -09/12 sputum culture: Specimen is entry level account representative of lower respiratory tract. -continue cefepime, Flagyl (09/12) for total of 7 days -vancomycin was discontinued on 09/12 -09/12/2022: Echocardiogram showed EF of 60-65%, LV chamber dimension is normal, grade 1 diastolic dysfunction, RV systolic function is reduced, trace mitral and trace tricuspid valve regurgitation. Small anterior pericardial effusion (4) Acute renal failure: Qualifiers: Acute renal failure type: unspecified Qualified Code(s): N17.9 - Acute kidney failure, unspecified Code(s): N17.9 - Acute kidney failure, unspecified Status: Acute Assessment and Plan: RESOLVED Acute renal failure likely relat
--- NOTE | 2022-09-22 08:53 | WPDANESEPPF ---
Anes - Initial Pre Proc Eval Procedure: Operation Date: 09/22/22 10:00 Proposed Procedures p Tracheostomy - Landon Harrington MD Date/Time: 09/22/22 08:53 Surgeon: Jean Claude Martinez MD Pre Op Diagnosis: Septic Shock, Hypoxia, Elev Trop, Hypernatremia Patient Data Age: 52 Gender: F Height: 1.68 m Weight: 117 kg Last Vital Signs Temp 37.3 C 09/22/22 06:00 Pulse 90 09/22/22 08:50 Resp 18 09/22/22 08:50 BP 104/70 09/22/22 06:00 Pulse Ox 97 09/22/22 06:00 O2 Del Method Mechanical Ventilation 09/22/22 05:07 FiO2 30 09/22/22 05:07 Allergies Allergy/AdvReac Type Severity Reaction Status Date / Time meperidine Allergy Mild Hives Verified 09/12/22 10:26 Home Medications Medication Instructions Recorded Confirmed Type albuterol sulfate 90 mcg/actuation 2 puff inhalation QID PRN 08/25/22 09/12/22 History aerosol inhaler (Ventolin HFA) Shortness Of Breath Or Wheezing apixaban 5 mg tablet (Eliquis) 5 mg PO Q12H 08/25/22 09/12/22 History atorvastatin 40 mg tablet 40 mg PO HS 08/25/22 09/12/22 History budesonide-formoterol HFA 80 2 puff inhalation Q12H 08/25/22 09/12/22 History mcg-4.5 mcg/actuation aerosol inhaler celecoxib 100 mg capsule (Celebrex) 100 mg PO DAILY 08/25/22 09/12/22 History enalapril maleate 5 mg tablet 5 mg PO DAILY 08/25/22 09/12/22 History oxycodone 5 mg tablet 5 mg PO Q6H Pain 08/25/22 09/12/22 History paroxetine HCl 30 mg tablet 30 mg PO DAILY 08/25/22 09/12/22 History trazodone 50 mg tablet 50 mg PO HS PRN Insomnia 08/25/22 09/12/22 History furosemide 20 mg tablet 20 mg PO DAILY 09/12/22 09/12/22 History mirtazapine 15 mg PO DAILY 09/12/22 09/12/22 History Laboratory Tests 09/21/22 09/21/2209/22/23 11:21 18:00 00:10 WBC RBC Hgb Hct MCV MCH MCHC RDW Plt Count MPV Puncture Site ABG pH ABG pCO2 ABG pO2 ABG PO2/FiO2 Ratio ABG HCO3 ABG O2 Saturation ABG O2 Content ABG Base Excess A-a Gradient Oxyhemoglobin Carboxyhemoglobin Methemoglobin Reduced Hemoglobin Total Hemoglobin O2 Delivery Device O2 Liters/Min Minute Volume Vent Rate Vent Mode FiO2 Tidal Volume PEEP Peak Inspir Pressure Pressure Support Sodium Potassium Chloride Carbon Dioxide Anion Gap BUN Creatinine Estim Creat Clear Calc Estimated GFR Glucose POC Capillary Glucose 127 H mg/dl 121 H mg/dl 146 H mg/dl (65-105) (65-105) (65-105) Calcium Magnesium Total Bilirubin AST ALT Alkaline Phosphatase Total Protein Albumin 09/22/22 09/22/22 09/22/22 04:34 05:35 05:36 WBC 7.9 K/mm3 (4.5-10.0) RBC 3.39 L M/mm3 (4.2-5.4) Hgb 10.8 L g/dL (12.0-15.0) Hct 33.8 L % (37.0-47.0) MCV 99.7 fl (80-100) MCH 31.9 pg (26-34) MCHC 32.0 g/dl (32-36) RDW 15.0 H % (11.5-14.5) Plt Count 264 k/mm3 (150-375) MPV 10.8 H fl (7.4-10.4) Puncture Site Left radial ABG pH 7.495 H (7.350-7.450) ABG pCO2 41.3 mmHg (35.0-45.0) ABG pO2 78.5 L mmHg (80.0-100.0) ABG PO2/FiO2 Ratio 2.62 % ABG HCO3 31.1 H mEq/l (22.0-26.0) ABG O2 Saturation 96.5 % (95.0-100.0) ABG O2 Content 25.2 H %vol (16.0-22.0) ABG Base Excess 7.1 mEq/l (+/-2.0) A-a Gradient 86.9 m
[2022-09-22] MEDS: MINERAL OIL/WHITE PETROLATUM OINTMENT 1 APPLIC EACH EYE ×2 (09:04→20:14)
[2022-09-22] MEDS: levETIRAcetam 500MG/NACL 100ML 500 MG/100 ML BAG 400 MG IVPB ×2 (09:04→20:13)
[2022-09-22] MEDS: POTASSIUM CHLORIDE 20 MEQ PACKET (FOR LIQUID) 40 MEQ FEED TUBE (09:05)
[2022-09-22] MEDS: PANTOPRAZOLE SODIUM IV 40 MG VIAL IV PUSH (09:05)
--- NOTE | 2022-09-22 09:58 | PC.NURSE ---
0940- Patient transported to OR for tracheostomy
[2022-09-22] MEDS: LIDO 1%/EPINEPHRINE 1:100,000 50 ML VIAL INFILTRATE (10:09)
--- NOTE | 2022-09-22 11:17 | PCNFU ---
Nutrition Follow-Up Complete: Inadequate Oral Intake as related to mechanical vent as evidenced by NPO. Goal: Meet estimated nutritional needs Patient will continue current goal. Pt current nutrition is NPO. Nutrition recommendation: Vital AF 1.2 at 60 ml/hr with 1 prosource daily. Last recorded weight is 117 kg. Bowel Motility:+Bm reported 09/18 Labs Reviewed:BUN 25, Cr 0.4,Alb 3.2,Hct 36.4,Hgb 11.5 Meds Noted:Suppository, Miralax, Keppra Skin:WNL Additional Notes: Patient is NPO for Trach and PEG today. Recommend tube feedings of Vital AF 1.2. at 60 ml/hr with 1 prosource daily providing 1664 kcals/118 gm protein/1071 ml water. Meeting 94% kcal needs at 15 kcal/kg and 100% protein needs at 2.0 gm/kg of IBW. Flush 30 ml q 4 hours. Agree with diet orders. Will monitor weight, labs, tube feedings tolerance every Sunday and Sunday.
--- NOTE | 2022-09-22 11:25 | P.OP_ITS ---
Procedure Note - Detailed Date of Procedure 09/22/22 Pre-op Diagnosis Respiratory failure Post-op Diagnosis Same Procedure Performed tracheostomy Surgeon Landon Harrington MD Anesthesia General Indications see above Findings deep trachea trach placed between rings 2 and 3 7 proximal XLT Shiley. Description of Procedure Patient identified in ICU patient brought operating room. Time-out performed. General anesthesia deepened. Patient prepped draped positioned procedure conform 2nd time-out performed. Surgical incision drawn about 2 fingerbreadths above the sternoclavicular notch. A 2 cc 1% lidocaine 1 100,000 parts epinephrine injected deep to the pre drawn incision. Fifteen blade utilized to cut through epidermis and dermis Bovie electrocautery utilized to perform lipectomy as the risks significant amount of adipose tissue deep to the dermis. [employer] retractors placed dissection continued in the midline until the trachea of thyroid isthmus was encountered thyroid isthmus transected trachea skeletonized cricoid hook placed. Fifteen blade utilized to make tracheotomy widened with heavy curved Nichols scissors. Trach semiconductor packages platemaker placed. Anesthesia then removed the endotracheal tube does no longer visible within the tracheotomy. Trach placed. Again was a 7 proximal XLT Shiley. Tube inflated sorry cuff inflated. Anesthesia confirmed end-tidal CO2 good exchange. Four corner sutures placed trach ties placed. Patient tolerated the procedure well no complications. Care the patient given back to Anesthesiology. Patient taken to ICU. I performed all dictated portions the procedure no complications blood loss about 5 cc. Estimated Blood Loss 5 Urine Output 450 Drains No Packing No Pathology None sent Complications No immediate complications Condition Stable Disposition PACU [facility] Billing Surgery - Charge Forward: Surgery Billing
--- NOTE | 2022-09-22 13:48 | WPDGICN ---
Assessment and Plan Assessment and plan (1) CVA (cerebral vascular accident): Qualifiers: CVA mechanism: unspecified Qualified Code(s): I63.9 - Cerebral infarction, unspecified Code(s): I63.9 - Cerebral infarction, unspecified Status: Acute Assessment and Plan: she has persistent neurologic deficit. (2) Sepsis: Code(s): A41.9 - Sepsis, unspecified organism Status: Acute Assessment and Plan: This was thought to be due to her pneumonia. (3) Altered mental status: Code(s): R41.82 - Altered mental status, unspecified Status: Acute Assessment and Plan: Encephalopathy due to stroke and possibly other causes like sepsis are contributing (4) Dysphagia: Code(s): R13.10 - Dysphagia, unspecified Status: Acute Assessment and Plan: neurologic dysphagia because of her status she will have percutaneous endoscopic gastrostomy tube placed today Plan EGD with PEG tube placement GI Consult Note Consult date/time: 09/22/22 13:48 HPI: Rere Loza is a 52 year old female Who unfortunately suffered a severe cerebrovascular accident involving the MCA. That was last month. She then was a resident of [place] but a week ago was found to be unresponsive and was brought here. She was intubated for airway protection because she was not breathing effectively. Thought that she had sepsis due to pneumonia and urinary tract infection. She has been unable to eat and therefore I am asked to see regarding placement of a feeding tube. She has just had a tracheostomy placed this morning. Review of Systems Review of Systems: ROS unobtainable: Yes unobtainable due to mental status PMFSH Past Medical History Medical History Bronchitis Cerebrovascular accident (08/25/22) Large infarct in the right middle cerebral artery distribution. Chronic pain Depression with anxiety Hyperlipidemia Obstructive sleep apnea Surgical History Surgical History Surgical history unknown Family History Family History Unknown No problems noted. Other Unknown family medical history Social History Social History Social History: Surrogate medical decision maker: Elmer Gonzalez (spouse) or Anastasiya Loza (daughter). Code status: Full code. Smoking status: Unknown if ever smoked Alcohol intake: never Substance use: never Lack of Transportation: No Lack of Food: Never True Current Housing: Decline to Answer Concerned About Future Housing: Decline to Answer Difficulty Paying Gas/Electric Bills: Decline to Answer Difficulty Paying for Meds: Decline to Answer Currently Unemployed: Decline to Answer Education: Decline to Answer Difficulty w/ Childcare or Family Care: Decline to Answer Additional living arrangements comments: Resident [facility]. She has 1 daughter. Spiritual care concerns: No Meds Home Medications and Allergies Home Medications Medication Instructions Recorded Confirmed Type albuterol sulfate 90 mcg/actuation 2 puff inhalation QID PRN 08/25/22 09/12/22 History aerosol inhaler (Ventolin HFA) Shortness Of Breath Or Wheezing apixaban 5 mg tablet (Eliquis) 5 mg PO Q12H 08/25/22 09/12/22 History atorvastatin 40 mg tablet 40 mg PO HS 08/25/22 09/12/22 History budesonide-formoterol HFA 80 2 puff inhalation Q12H 08/25/22 09/12/22 History mcg-4.5 mcg/actuation aerosol inhaler celecoxib 100 mg capsule (Celebrex) 100 mg PO DAILY 08/25/22 09/12/22 History enalapril maleate 5 mg tablet 5 mg PO DAILY 08/25/22 09/12/22 History oxycodone 5 mg tablet 5 mg PO Q6H Pain 08/25/22 09/12/22 History paroxetine HCl 30 mg tablet 30 mg PO DAILY 08/25/22 09/12/22 History trazodone 50 mg
--- NOTE | 2022-09-22 14:39 | PM.IMPN ---
Progress Note: A&P Assessment and Plan (1) Encephalopathy: Code(s): G93.40 - Encephalopathy, unspecified Status: Acute Assessment and Plan: Encephalopathy likely multifactorial from hypernatremia, hypotension, septic shock/infection, recent history of CVA, brain swelling noted by CT and probably hypoxia. She has been off sedation since 09/15. -Head CT 09/12: evolving Rt MCA CVA. -EEG 09/15: Abnormal record due to the presence of bihemispheric delta activity without evidence of any paroxysmal discharge.? These abnormalities are consistent with diffuse organic or metabolic encephalopathy without evidence of any electrical seizures -Repeat Head CT 09/16: Effacement of the cortical suldi bilaterally consistent with brain swelling. -Neurology stated that the EEG was not favorable and that she may have had some hypoxic injury -Unable to obtain MRI -patient appeared to be having myoclonic jerking but repeat EEG 09/21 showing diffuse slowing but no electrographic seizures noted. Continue Keppra. (2) Acute respiratory failure: Qualifiers: Respiratory failure complication: unspecified whether with hypoxia or hypercapnia Qualified Code(s): J96.00 - Acute respiratory failure, unspecified whether with hypoxia or hypercapnia Code(s): J96.00 - Acute respiratory failure, unspecified whether with hypoxia or hypercapnia Status: Acute Assessment and Plan: Acute respiratory failure likely related to encephalopathy from possible aspiration and intubated on 09/12. Off sedation since 09/15. CXR today showing clear lungs. Unable to wean from the ventilator due to her mental status. Tracheostomy placement today. Will also need PEG placed. Vent management per office helper. (3) Septic shock: Code(s): A41.9 - Sepsis, unspecified organism; R65.21 - Severe sepsis with septic shock Status: Acute Assessment and Plan: Septic shock likely related to pneumonia, UTI. Patient was adequately fluid resuscitated in the ER and ICU. She is off all vasopressors since 09/13. -09/12/2022: Echo EF of 60-65%, LV chamber dimension is normal, grade 1 diastolic dysfunction, RV systolic function is reduced, trace mitral and trace tricuspid valve regurgitation. Small anterior pericardial effusion -BCx 09/12: negative -UCx 09/12: negative -MRSA Screen 09/12: negative -Sputum Cx 09/12: negative She completed a 7 day course of appropriate abx. Resolved (4) Acute renal failure: Qualifiers: Acute renal failure type: unspecified Qualified Code(s): N17.9 - Acute kidney failure, unspecified Code(s): N17.9 - Acute kidney failure, unspecified Status: Acute Assessment and Plan: Acute renal failure likely related to dehydration, hypotension, septic shock, ATN, infection, and/or medication (KALEIGH-inhibitor and Celebrex use at home). Cr 2.9 on admission. Urine lytes c/w prerenal. -CK levels were mildly elevated -09/12 renal ultrasound: Bladder decompressed by a Brandon catheter and therefore not well evaluated. Otherwise, unremarkable renal sonogram findings. No evidence of hydronephrosis. -patient received adequate amount of IV fluid -urine output improved. Creatinine has normalized Continue to monitor electrolytes, renal function and urine output (5) Acute hypernatremia: Code(s): E87.0 - Hyperosmolality and hypernatremia Status: Acute Assessment and Plan: Acute hypernatremia likely related to decreased p.o. intake, dehydration, free water loss, and/or insensible water loss -sodium 165 on admission 09/12 -patient received adequate IV fluids -initially was on normal saline maintenance fluids which was switched to D5W per nephrology to treat her hyponatremia -09/15: Sodium levels 144 so D5W discontinued -Sodium levels remained stable and normal Appreciate Nephrology evaluation and recommendations (6) Depression with anxiety: Code(s): F41.8 - Other specified anxiety disorders
[2022-09-22] MEDS: ceFAZolin 1 GM/NS 50 ML 1 GM/50 ML BAG IVPB (15:29)
[2022-09-22] MEDS: PROPOFOL IV EMULSION 100 ML 7.02 MG IV CONT (15:30)
[2022-09-22 17:25] LABS: Glucose Point of Care 106 mg/dl (65-105)
[2022-09-23] VITALS (101 sets, daily range): BP systolic 86–141; BP diastolic 53–90; PULSE 61–125; RESP 16–33; TEMP 36.7–37.9; O2SAT 87–100
[2022-09-23 00:21] LABS: Glucose Point of Care 105 mg/dl (65-105)
[2022-09-23] MEDS: ACETAMINOPHEN 325 MG TABLET 650 MG FEED TUBE (04:59)
[2022-09-23 05:18] LABS: Alveolar/Arterial O2 Gradient 62.4 mmHg; Fractional Inspired Oxygen 25 %; Methemoglobin ABG 0.4 %THb (0-1.5); Oxygen Content ABG 17.7 %vol (16.0-22.0); Oxyhemoglobin 94.3 % THb (90.0-100.0); PCO2 ABG 35.9 mmHg (35.0-45.0); PO2 ABG 73.2 mmHg (80.0-100.0); PO2 FiO2 Ratio Arterial Blood 2.93 %; Reduced Hemoglobin 5.3 %THb (0-5.0); Total Hemoglobin 13.3 g/dL (12.0-18.0)
[2022-09-23 05:21] LABS: Device VENTILATOR; Modified Allen's Test Pass; Site Drawn LEFT RADIAL
[2022-09-23 05:23] LABS: Arterial Blood Gas PEEP 5 cmH2O; Arterial Blood Gas Vent Mode CMV; Arterial Blood Gas Ventilator rate 18 /MIN
[2022-09-23 05:24] LABS: Arterial Blood Gas Tidal Volume 400 ml
[2022-09-23 05:35] LABS: Hematocrit 36.9 % (37.0-47.0); Mean Corpuscular HGB Conc 32.5 g/dl (32-36); Mean Corpuscular Hemoglobin 32.6 pg (26-34); Mean Corpuscular Volume 100.3 fl (80-100); Mean Platelet Volume 10.6 fl (7.4-10.4); Platelet Count Result 314 k/mm3 (150-375); Red Blood Count 3.68 M/mm3 (4.2-5.4); Red Cell Distribution Width 15.5 % (11.5-14.5); White Blood Count 10.8 K/mm3 (4.5-10.0)
[2022-09-23 05:45] LABS: Alanine Aminotransferase 180 U/L (6-35); Albumin Level 3.8 g/dL (3.5-5.1); Alkaline Phosphatase 101 U/L (38-126); Anion Gap 3 mmol/L (8-16); Aspartate Amino Transferase 88 U/L (14-36); Bilirubin,Total 0.9 mg/dL (0.2-1.3); Blood Urea Nitrogen 20 mg/dL (7-17); Calcium 9.3 mg/dL (8.4-10.2); Carbon Dioxide 33 mmol/L (22-30); Chloride 103 mmol/L (98-107); Estimated CRCL calculation 172 ml/min; Estimated Glomerular Filt Rate > 60; Glucose 127 mg/dL (65-110); Magnesium 2.4 mg/dL (1.6-2.3); Potassium 3.4 mmol/L (3.4-5.0); Sodium 139 mmol/L (137-145)
[2022-09-23] MEDS: CENTRAL LINE FLUSH 10 ML IV PUSH ×4 (06:10→20:39)
[2022-09-23 06:14] LABS: Glucose Point of Care 139 mg/dl (65-105)
[2022-09-23] MEDS: POTASSIUM CHLORIDE 20 MEQ PACKET (FOR LIQUID) 40 MEQ FEED TUBE ×2 (08:04→14:59)
[2022-09-23] MEDS: HYDROcodone/acetaminophen (*CRX) 5-325 MG TABLET 1 TAB PO ×2 (08:04→17:25)
[2022-09-23] MEDS: MINERAL OIL/WHITE PETROLATUM OINTMENT 1 APPLIC EACH EYE ×2 (08:04→20:39)
[2022-09-23] MEDS: polyethylene glycoL 3350 17 GM POWD.PACK PO (08:04)
[2022-09-23] MEDS: APIXABAN 5 MG TABLET PO ×2 (08:04→20:39)
[2022-09-23] MEDS: PANTOPRAZOLE SODIUM IV 40 MG VIAL IV PUSH (08:05)
[2022-09-23] MEDS: levETIRAcetam 500MG/NACL 100ML 500 MG/100 ML BAG 400 MG IVPB ×2 (08:05→20:38)
--- NOTE | 2022-09-23 08:39 | WPDINTPN ---
Progress Note: A&P Assessment and Plan (1) Encephalopathy: Code(s): G93.40 - Encephalopathy, unspecified Status: Acute Assessment and Plan: Encephalopathy likely multifactorial -hypernatremia, hypotension, septic shock/infection, recent history of CVA, ? Hypoxia -off all sedation for many days -09/15 EEG: Abnormal record due to the presence of bihemispheric delta activity without evidence of any paroxysmal discharge.? These abnormalities are consistent with diffuse organic or metabolic encephalopathy without evidence of any electrical seizures. -head CT 09/16 IMPRESSION:? 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 Merino, who stated that the EEG was not favorable and that she may have had some hypoxic injury -unable to obtain MRI on a mechanically ventilated patient and Wally although this would likely not change treatment or prognosis at this time 09/20 patient appears to be having myoclonic jerking. Repeat EEG This is an abnormal routine EEG due to the presence of diffuse slowing of background and occasional triphasic waves. These findings can be seen in the setting of metabolic encephalopathy. There are no electrographic seizures noted. Clinical correlation is recommended. Continue Keppra (2) Acute respiratory failure: Qualifiers: Respiratory failure complication: unspecified whether with hypoxia or hypercapnia Qualified Code(s): J96.00 - Acute respiratory failure, unspecified whether with hypoxia or hypercapnia Code(s): J96.00 - Acute respiratory failure, unspecified whether with hypoxia or hypercapnia Status: Acute Assessment and Plan: Acute respiratory failure likely related to encephalopathy, possible aspiration, airway protection -intubated on 09/12/2022 -currently on ASV mode of ventilation, peep of 8, 30% FiO2 -ABGs reviewed, O2 to maintain O2 sats > 92% -chest x-ray this morning: Small left pleural effusion with minimal left basilar airspace opacity and stable right basilar airspace opacity, atelectasis versus pneumonia -continue bronchodilators -off all sedation since 09/15 -unable to wean from the ventilator due to her mental status. Patient tolerates PSV 10/5 but will not be able to protect her airway. - 09/22 tracheostomy done -will place patient on pressure support 10/5 and continue as tolerated (3) Septic shock: Code(s): A41.9 - Sepsis, unspecified organism; R65.21 - Severe sepsis with septic shock Status: Acute Assessment and Plan: RESOLVED Septic shock likely related to pneumonia, UTI -patient was adequately resuscitated in the ER and ICU. -OFF all vasopressors -09/12: blood cultures - no growth 2/ bottles -09/12: urine cultures -negative -09/12: MRSA screen is negative -09/12 sputum culture: Specimen is veterans service representative of lower respiratory tract. -continue cefepime, Flagyl (09/12) for total of 7 days -vancomycin was discontinued on 09/12 -09/12/2022: Echocardiogram showed EF of 60-65%, LV chamber dimension is normal, grade 1 diastolic dysfunction, RV systolic function is reduced, trace mitral and trace tricuspid valve regurgitation. Small anterior pericardial effusion (4) Acute renal failure: Qualifiers: Acute renal failure type: unspecified Qualified Code(s): N17.9 - Acute kidney failure, unspecified Code(s): N17.9 - Acute kidney failure, unspecified Status: Acute Assessment and Plan: RESOLVED Acute renal failure likely related to dehydration, hypotension, septic shock, ATN, infection, KALEIGH-inhibitor and Celebrex use at home Celebrex -urine lytes with prerenal -CK levels were mildly elevated -09/12 renal ultrasound: Bladder decompressed by a Brandon catheter and therefore not well e
--- NOTE | 2022-09-23 10:22 | PM.IMPN ---
Progress Note: A&P Assessment and Plan (1) Encephalopathy: Code(s): G93.40 - Encephalopathy, unspecified Status: Acute Assessment and Plan: Encephalopathy likely multifactorial from hypernatremia, hypotension, septic shock/infection, recent history of CVA, brain swelling noted by CT and probably hypoxia. She has been off sedation since 09/15. -Head CT 09/12: evolving Rt MCA CVA. -EEG 09/15: Abnormal record due to the presence of bihemispheric delta activity without evidence of any paroxysmal discharge.? These abnormalities are consistent with diffuse organic or metabolic encephalopathy without evidence of any electrical seizures -Repeat Head CT 09/16: Effacement of the cortical suldi bilaterally consistent with brain swelling. -Neurology stated that the EEG was not favorable and that she may have had some hypoxic injury -Unable to obtain MRI -patient appeared to be having myoclonic jerking but repeat EEG 09/21 showing diffuse slowing but no electrographic seizures noted. Continue Keppra. (2) Acute respiratory failure: Qualifiers: Respiratory failure complication: unspecified whether with hypoxia or hypercapnia Qualified Code(s): J96.00 - Acute respiratory failure, unspecified whether with hypoxia or hypercapnia Code(s): J96.00 - Acute respiratory failure, unspecified whether with hypoxia or hypercapnia Status: Acute Assessment and Plan: Acute respiratory failure likely related to encephalopathy from possible aspiration and intubated on 09/12. Off sedation since 09/15. CXR today showing clear lungs. Unable to wean from the ventilator due to her mental status. Tracheostomy and PEG placed on 09/22/22. Vent management per expansion joint builder. Plan for LTAC placement. (3) Septic shock: Code(s): A41.9 - Sepsis, unspecified organism; R65.21 - Severe sepsis with septic shock Status: Acute Assessment and Plan: Septic shock likely related to pneumonia, UTI. Patient was adequately fluid resuscitated in the ER and ICU. She is off all vasopressors since 09/13. -09/12/2022: Echo EF of 60-65%, LV chamber dimension is normal, grade 1 diastolic dysfunction, RV systolic function is reduced, trace mitral and trace tricuspid valve regurgitation. Small anterior pericardial effusion -BCx 09/12: negative -UCx 09/12: negative -Mycoplasma IgM and Legionella and Strept urine Ag 09/12: negative -MRSA Screen 09/12: negative -Sputum Cx 09/12: negative She completed a 7 day course of appropriate abx. Resolved (4) Acute renal failure: Qualifiers: Acute renal failure type: unspecified Qualified Code(s): N17.9 - Acute kidney failure, unspecified Code(s): N17.9 - Acute kidney failure, unspecified Status: Acute Assessment and Plan: Acute renal failure likely related to dehydration, hypotension, septic shock, ATN, infection, and/or medication (KALEIGH-inhibitor and Celebrex use at home). Cr 2.9 on admission. Urine lytes c/w prerenal. -CK levels were mildly elevated -09/12 renal ultrasound: Bladder decompressed by a Brandon catheter and therefore not well evaluated. Otherwise, unremarkable renal sonogram findings. No evidence of hydronephrosis. -patient received adequate amount of IV fluid -urine output improved. Creatinine has normalized Continue to monitor electrolytes, renal function and urine output (5) Acute hypernatremia: Code(s): E87.0 - Hyperosmolality and hypernatremia Status: Acute Assessment and Plan: Acute hypernatremia likely related to decreased p.o. intake, dehydration, free water loss, and/or insensible water loss -sodium 165 on admission 09/12 -patient received adequate IV fluids -initially was on normal saline maintenance fluids which was switched to D5W per nephrology to treat her hyponatremia -09/15: Sodium levels 144 so D5W discontinued -Sodium levels remained stable and normal Appreciate Nephrology evaluation and recommendations (6) [place]
--- NOTE | 2022-09-23 11:19 | WPDANESPN ---
Anes - Prog Note Post-Op Date/Time: 09/23/22 11:19 Cardiovascular status: normal Respiratory status: normal Airway patency: baseline Mental status: baseline Post-Op hydration status: normal Vital Signs: Last Vital Signs Temp 99.2 F 09/23/22 10:15 Pulse 83 09/23/22 10:15 Resp 23 H 09/23/22 10:15 BP 106/62 09/23/22 10:01 Pulse Ox 97 09/23/22 10:15 O2 Del Method Mechanical Ventilation 09/23/22 10:09 FiO2 30 09/23/22 10:09 Pain Score (VAS): 0 I/O: Intake & Output 09/22/22 09/23/22 09/23/22 23:59 07:59 15:59 Intake Total 200 405 Output Total 450 375 Balance -250 30 Laboratory Tests 09/23/22 05:14 09/23/22 05:14 09/22/22 09/23/22 09/23/22 17:20 00:09 04:45 WBC RBC Hgb Hct MCV MCH MCHC RDW Plt Count MPV Puncture Site Left radial ABG pH 7.510 H* ABG pCO2 35.9 ABG pO2 73.2 L ABG PO2/FiO2 Ratio 2.93 ABG HCO3 28.0 H ABG O2 Saturation 96.0 ABG O2 Content 17.7 ABG Base Excess 5.0 A-a Gradient 62.4 Oxyhemoglobin 94.3 Carboxyhemoglobin 0.0 Methemoglobin 0.4 Reduced Hemoglobin 5.3 H Total Hemoglobin 13.3 O2 Delivery Device Ventilator O2 Liters/Min Not Reportable Minute Volume Not Reportable Vent Rate 18 Vent Mode Cmv FiO2 25 Tidal Volume 400 PEEP 5 Peak Inspir Pressure Not Reportable Pressure Support Not Reportable Sodium Potassium Chloride Carbon Dioxide Anion Gap BUN Creatinine Estim Creat Clear Calc Estimated GFR Glucose POC Capillary Glucose 106 H 105 Calcium Magnesium Total Bilirubin AST ALT Alkaline Phosphatase Total Protein Albumin 09/23/22 09/23/22 05:14 06:08 WBC 10.8 H RBC 3.68 L Hgb 12.0 Hct 36.9 L MCV 100.3 H MCH 32.6 MCHC 32.5 RDW 15.5 H Plt Count 314 MPV 10.6 H Puncture Site ABG pH ABG pCO2 ABG pO2 ABG PO2/FiO2 Ratio ABG HCO3 ABG O2 Saturation ABG O2 Content ABG Base Excess A-a Gradient Oxyhemoglobin Carboxyhemoglobin Methemoglobin Reduced Hemoglobin Total Hemoglobin O2 Delivery Device O2 Liters/Min Minute Volume Vent Rate Vent Mode FiO2 Tidal Volume PEEP Peak Inspir Pressure Pressure Support Sodium 139 Potassium 3.4 Chloride 103 Carbon Dioxide 33 H Anion Gap 3 L BUN 20 H Creatinine 0.40 L Estim Creat Clear Calc 172 Estimated GFR > 60 Glucose 127 H POC Capillary Glucose 139 H Calcium 9.3 Magnesium 2.4 H Total Bilirubin 0.9 AST 88 H ALT 180 H Alkaline Phosphatase 101 Total Protein 7.0 Albumin 3.8 Post-procedural complaints: none Patient Feedback: Patient satisfied with anesthetic care.
[2022-09-23 12:03] LABS: Glucose Point of Care 143 mg/dl (65-105)
[2022-09-23 17:37] LABS: Glucose Point of Care 139 mg/dl (65-105)
[2022-09-24] VITALS (43 sets, daily range): BP systolic 97–133; BP diastolic 56–79; PULSE 73–100; RESP 18–28; TEMP 36.2–37.8; O2SAT 98–100
[2022-09-24 00:24] LABS: Glucose Point of Care 124 mg/dl (65-105)
[2022-09-24 04:49] LABS: Alveolar/Arterial O2 Gradient 82.9 mmHg; Base Excess ABG 4.2 mEq/l (+/-2.0); Carboxyhemoglobin 0.1 % THb (0-2.0); Fractional Inspired Oxygen 30 %; HCO3 ABG 28.4 mEq/l (22.0-26.0); Methemoglobin ABG 0.3 %THb (0-1.5); Oxygen Content ABG 18.2 %vol (16.0-22.0); Oxygen Saturation ABG 96.6 % (95.0-100.0); Oxyhemoglobin 95.5 % THb (90.0-100.0); PCO2 ABG 41.1 mmHg (35.0-45.0); PO2 ABG 82.7 mmHg (80.0-100.0); PO2 FiO2 Ratio Arterial Blood 2.76 %; Reduced Hemoglobin 4.1 %THb (0-5.0); Total Hemoglobin 13.5 g/dL (12.0-18.0); pH ABG 7.457 (7.350-7.450)
[2022-09-24 04:50] LABS: Arterial Blood Gas Ventilator rate 18 /MIN; Device VENTILATOR; Modified Allen's Test Pass; Site Drawn RIGHT RADIAL
[2022-09-24 04:51] LABS: Arterial Blood Gas PEEP 5 cmH2O; Arterial Blood Gas Tidal Volume 360 ml; Arterial Blood Gas Vent Mode CMV
[2022-09-24 05:24] LABS: Hematocrit 34.7 % (37.0-47.0); Mean Corpuscular HGB Conc 31.7 g/dl (32-36); Mean Corpuscular Hemoglobin 32.3 pg (26-34); Mean Corpuscular Volume 101.8 fl (80-100); Mean Platelet Volume 10.5 fl (7.4-10.4); Platelet Count Result 270 k/mm3 (150-375); Red Blood Count 3.41 M/mm3 (4.2-5.4); Red Cell Distribution Width 15.6 % (11.5-14.5); White Blood Count 9.5 K/mm3 (4.5-10.0)
[2022-09-24 05:38] LABS: Alanine Aminotransferase 134 U/L (6-35); Albumin Level 3.5 g/dL (3.5-5.1); Alkaline Phosphatase 95 U/L (38-126); Anion Gap 0 mmol/L (8-16); Aspartate Amino Transferase 57 U/L (14-36); Bilirubin,Total 0.9 mg/dL (0.2-1.3); Blood Urea Nitrogen 20 mg/dL (7-17); Calcium 9.1 mg/dL (8.4-10.2); Carbon Dioxide 35 mmol/L (22-30); Chloride 105 mmol/L (98-107); Estimated CRCL calculation 171 ml/min; Estimated Glomerular Filt Rate > 60; Glucose 127 mg/dL (65-110); Magnesium 2.4 mg/dL (1.6-2.3); Sodium 140 mmol/L (137-145)
[2022-09-24] MEDS: CENTRAL LINE FLUSH 10 ML IV PUSH ×4 (05:41→20:54)
--- NOTE | 2022-09-24 08:30 | P.PNINT_ITS ---
Progress Note: A&P Assessment and Plan (1) Encephalopathy: Code(s): G93.40 - Encephalopathy, unspecified Status: Acute Assessment and Plan: Encephalopathy likely multifactorial -anoxic injury, hypernatremia, hypotension, septic shock/infection, recent history of CVA, -off all sedation for many days -09/15 EEG: Abnormal record due to the presence of bihemispheric delta activity without evidence of any paroxysmal discharge.? These abnormalities are consistent with diffuse organic or metabolic encephalopathy without evidence of any electrical seizures. -head CT 09/16 IMPRESSION:? 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 Merino, who stated that the EEG was not favorable and that she may have had some hypoxic injury -unable to obtain MRI on a mechanically ventilated patient and Wally although this would likely not change treatment or prognosis at this time 09/20 patient appears to be having myoclonic jerking. Repeat EEG This is an abnormal routine EEG due to the presence of diffuse slowing of background and occasional triphasic waves. These findings can be seen in the setting of metabolic encephalopathy. There are no electrographic seizures noted. Clinical correlation is recommended. Continue Keppra (2) Acute respiratory failure: Qualifiers: Respiratory failure complication: unspecified whether with hypoxia or hypercapnia Qualified Code(s): J96.00 - Acute respiratory failure, unspecified whether with hypoxia or hypercapnia Code(s): J96.00 - Acute respiratory failure, unspecified whether with hypoxia or hypercapnia Status: Acute Assessment and Plan: Acute respiratory failure likely related to encephalopathy, possible aspiration, airway protection -intubated on 09/12/2022 -currently on ASV mode of ventilation, peep of 8, 30% FiO2 -ABGs reviewed, O2 to maintain O2 sats > 92% -chest x-ray this morning: Small left pleural effusion with minimal left basilar airspace opacity and stable right basilar airspace opacity, atelectasis versus pneumonia -continue bronchodilators -off all sedation since 09/15 -unable to wean from the ventilator due to her mental status. Patient tolerates PSV 10/5 but will not be able to protect her airway. - 09/22 tracheostomy done -she tolerated pressure support for few hours before getting tachypneic and was placed back on CMV. I will place patient on pressure support 01/04 again today and continue as tolerated (3) Septic shock: Code(s): A41.9 - Sepsis, unspecified organism; R65.21 - Severe sepsis with septic shock Status: Acute Assessment and Plan: RESOLVED Septic shock likely related to pneumonia, UTI -patient was adequately resuscitated in the ER and ICU. -OFF all vasopressors -09/12: blood cultures - no growth 05/04 bottles -09/12: urine cultures -negative -09/12: MRSA screen is negative -09/12 sputum culture: Specimen is liability claims representative of lower respiratory tract. -continue cefepime, Flagyl (09/12) for total of 7 days -vancomycin was discontinued on 09/12 -09/12/2022: Echocardiogram showed EF of 60-65%, LV chamber dimension is normal, grade 1 diastolic dysfunction, RV systolic function is reduced, trace mitral and trace tricuspid valve regurgitation. Small anterior pericardial effusion (4) Acute renal failure: Qualifiers: Acute renal failure type: unspecified Qualified Code(s): N17.9 - Acute
[2022-09-24] MEDS: PANTOPRAZOLE SODIUM IV 40 MG VIAL IV PUSH (08:58)
[2022-09-24] MEDS: levETIRAcetam 500MG/NACL 100ML 500 MG/100 ML BAG 400 MG IVPB ×2 (08:58→20:54)
[2022-09-24] MEDS: MINERAL OIL/WHITE PETROLATUM OINTMENT 1 APPLIC EACH EYE ×2 (08:59→20:54)
[2022-09-24] MEDS: APIXABAN 5 MG TABLET PO ×2 (08:59→20:54)
[2022-09-24] MEDS: polyethylene glycoL 3350 17 GM POWD.PACK PO (09:01)
--- NOTE | 2022-09-24 10:03 | PM.IMPN ---
Progress Note: A&P Assessment and Plan (1) Encephalopathy: Code(s): G93.40 - Encephalopathy, unspecified Status: Acute Assessment and Plan: Encephalopathy likely multifactorial from hypernatremia, hypotension, septic shock/infection, recent history of CVA and brain swelling noted by CT from hypoxia. She has been off sedation since 09/15. -Head CT 09/12: evolving Rt MCA CVA. -EEG 09/15: Abnormal record due to the presence of bihemispheric delta activity without evidence of any paroxysmal discharge.? These abnormalities are consistent with diffuse organic or metabolic encephalopathy without evidence of any electrical seizures -Repeat Head CT 09/16: Effacement of the cortical sulci bilaterally consistent with brain swelling. -Neurology stated that the EEG was not favorable and that she may have had some hypoxic injury -Unable to obtain MRI -patient appeared to be having myoclonic jerking but repeat EEG 09/21 showing diffuse slowing but no electrographic seizures noted. -no cognitive improvement noted Continue juliane. (2) Acute respiratory failure: Qualifiers: Respiratory failure complication: unspecified whether with hypoxia or hypercapnia Qualified Code(s): J96.00 - Acute respiratory failure, unspecified whether with hypoxia or hypercapnia Code(s): J96.00 - Acute respiratory failure, unspecified whether with hypoxia or hypercapnia Status: Acute Assessment and Plan: Acute respiratory failure likely related to encephalopathy from possible aspiration and intubated on 09/12. Off sedation since 09/15. CXR today showing clear lungs. Unable to wean from the ventilator due to her mental status. Tracheostomy and PEG placed on 09/22/22. Vent management per pathologist assistant. Plan for LTAC placement. (3) Septic shock: Code(s): A41.9 - Sepsis, unspecified organism; R65.21 - Severe sepsis with septic shock Status: Acute Assessment and Plan: Septic shock likely related to pneumonia, UTI. Patient was adequately fluid resuscitated in the ER and ICU. She is off all vasopressors since 09/13. -09/12/2022: Echo EF of 60-65%, LV chamber dimension is normal, grade 1 diastolic dysfunction, RV systolic function is reduced, trace mitral and trace tricuspid valve regurgitation. Small anterior pericardial effusion -BCx 09/12: negative -UCx 09/12: negative -Mycoplasma IgM and Legionella and Strept urine Ag 09/12: negative -MRSA Screen 09/12: negative -Sputum Cx 09/12: negative She completed a 7 day course of appropriate abx. Low grade fever the other day but resolved. Follow (4) Acute renal failure: Qualifiers: Acute renal failure type: unspecified Qualified Code(s): N17.9 - Acute kidney failure, unspecified Code(s): N17.9 - Acute kidney failure, unspecified Status: Acute Assessment and Plan: Acute renal failure likely related to dehydration, hypotension, septic shock, ATN, infection, and/or medication (KALEIGH-inhibitor and Celebrex use at home). Cr 2.9 on admission. Urine lytes c/w prerenal. -CK levels were mildly elevated -09/12 renal ultrasound: Bladder decompressed by a Brandon catheter and therefore not well evaluated. Otherwise, unremarkable renal sonogram findings. No evidence of hydronephrosis. -patient received adequate amount of IV fluid -urine output improved. Creatinine has normalized Continue to monitor electrolytes, renal function and urine output (5) Acute hypernatremia: Code(s): E87.0 - Hyperosmolality and hypernatremia Status: Acute Assessment and Plan: Acute hypernatremia likely related to decreased p.o. intake, dehydration, free water loss, and/or insensible water loss -sodium 165 on admission 09/12 -patient received adequate IV fluids -initially was on normal saline maintenance fluids which was switched to D5W per nephrology to treat her hyponatremia -09/15: Sodium levels 144 so D5W discontinued -Sodium levels remained stable and normal
[2022-09-24 11:56] LABS: Glucose Point of Care 121 mg/dl (65-105)
[2022-09-24 18:25] LABS: Glucose Point of Care 123 mg/dl (65-105)
[2022-09-24] MEDS: LEVALBUTEROL NEB 1.25 MG/3 ML 0.63 MG INHALATION (20:03)
[2022-09-24] MEDS: IPRATROPIUM BR 0.02% INH SOLN 0.5 MG/2.5 ML VIAL INHALATION (20:04)
[2022-09-24] MEDS: ACETAMINOPHEN 325 MG TABLET 650 MG FEED TUBE (20:54)
[2022-09-25] VITALS (76 sets, daily range): BP systolic 99–145; BP diastolic 63–85; PULSE 48–107; RESP 15–26; TEMP 36.1–37.7; O2SAT 97–100; BMI 41.1
[2022-09-25 00:12] LABS: Glucose Point of Care 125 mg/dl (65-105)
[2022-09-25] MEDS: LEVALBUTEROL NEB 1.25 MG/3 ML 0.63 MG INHALATION (02:33)
[2022-09-25] MEDS: IPRATROPIUM BR 0.02% INH SOLN 0.5 MG/2.5 ML VIAL INHALATION (02:33)
[2022-09-25 05:04] LABS: Hematocrit 30.7 % (37.0-47.0); Hemoglobin 9.7 g/dL (12.0-15.0); Mean Corpuscular HGB Conc 31.6 g/dl (32-36); Mean Corpuscular Volume 101.3 fl (80-100); Mean Platelet Volume 9.8 fl (7.4-10.4); Platelet Count Result 218 k/mm3 (150-375); Red Blood Count 3.03 M/mm3 (4.2-5.4); Red Cell Distribution Width 15.4 % (11.5-14.5); White Blood Count 6.9 K/mm3 (4.5-10.0)
[2022-09-25 05:13] LABS: Alanine Aminotransferase 91 U/L (6-35); Albumin Level 3.1 g/dL (3.5-5.1); Alkaline Phosphatase 81 U/L (38-126); Anion Gap 2 mmol/L (8-16); Aspartate Amino Transferase 46 U/L (14-36); Bilirubin,Total 0.8 mg/dL (0.2-1.3); Blood Urea Nitrogen 18 mg/dL (7-17); Calcium 8.8 mg/dL (8.4-10.2); Carbon Dioxide 33 mmol/L (22-30); Chloride 103 mmol/L (98-107); Estimated CRCL calculation 215 ml/min; Estimated Glomerular Filt Rate > 60; Glucose 135 mg/dL (65-110); Magnesium 2.2 mg/dL (1.6-2.3); Potassium 3.8 mmol/L (3.4-5.0); Sodium 138 mmol/L (137-145)
[2022-09-25] MEDS: CENTRAL LINE FLUSH 10 ML IV PUSH ×4 (06:09→20:37)
--- NOTE | 2022-09-25 08:19 | WPDINTPN ---
Progress Note: A&P Assessment and Plan (1) Encephalopathy: Code(s): G93.40 - Encephalopathy, unspecified Status: Acute Assessment and Plan: Encephalopathy likely multifactorial -anoxic injury, hypernatremia, hypotension, septic shock/infection, recent history of CVA, -off all sedation for many days -09/15 EEG: Abnormal record due to the presence of bihemispheric delta activity without evidence of any paroxysmal discharge.? These abnormalities are consistent with diffuse organic or metabolic encephalopathy without evidence of any electrical seizures. -head CT 09/16 IMPRESSION:? 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 Merino, who stated that the EEG was not favorable and that she may have had some hypoxic injury -unable to obtain MRI on a mechanically ventilated patient and Wally although this would likely not change treatment or prognosis at this time 09/20 patient appears to be having myoclonic jerking. Repeat EEG This is an abnormal routine EEG due to the presence of diffuse slowing of background and occasional triphasic waves. These findings can be seen in the setting of metabolic encephalopathy. There are no electrographic seizures noted. Clinical correlation is recommended. Continue Keppra (2) Acute respiratory failure: Qualifiers: Respiratory failure complication: unspecified whether with hypoxia or hypercapnia Qualified Code(s): J96.00 - Acute respiratory failure, unspecified whether with hypoxia or hypercapnia Code(s): J96.00 - Acute respiratory failure, unspecified whether with hypoxia or hypercapnia Status: Acute Assessment and Plan: Acute respiratory failure likely related to encephalopathy, possible aspiration, airway protection -intubated on 09/12/2022 -currently on ASV mode of ventilation, peep of 8, 30% FiO2 -ABGs reviewed, O2 to maintain O2 sats > 92% -chest x-ray this morning: Small left pleural effusion with minimal left basilar airspace opacity and stable right basilar airspace opacity, atelectasis versus pneumonia -continue bronchodilators -off all sedation since 09/15 -unable to wean from the ventilator due to her mental status. Patient tolerates PSV 10/5 but will not be able to protect her airway. - 09/22 tracheostomy done -she tolerated pressure support for few hours before getting tachypneic and was placed back on CMV. - I will place patient on pressure support / again today and continue as tolerated (3) Septic shock: Code(s): A41.9 - Sepsis, unspecified organism; R65.21 - Severe sepsis with septic shock Status: Acute Assessment and Plan: RESOLVED Septic shock likely related to pneumonia, UTI -patient was adequately resuscitated in the ER and ICU. -OFF all vasopressors -09/12: blood cultures - no growth 05/04 bottles -09/12: urine cultures -negative -09/12: MRSA screen is negative -09/12 sputum culture: Specimen is herbicide service sales representative of lower respiratory tract. -continue cefepime, Flagyl (09/12) for total of 7 days -vancomycin was discontinued on 09/12 -09/12/2022: Echocardiogram showed EF of 60-65%, LV chamber dimension is normal, grade 1 diastolic dysfunction, RV systolic function is reduced, trace mitral and trace tricuspid valve regurgitation. Small anterior pericardial effusion (4) Acute renal failure: Qualifiers: Acute renal failure type: unspecified Qualified Code(s): N17.9 - Acute kidney failure, unspecified Code(s): N17.9 - Acute kidney failure, unspecified Status: Acute Assessment and Plan: RESOLVED Acute renal failure likely related to dehydration, hypotension, septic shock, ATN, infection, KALEIGH-inhibitor and Celebrex use at home Celebrex -urine lytes with prerenal
[2022-09-25] MEDS: PANTOPRAZOLE SODIUM IV 40 MG VIAL IV PUSH (08:38)
[2022-09-25] MEDS: levETIRAcetam 500MG/NACL 100ML 500 MG/100 ML BAG 400 MG IVPB ×2 (08:38→20:36)
[2022-09-25] MEDS: APIXABAN 5 MG TABLET PO ×2 (08:38→20:35)
[2022-09-25] MEDS: MINERAL OIL/WHITE PETROLATUM OINTMENT 1 APPLIC EACH EYE ×2 (08:38→20:36)
--- NOTE | 2022-09-25 10:10 | PCFNICU ---
Addendum entered by Joelle Waldrop, RD, LDN 09/25/22 10:25: Recommend discontinuing Prosource TF supplement as pt will be meeting 100% estimated protein needs with modification to TF order. Original Note: ICU Rounding Note: Pt current nutrition is Vital 1.2 @ 70 ml/h with flushes 30 ml q 4 hours. 1889 kcal, 116 g protein, 1249 ml free water. +1 Prosource 90 kcal, 20 g protein. Nutrition recommendation: Modify tube feeding to Jevity 1.5 @ 65 ml/h: 2145 kcal, 91 g protein, 1087 ml free water. Flush 150 ml free water q 4 hours. Total free water 1990 ml/day. Meets 100% EER and 100% estimated protein needs. Last recorded weight is 115.5 kg. Bowel Motility: +1 09/25/22 Labs Reviewed: Hgb 9.7, Hct 30.7, Alb 3.1, BUN 18, Cre 0.3 Meds Noted: Keppra Skin: WNL Additional Notes: Pt had trach and PEG placed Sunday09/22/22. No longer needs specialty formula, appropriate to use standard formula. Pt to transfer to LTAC soon. Following daily in ICU rounds. Will monitor weight, labs, tube feedings toleraance every Sunday and Sunday..
--- NOTE | 2022-09-25 10:55 | PM.IMPN ---
Progress Note: A&P Assessment and Plan (1) Encephalopathy: Code(s): G93.40 - Encephalopathy, unspecified Status: Acute Assessment and Plan: Encephalopathy likely multifactorial from hypernatremia, hypotension, septic shock/infection, recent history of CVA and brain swelling noted by CT from hypoxia. She has been off sedation since 09/15. -Head CT 09/12: evolving Rt MCA CVA. -EEG 09/15: Abnormal record due to the presence of bihemispheric delta activity without evidence of any paroxysmal discharge.? These abnormalities are consistent with diffuse organic or metabolic encephalopathy without evidence of any electrical seizures -Repeat Head CT 09/16: Effacement of the cortical sulci bilaterally consistent with brain swelling. -Neurology stated that the EEG was not favorable and that she may have had some hypoxic injury -Unable to obtain MRI -patient appeared to be having myoclonic jerking but repeat EEG 09/21 showing diffuse slowing but no electrographic seizures noted. -no cognitive improvement noted Continue juliane. (2) Acute respiratory failure: Qualifiers: Respiratory failure complication: unspecified whether with hypoxia or hypercapnia Qualified Code(s): J96.00 - Acute respiratory failure, unspecified whether with hypoxia or hypercapnia Code(s): J96.00 - Acute respiratory failure, unspecified whether with hypoxia or hypercapnia Status: Acute Assessment and Plan: Acute respiratory failure likely related to encephalopathy from possible aspiration and intubated on 09/12. Off sedation since 09/15. CXR today showing clear lungs. Unable to wean from the ventilator due to her mental status. Tracheostomy and PEG placed on 09/22/22. Vent management per auto cleaner. Plan for LTAC placement. (3) Septic shock: Code(s): A41.9 - Sepsis, unspecified organism; R65.21 - Severe sepsis with septic shock Status: Acute Assessment and Plan: Septic shock likely related to pneumonia, UTI. Patient was adequately fluid resuscitated in the ER and ICU. She is off all vasopressors since 09/13. -09/12/2022: Echo EF of 60-65%, LV chamber dimension is normal, grade 1 diastolic dysfunction, RV systolic function is reduced, trace mitral and trace tricuspid valve regurgitation. Small anterior pericardial effusion -BCx 09/12: negative -UCx 09/12: negative -Mycoplasma IgM and Legionella and Strept urine Ag 09/12: negative -MRSA Screen 09/12: negative -Sputum Cx 09/12: negative She completed a 7 day course of appropriate abx. No further fevers. Change out TLC for PICC. Follow (4) Acute renal failure: Qualifiers: Acute renal failure type: unspecified Qualified Code(s): N17.9 - Acute kidney failure, unspecified Code(s): N17.9 - Acute kidney failure, unspecified Status: Acute Assessment and Plan: Acute renal failure likely related to dehydration, hypotension, septic shock, ATN, infection, and/or medication (KALEIGH-inhibitor and Celebrex use at home). Cr 2.9 on admission. Urine lytes c/w prerenal. -CK levels were mildly elevated -09/12 renal ultrasound: Bladder decompressed by a Brandon catheter and therefore not well evaluated. Otherwise, unremarkable renal sonogram findings. No evidence of hydronephrosis. -patient received adequate amount of IV fluid -urine output improved. Creatinine has normalized GIOVANNA Resolved. Continue to monitor electrolytes, renal function and urine output (5) Acute hypernatremia: Code(s): E87.0 - Hyperosmolality and hypernatremia Status: Acute Assessment and Plan: Acute hypernatremia likely related to decreased p.o. intake, dehydration, free water loss, and/or insensible water loss -sodium 165 on admission 09/12 -patient received adequate IV fluids -initially was on normal saline maintenance fluids which was switched to D5W per nephrology to treat her hyponatremia -09/15: Sodium levels 144 so D5W discontinued -Sodium levels remained stabl
[2022-09-25 12:21] LABS: Glucose Point of Care 103 mg/dl (65-105)
[2022-09-25 17:46] LABS: Glucose Point of Care 97 mg/dl (65-105)
[2022-09-25 23:59] LABS: Glucose Point of Care 109 mg/dl (65-105)
[2022-09-26] VITALS (23 sets, daily range): BP systolic 121–139; BP diastolic 61–83; PULSE 76–106; RESP 13–29; TEMP 37.2–37.6; O2SAT 92–100
[2022-09-26 04:36] LABS: Hematocrit 31.9 % (37.0-47.0); Hemoglobin 10.3 g/dL (12.0-15.0); Mean Corpuscular HGB Conc 32.3 g/dl (32-36); Mean Corpuscular Hemoglobin 32.7 pg (26-34); Mean Corpuscular Volume 101.3 fl (80-100); Mean Platelet Volume 10.2 fl (7.4-10.4); Platelet Count Result 234 k/mm3 (150-375); Red Blood Count 3.15 M/mm3 (4.2-5.4); Red Cell Distribution Width 15.2 % (11.5-14.5); White Blood Count 6.3 K/mm3 (4.5-10.0)
[2022-09-26 04:47] LABS: Alanine Aminotransferase 100 U/L (6-35); Albumin Level 3.3 g/dL (3.5-5.1); Alkaline Phosphatase 84 U/L (38-126); Anion Gap 6 mmol/L (8-16); Aspartate Amino Transferase 52 U/L (14-36); Bilirubin,Total 0.7 mg/dL (0.2-1.3); Blood Urea Nitrogen 15 mg/dL (7-17); Calcium 9.3 mg/dL (8.4-10.2); Carbon Dioxide 30 mmol/L (22-30); Chloride 101 mmol/L (98-107); Estimated CRCL calculation 170 ml/min; Estimated Glomerular Filt Rate > 60; Glucose 143 mg/dL (65-110); Magnesium 2.2 mg/dL (1.6-2.3); Potassium 3.7 mmol/L (3.4-5.0); Sodium 137 mmol/L (137-145)
[2022-09-26] MEDS: CENTRAL LINE FLUSH 10 ML IV PUSH (05:41)
[2022-09-26] MEDS: MINERAL OIL/WHITE PETROLATUM OINTMENT 1 APPLIC EACH EYE ×2 (08:26→20:31)
[2022-09-26] MEDS: levETIRAcetam 500MG/NACL 100ML 500 MG/100 ML BAG 400 MG IVPB ×2 (08:26→20:32)
[2022-09-26] MEDS: PANTOPRAZOLE SODIUM IV 40 MG VIAL IV PUSH (08:26)
[2022-09-26] MEDS: polyethylene glycoL 3350 17 GM POWD.PACK PO (08:26)
[2022-09-26] MEDS: APIXABAN 5 MG TABLET PO ×2 (08:27→20:32)
--- NOTE | 2022-09-26 09:17 | WPDINTPN ---
Progress Note: A&P Assessment and Plan (1) Encephalopathy: Code(s): G93.40 - Encephalopathy, unspecified Status: Acute Assessment and Plan: Encephalopathy likely multifactorial -anoxic injury, hypernatremia, hypotension, septic shock/infection, recent history of CVA, -off all sedation for many days -09/15 EEG: Abnormal record due to the presence of bihemispheric delta activity without evidence of any paroxysmal discharge.? These abnormalities are consistent with diffuse organic or metabolic encephalopathy without evidence of any electrical seizures. -Head CT 09/16 IMPRESSION:? 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 Merino, who stated that the EEG was not favorable and that she may have had some hypoxic injury -unable to obtain MRI on a mechanically ventilated patient and Wally although this would likely not change treatment or prognosis at this time 09/20 patient appears to be having myoclonic jerking. Repeat EEG This is an abnormal routine EEG due to the presence of diffuse slowing of background and occasional triphasic waves. These findings can be seen in the setting of metabolic encephalopathy. There are no electrographic seizures noted. Clinical correlation is recommended. Continue Keppra (2) Acute respiratory failure: Qualifiers: Respiratory failure complication: unspecified whether with hypoxia or hypercapnia Qualified Code(s): J96.00 - Acute respiratory failure, unspecified whether with hypoxia or hypercapnia Code(s): J96.00 - Acute respiratory failure, unspecified whether with hypoxia or hypercapnia Status: Acute Assessment and Plan: Acute respiratory failure likely related to encephalopathy, possible aspiration, airway protection -intubated on 09/12/2022 Patient has been tolerating pressure support ventilation 10/5 on days and CMV mode of ventilation at night. 30% FiO2 and peep of 5 -continue bronchodilators -off all sedation since 09/15 -unable to wean from the ventilator due to her mental status and unable to protect her airway. - 09/22 tracheostomy done -will continue to place her on pressure support ventilation during the day and CMV mode at night (3) Septic shock: Code(s): A41.9 - Sepsis, unspecified organism; R65.21 - Severe sepsis with septic shock Status: Acute Assessment and Plan: RESOLVED Septic shock likely related to pneumonia, UTI -patient was adequately resuscitated in the ER and ICU. -OFF all vasopressors -09/12: blood cultures - no growth / bottles -09/12: urine cultures -negative -09/12: MRSA screen is negative -09/12 sputum culture: Specimen is sales representative uniforms of lower respiratory tract. -continue cefepime, Flagyl (09/12) for total of 7 days -vancomycin was discontinued on 09/12 -09/12/2022: Echocardiogram showed EF of 60-65%, LV chamber dimension is normal, grade 1 diastolic dysfunction, RV systolic function is reduced, trace mitral and trace tricuspid valve regurgitation. Small anterior pericardial effusion (4) Acute renal failure: Qualifiers: Acute renal failure type: unspecified Qualified Code(s): N17.9 - Acute kidney failure, unspecified Code(s): N17.9 - Acute kidney failure, unspecified Status: Acute Assessment and Plan: RESOLVED Acute renal failure likely related to dehydration, hypotension, septic shock, ATN, infection, KALEIGH-inhibitor and Celebrex use at home Celebrex -urine lytes with prerenal -CK levels were mildly elevated -09/12 renal ultrasound: Bladder decompressed by a Brandon catheter and therefore not well evaluated. Otherwise, unremarkable renal sonogram findings. No evidence of hydronephrosis. -patient received adequate amount of IV fluid -urine outpu
--- NOTE | 2022-09-26 10:37 | PM.IMPN ---
Progress Note: A&P Assessment and Plan (1) Encephalopathy: Code(s): G93.40 - Encephalopathy, unspecified Status: Acute Assessment and Plan: Encephalopathy likely multifactorial from hypernatremia, hypotension, septic shock/infection, recent history of CVA and brain swelling noted by CT from hypoxia. She has been off sedation since 09/15. -Head CT 09/12: evolving Rt MCA CVA. -EEG 09/15: Abnormal record due to the presence of bihemispheric delta activity without evidence of any paroxysmal discharge.? These abnormalities are consistent with diffuse organic or metabolic encephalopathy without evidence of any electrical seizures -Repeat Head CT 09/16: Effacement of the cortical sulci bilaterally consistent with brain swelling. -Neurology stated that the EEG was not favorable and that she may have had some hypoxic injury -Unable to obtain MRI -patient appeared to be having myoclonic jerking but repeat EEG 09/21 showing diffuse slowing but no electrographic seizures noted. -no cognitive improvement noted overall Continue [facility]. (2) Acute respiratory failure: Qualifiers: Respiratory failure complication: unspecified whether with hypoxia or hypercapnia Qualified Code(s): J96.00 - Acute respiratory failure, unspecified whether with hypoxia or hypercapnia Code(s): J96.00 - Acute respiratory failure, unspecified whether with hypoxia or hypercapnia Status: Acute Assessment and Plan: Acute respiratory failure likely related to encephalopathy from possible aspiration and intubated on 09/12. Off sedation since 09/15. CXR today showing clear lungs. Unable to wean from the ventilator due to her mental status. Tracheostomy and PEG placed on 09/22/22. Vent management per animal nurse. Plan for LTAC placement. (3) Septic shock: Code(s): A41.9 - Sepsis, unspecified organism; R65.21 - Severe sepsis with septic shock Status: Acute Assessment and Plan: Septic shock likely related to pneumonia, UTI. Patient was adequately fluid resuscitated in the ER and ICU. She is off all vasopressors since 09/13. -09/12/2022: Echo EF of 60-65%, LV chamber dimension is normal, grade 1 diastolic dysfunction, RV systolic function is reduced, trace mitral and trace tricuspid valve regurgitation. Small anterior pericardial effusion -BCx 09/12: negative -UCx 09/12: negative -Mycoplasma IgM and Legionella and Strept urine Ag 09/12: negative -MRSA Screen 09/12: negative -Sputum Cx 09/12: negative She completed a 7 day course of appropriate abx. No further fevers. Follow (4) Acute renal failure: Qualifiers: Acute renal failure type: unspecified Qualified Code(s): N17.9 - Acute kidney failure, unspecified Code(s): N17.9 - Acute kidney failure, unspecified Status: Acute Assessment and Plan: Acute renal failure likely related to dehydration, hypotension, septic shock, ATN, infection, and/or medication (KALEIGH-inhibitor and Celebrex use at home). Cr 2.9 on admission. Urine lytes c/w prerenal. -CK levels were mildly elevated -09/12 renal ultrasound: Bladder decompressed by a Brandon catheter and therefore not well evaluated. Otherwise, unremarkable renal sonogram findings. No evidence of hydronephrosis. -patient received adequate amount of IV fluid -urine output improved. Creatinine has normalized GIOVANNA Resolved. Continue to monitor electrolytes, renal function and urine output (5) Acute hypernatremia: Code(s): E87.0 - Hyperosmolality and hypernatremia Status: Acute Assessment and Plan: Acute hypernatremia likely related to decreased p.o. intake, dehydration, free water loss, and/or insensible water loss -sodium 165 on admission 09/12 -patient received adequate IV fluids -initially was on normal saline maintenance fluids which was switched to D5W per nephrology to treat her hyponatremia -09/15: Sodium levels 144 so D5W discontinued -Sodium levels remained stable and normal -A
--- NOTE | 2022-09-26 11:33 | PCNFU ---
Nutrition Follow-Up Complete: Inadequate Oral Intake as related to mechanical vent as evidenced by NPO. Goal: Meet estimated nutritional needs Patient is progressing towards goal. We will continue current goal. Pt current nutrition is Jevity 1.5 at 65 ml/hr. Last recorded weight is 115.8 kg. Bowel Motility:+BM reported 09/25 Labs Reviewed:Glu 143, Cr 0.4, Alb 3.3 Meds Noted:Keppra, Protonix, Miralax Skin:WNL Additional Notes:Patient current with PEG and Trach. Tube feeding of Jevity 1.5 goal rate of 65 ml/hr with Flush 150 q 4 hours. Tolerating tube feedings per nursing. Total Nutrition: 2145 kcals/91 gms protein/1087 ml water. Tube feedings meeting 100% of needs at 25 kcal/kg ABW and 100% of protein needs at 1.5-1.6 gm/kg. Plans for LTAC, waiting placement. Will monitor weight, labs, tube feedings tolerance every Sunday and Sunday.
[2022-09-26 11:54] LABS: Glucose Point of Care 136 mg/dl (65-105)
[2022-09-26] MEDS: LEVALBUTEROL NEB 1.25 MG/3 ML 0.63 MG INHALATION (13:41)
[2022-09-26] MEDS: IPRATROPIUM BR 0.02% INH SOLN 0.5 MG/2.5 ML VIAL INHALATION (13:41)
[2022-09-26] MEDS: ACETAMINOPHEN 325 MG TABLET 650 MG FEED TUBE (17:20)
[2022-09-26 17:33] LABS: Glucose Point of Care 124 mg/dl (65-105)
[2022-09-27] VITALS (21 sets, daily range): BP systolic 102–137; BP diastolic 65–90; PULSE 66–112; RESP 19–26; TEMP 37.1–37.6; O2SAT 97–100
[2022-09-27 00:58] LABS: Glucose Point of Care 145 mg/dl (65-105)
[2022-09-27 04:29] LABS: Basophils Percent Auto 0.3 % (0.2-1.2); Hematocrit 34.6 % (37.0-47.0); Hemoglobin 11.2 g/dL (12.0-15.0); Immature Granulocyte Absolute 0.03 K/mm3 (0.00-0.031); Immature Granulocyte Percent A 0.4 % (0-0.5); Lymphocytes Absolute Auto 1.53 K/mm3 (0.9-3.2); Lymphocytes Percent Auto 22.8 % (18.3-44.2); Mean Corpuscular HGB Conc 32.4 g/dl (32-36); Mean Corpuscular Hemoglobin 32.2 pg (26-34); Mean Corpuscular Volume 99.4 fl (80-100); Mean Platelet Volume 10.3 fl (7.4-10.4); Monocytes Absolute Auto 0.4 K/mm3 (0.1-0.6); Monocytes Percent Auto 6.4 % (2.6-8.5); Neutrophils Absolute Auto 4.7 K/mm3 (1.3-6.7); Neutrophils Percent Auto 70.1 % (45.5-73.1); Platelet Count Result 257 k/mm3 (150-375); Red Blood Count 3.48 M/mm3 (4.2-5.4); Red Cell Distribution Width 14.9 % (11.5-14.5); White Blood Count 6.7 K/mm3 (4.5-10.0)
[2022-09-27 04:42] LABS: Alanine Aminotransferase 108 U/L (6-35); Albumin Level 3.7 g/dL (3.5-5.1); Alkaline Phosphatase 104 U/L (38-126); Anion Gap 5 mmol/L (8-16); Aspartate Amino Transferase 56 U/L (14-36); Bilirubin,Total 0.6 mg/dL (0.2-1.3); Blood Urea Nitrogen 13 mg/dL (7-17); Calcium 9.3 mg/dL (8.4-10.2); Carbon Dioxide 28 mmol/L (22-30); Chloride 102 mmol/L (98-107); Estimated CRCL calculation 218 ml/min; Estimated Glomerular Filt Rate > 60; Glucose 144 mg/dL (65-110); Magnesium 2.2 mg/dL (1.6-2.3); Potassium 3.9 mmol/L (3.4-5.0); Sodium 135 mmol/L (137-145)
[2022-09-27] MEDS: FUROSEMIDE INJ 40 MG/4 ML VIAL 20 MG IV PUSH (08:29)
[2022-09-27] MEDS: MINERAL OIL/WHITE PETROLATUM OINTMENT 1 APPLIC EACH EYE ×2 (08:30→20:06)
[2022-09-27] MEDS: APIXABAN 5 MG TABLET PO ×2 (08:31→20:05)
[2022-09-27] MEDS: PANTOPRAZOLE SODIUM IV 40 MG VIAL IV PUSH (08:31)
[2022-09-27] MEDS: levETIRAcetam 500MG/NACL 100ML 500 MG/100 ML BAG 400 MG IVPB (08:32)
--- NOTE | 2022-09-27 11:45 | WPDINTPN ---
Progress Note: A&P Assessment and Plan (1) Encephalopathy: Code(s): G93.40 - Encephalopathy, unspecified Status: Acute Assessment and Plan: Encephalopathy likely multifactorial -anoxic injury, hypernatremia, hypotension, septic shock/infection, recent history of CVA, -off all sedation for many days -09/15 EEG: Abnormal record due to the presence of bihemispheric delta activity without evidence of any paroxysmal discharge.? These abnormalities are consistent with diffuse organic or metabolic encephalopathy without evidence of any electrical seizures. -Head CT 09/16 IMPRESSION:? 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 Merino, who stated that the EEG was not favorable and that she may have had some hypoxic injury -unable to obtain MRI on a mechanically ventilated patient and Wally although this would likely not change treatment or prognosis at this time 09/20 patient appears to be having myoclonic jerking. Repeat EEG This is an abnormal routine EEG due to the presence of diffuse slowing of background and occasional triphasic waves. These findings can be seen in the setting of metabolic encephalopathy. There are no electrographic seizures noted. Clinical correlation is recommended. Continue Keppra, will switch to liquid Keppra (2) Acute respiratory failure: Qualifiers: Respiratory failure complication: unspecified whether with hypoxia or hypercapnia Qualified Code(s): J96.00 - Acute respiratory failure, unspecified whether with hypoxia or hypercapnia Code(s): J96.00 - Acute respiratory failure, unspecified whether with hypoxia or hypercapnia Status: Acute Assessment and Plan: Acute respiratory failure likely related to encephalopathy, possible aspiration, airway protection -intubated on 09/12/2022 Patient has been tolerating pressure support ventilation 10/5 on days and CMV mode of ventilation at night. 30% FiO2 and peep of 5 -continue bronchodilators -off all sedation since 09/15 -unable to wean from the ventilator due to her mental status and unable to protect her airway. - 09/22 tracheostomy done -will continue to place her on pressure support ventilation during the day and CMV mode at night -will diurese with Lasix 20 mg IV x1 (3) Septic shock: Code(s): A41.9 - Sepsis, unspecified organism; R65.21 - Severe sepsis with septic shock Status: Acute Assessment and Plan: RESOLVED Septic shock likely related to pneumonia, UTI -patient was adequately resuscitated in the ER and ICU. -OFF all vasopressors -09/12: blood cultures - no growth / bottles -09/12: urine cultures -negative -09/12: MRSA screen is negative -09/12 sputum culture: Specimen is electroplating sales representative of lower respiratory tract. -continue cefepime, Flagyl (09/12) for total of 7 days -vancomycin was discontinued on 09/12 -09/12/2022: Echocardiogram showed EF of 60-65%, LV chamber dimension is normal, grade 1 diastolic dysfunction, RV systolic function is reduced, trace mitral and trace tricuspid valve regurgitation. Small anterior pericardial effusion (4) Acute renal failure: Qualifiers: Acute renal failure type: unspecified Qualified Code(s): N17.9 - Acute kidney failure, unspecified Code(s): N17.9 - Acute kidney failure, unspecified Status: Acute Assessment and Plan: RESOLVED Acute renal failure likely related to dehydration, hypotension, septic shock, ATN, infection, KALEIGH-inhibitor and Celebrex use at home Celebrex -urine lytes with prerenal -CK levels were mildly elevated -09/12 renal ultrasound: Bladder decompressed by a Brandon catheter and therefore not well evaluated. Otherwise, unremarkable renal sonogram findings. No evidence of hydronep
[2022-09-27 11:58] LABS: Glucose Point of Care 127 mg/dl (65-105)
--- NOTE | 2022-09-27 12:50 | P.PNIM_ITS ---
Progress Note: A&P Assessment and Plan (1) Encephalopathy: Code(s): G93.40 - Encephalopathy, unspecified Status: Acute Assessment and Plan: Encephalopathy likely multifactorial -anoxic injury, hypernatremia, hypotension, septic shock/infection, recent history of CVA, -off all sedation for many days -09/15 EEG: Abnormal record due to the presence of bihemispheric delta activity without evidence of any paroxysmal discharge.? These abnormalities are consistent with diffuse organic or metabolic encephalopathy without evidence of any electrical seizures. -Head CT 09/16 IMPRESSION:? 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 Merino, who stated that the EEG was not favorable and that she may have had some hypoxic injury -unable to obtain MRI on a mechanically ventilated patient and Wally although this would likely not change treatment or prognosis at this time 09/20 patient appears to be having myoclonic jerking. Repeat EEG This is an abnormal routine EEG due to the presence of diffuse slowing of background and occasional triphasic waves. These findings can be seen in the setting of metabolic encephalopathy. There are no electrographic seizures noted. Clinical correlation is recommended. Continue Keppra, will switch to liquid Keppra (2) Acute respiratory failure: Qualifiers: Respiratory failure complication: unspecified whether with hypoxia or hypercapnia Qualified Code(s): J96.00 - Acute respiratory failure, unspecified whether with hypoxia or hypercapnia Code(s): J96.00 - Acute respiratory failure, unspecified whether with hypoxia or hypercapnia Status: Acute Assessment and Plan: Acute respiratory failure likely related to encephalopathy, possible aspiration, airway protection -intubated on 09/12/2022 Patient has been tolerating pressure support ventilation 10/5 on days and CMV mode of ventilation at night. 30% FiO2 and peep of 5 -continue bronchodilators -off all sedation since 09/15 -unable to wean from the ventilator due to her mental status and unable to protect her airway. - 09/22 tracheostomy done -will continue to place her on pressure support ventilation during the day and CMV mode at night -will diurese with Lasix 20 mg IV x1 (3) Septic shock: Code(s): A41.9 - Sepsis, unspecified organism; R65.21 - Severe sepsis with septic shock Status: Acute Assessment and Plan: RESOLVED Septic shock likely related to pneumonia, UTI -patient was adequately resuscitated in the ER and ICU. -OFF all vasopressors -09/12: blood cultures - no growth / bottles -09/12: urine cultures -negative -09/12: MRSA screen is negative -09/12 sputum culture: Specimen is circulation sales representative of lower respiratory tract. -continue cefepime, Flagyl (09/12) for total of 7 days -vancomycin was discontinued on 09/12 -09/12/2022: Echocardiogram showed EF of 60-65%, LV chamber dimension is normal, grade 1 diastolic dysfunction, RV systolic function is reduced, trace mitral and trace tricuspid valve regurgitation. Small anterior pericardial effusion (4) Acute renal failure: Qualifiers: Acute renal failure type: unspecified Qualified Code(s): N17.9 - Acute kidney failure, unspecified Code(s): N17.9 - Acute kidney failure, unspecified Status: Acute Assessment and Plan: RESOLVED Acute renal failure likely relat
[2022-09-27 17:52] LABS: Glucose Point of Care 127 mg/dl (65-105)
[2022-09-27] MEDS: IPRATROPIUM BR 0.02% INH SOLN 0.5 MG/2.5 ML VIAL INHALATION (20:00)
[2022-09-27] MEDS: LEVALBUTEROL NEB 1.25 MG/3 ML 0.63 MG INHALATION (20:00)
[2022-09-27] MEDS: levETIRAcetam ORAL SOL 500 MG/5 ML UDC FEED TUBE (20:05)
[2022-09-28] VITALS (20 sets, daily range): BP systolic 99–150; BP diastolic 65–96; PULSE 55–105; RESP 18–26; TEMP 37.2–37.7; O2SAT 96–100
[2022-09-28 00:31] LABS: Glucose Point of Care 160 mg/dl (65-105)
[2022-09-28 04:36] LABS: Basophils Percent Auto 0.3 % (0.2-1.2); Immature Granulocyte Absolute 0.03 K/mm3 (0.00-0.031); Immature Granulocyte Percent A 0.5 % (0-0.5); Lymphocytes Absolute Auto 1.32 K/mm3 (0.9-3.2); Mean Corpuscular HGB Conc 33.3 g/dl (32-36); Mean Corpuscular Hemoglobin 32.5 pg (26-34); Mean Corpuscular Volume 97.6 fl (80-100); Mean Platelet Volume 10.4 fl (7.4-10.4); Monocytes Absolute Auto 0.5 K/mm3 (0.1-0.6); Monocytes Percent Auto 6.8 % (2.6-8.5); Neutrophils Absolute Auto 4.8 K/mm3 (1.3-6.7); Neutrophils Percent Auto 72.4 % (45.5-73.1); Platelet Count Result 273 k/mm3 (150-375); Red Blood Count 3.69 M/mm3 (4.2-5.4); Red Cell Distribution Width 14.8 % (11.5-14.5); White Blood Count 6.6 K/mm3 (4.5-10.0)
[2022-09-28 04:48] LABS: Alanine Aminotransferase 111 U/L (6-35); Albumin Level 3.8 g/dL (3.5-5.1); Alkaline Phosphatase 118 U/L (38-126); Anion Gap 2 mmol/L (8-16); Aspartate Amino Transferase 58 U/L (14-36); Bilirubin,Total 0.7 mg/dL (0.2-1.3); Blood Urea Nitrogen 16 mg/dL (7-17); Calcium 9.8 mg/dL (8.4-10.2); Carbon Dioxide 34 mmol/L (22-30); Chloride 101 mmol/L (98-107); Estimated CRCL calculation 216 ml/min; Estimated Glomerular Filt Rate > 60; Glucose 164 mg/dL (65-110); Magnesium 2.3 mg/dL (1.6-2.3); Potassium 3.9 mmol/L (3.4-5.0); Sodium 137 mmol/L (137-145)
[2022-09-28] MEDS: LANSOPRAZOLE ORAL SUSP 30 MG/10 ML ORAL.SUSP FEED TUBE (05:35)
[2022-09-28 05:51] LABS: Alveolar/Arterial O2 Gradient 59.8 mmHg; Fractional Inspired Oxygen 30 %; HCO3 ABG 28.4 mEq/l (22.0-26.0); Oxygen Saturation ABG 98.3 % (95.0-100.0); PCO2 ABG 38.1 mmHg (35.0-45.0); PO2 ABG 109.3 mmHg (80.0-100.0); PO2 FiO2 Ratio Arterial Blood 3.64 %; pH ABG 7.491 (7.350-7.450)
[2022-09-28 05:52] LABS: Device VENTILATOR; Modified Allen's Test Unable to perform; Site Drawn RIGHT RADIAL
[2022-09-28 05:53] LABS: Arterial Blood Gas PEEP 5 cmH2O; Arterial Blood Gas Tidal Volume 450 ml; Arterial Blood Gas Vent Mode CMV; Arterial Blood Gas Ventilator rate 16 /MIN
[2022-09-28] MEDS: levETIRAcetam ORAL SOL 500 MG/5 ML UDC FEED TUBE ×2 (07:53→20:00)
[2022-09-28] MEDS: FUROSEMIDE INJ 40 MG/4 ML VIAL 20 MG IV PUSH (07:53)
[2022-09-28] MEDS: APIXABAN 5 MG TABLET PO ×2 (07:53→20:00)
[2022-09-28] MEDS: MINERAL OIL/WHITE PETROLATUM OINTMENT 1 APPLIC EACH EYE ×2 (07:54→20:00)
--- NOTE | 2022-09-28 09:50 | P.PNINT_ITS ---
Progress Note: A&P Assessment and Plan (1) Encephalopathy: Code(s): G93.40 - Encephalopathy, unspecified Status: Acute Assessment and Plan: Encephalopathy likely multifactorial -anoxic injury, hypernatremia, hypotension, septic shock/infection, recent history of CVA, -off all sedation for many days -09/15 EEG: Abnormal record due to the presence of bihemispheric delta activity without evidence of any paroxysmal discharge.? These abnormalities are consistent with diffuse organic or metabolic encephalopathy without evidence of any electrical seizures. -Head CT 09/16 IMPRESSION:? 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 Merino, who stated that the EEG was not favorable and that she may have had some hypoxic injury -unable to obtain MRI on a mechanically ventilated patient and Wally although this would likely not change treatment or prognosis at this time 09/20 patient appears to be having myoclonic jerking. Repeat EEG This is an abnormal routine EEG due to the presence of diffuse slowing of background and occasional triphasic waves. These findings can be seen in the setting of metabolic encephalopathy. There are no electrographic seizures noted. Clinical correlation is recommended. Continue liquid Keppra (2) Acute respiratory failure: Qualifiers: Respiratory failure complication: unspecified whether with hypoxia or hypercapnia Qualified Code(s): J96.00 - Acute respiratory failure, unspecified whether with hypoxia or hypercapnia Code(s): J96.00 - Acute respiratory failure, unspecified whether with hypoxia or hypercapnia Status: Acute Assessment and Plan: Acute respiratory failure likely related to encephalopathy, possible aspiration, airway protection -intubated on 09/12/2022 Patient has been tolerating pressure support ventilation 10/5 on days and CMV mode of ventilation at night. 30% FiO2 and peep of 5 -continue bronchodilators -off all sedation since 09/15 -unable to wean from the ventilator due to her mental status and unable to protect her airway. - 09/22 tracheostomy done -will continue to place her on pressure support ventilation during the day and CMV mode at night -patient diuresed well with Lasix 20 mg IV x1 on 09/27 -will diurese again today with Lasix 20 mg IV x1 (3) Septic shock: Code(s): A41.9 - Sepsis, unspecified organism; R65.21 - Severe sepsis with septic shock Status: Acute Assessment and Plan: RESOLVED Septic shock likely related to pneumonia, UTI -patient was adequately resuscitated in the ER and ICU. -OFF all vasopressors -09/12: blood cultures - no growth / bottles -09/12: urine cultures -negative -09/12: MRSA screen is negative -09/12 sputum culture: Specimen is healthcare representative of lower respiratory tract. -continue cefepime, Flagyl (09/12) for total of 7 days -vancomycin was discontinued on 09/12 -09/12/2022: Echocardiogram showed EF of 60-65%, LV chamber dimension is normal, grade 1 diastolic dysfunction, RV systolic function is reduced, trace mitral and trace tricuspid valve regurgitation. Small anterior pericardial effusion (4) Acute renal failure: Qualifiers: Acute renal failure type: unspecified Qualified Code(s): N17.9 - Acute kidney failure, unspecified Code(s): N17.9 - Acute kidney failure, unspecified Status: Acute Assessment and Plan: RES
--- NOTE | 2022-09-28 11:05 | PCFNICU ---
ICU Rounding Note: Pt current nutrition is Jevity 1.5 at 65 ml;hr. Last recorded weight is 113.5 kg. Bowel Motility:+BM reported 09/28 Labs Reviewed:Glu 164, Cr 0.3 Meds Noted: Elena Stuart Skin: WNL Additional Notes: Patient is current with Trach and PEG. Tube feedings being tolerated of Jevity 1.5 at 65 ml/hr with water flush of 30 ml q 4 hours. Agree with diet orders. Following daily in ICU rounds. Will monitor weight, labs, tube feedings tolerance every Sunday and Sunday..
[2022-09-28 11:51] LABS: Glucose Point of Care 144 mg/dl (65-105)
--- NOTE | 2022-09-28 15:15 | PM.IMPN ---
Progress Note: A&P Assessment and Plan (1) Encephalopathy: Code(s): G93.40 - Encephalopathy, unspecified Status: Acute Assessment and Plan: Encephalopathy likely multifactorial -anoxic injury, hypernatremia, hypotension, septic shock/infection, recent history of CVA, -off all sedation for many days -09/15 EEG: Abnormal record due to the presence of bihemispheric delta activity without evidence of any paroxysmal discharge.? These abnormalities are consistent with diffuse organic or metabolic encephalopathy without evidence of any electrical seizures. -Head CT 09/16 IMPRESSION:? 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 Merino, who stated that the EEG was not favorable and that she may have had some hypoxic injury -unable to obtain MRI on a mechanically ventilated patient and Wally although this would likely not change treatment or prognosis at this time 09/20 patient appears to be having myoclonic jerking. Repeat EEG This is an abnormal routine EEG due to the presence of diffuse slowing of background and occasional triphasic waves. These findings can be seen in the setting of metabolic encephalopathy. There are no electrographic seizures noted. Clinical correlation is recommended. Continue liquid Keppra (2) Acute respiratory failure: Qualifiers: Respiratory failure complication: unspecified whether with hypoxia or hypercapnia Qualified Code(s): J96.00 - Acute respiratory failure, unspecified whether with hypoxia or hypercapnia Code(s): J96.00 - Acute respiratory failure, unspecified whether with hypoxia or hypercapnia Status: Acute Assessment and Plan: Acute respiratory failure likely related to encephalopathy, possible aspiration, airway protection -intubated on 09/12/2022 Patient has been tolerating pressure support ventilation 10/5 on days and CMV mode of ventilation at night. 30% FiO2 and peep of 5 -continue bronchodilators -off all sedation since 09/15 -unable to wean from the ventilator due to her mental status and unable to protect her airway. - 09/22 tracheostomy done -will continue to place her on pressure support ventilation during the day and CMV mode at night -patient diuresed well with Lasix 20 mg IV x1 on 09/27 -will diurese again today with Lasix 20 mg IV x1 (3) Septic shock: Code(s): A41.9 - Sepsis, unspecified organism; R65.21 - Severe sepsis with septic shock Status: Acute Assessment and Plan: RESOLVED Septic shock likely related to pneumonia, UTI -patient was adequately resuscitated in the ER and ICU. -OFF all vasopressors -09/12: blood cultures - no growth / bottles -09/12: urine cultures -negative -09/12: MRSA screen is negative -09/12 sputum culture: Specimen is senior customer service representative of lower respiratory tract. -continue cefepime, Flagyl (09/12) for total of 7 days -vancomycin was discontinued on 09/12 -09/12/2022: Echocardiogram showed EF of 60-65%, LV chamber dimension is normal, grade 1 diastolic dysfunction, RV systolic function is reduced, trace mitral and trace tricuspid valve regurgitation. Small anterior pericardial effusion (4) Acute renal failure: Qualifiers: Acute renal failure type: unspecified Qualified Code(s): N17.9 - Acute kidney failure, unspecified Code(s): N17.9 - Acute kidney failure, unspecified Status: Acute Assessment and Plan: RESOLVED Acute renal failure likely related to dehydration, hypotension, septic shock, ATN, infection, KALEIGH-inhibitor and Celebrex use at home Celebrex -urine lytes with prerenal -CK levels were mildly elevated -09/12 renal ultrasound: Bladder decompressed by a Brandon catheter and therefore not well evaluated. Otherwise, unremarkable renal
[2022-09-28 16:30] LABS: Glucose Point of Care 115 mg/dl (65-105)
[2022-09-29] VITALS (19 sets, daily range): BP systolic 113–134; BP diastolic 74–88; PULSE 75–110; RESP 18–26; TEMP 37.1–37.7; O2SAT 96–100
[2022-09-29 00:34] LABS: Glucose Point of Care 148 mg/dl (65-105)
[2022-09-29 05:52] LABS: Glucose Point of Care 156 mg/dl (65-105)
[2022-09-29] MEDS: LANSOPRAZOLE ORAL SUSP 30 MG/10 ML ORAL.SUSP FEED TUBE (05:52)
[2022-09-29] MEDS: levETIRAcetam ORAL SOL 500 MG/5 ML UDC FEED TUBE ×2 (08:04→20:02)
[2022-09-29] MEDS: APIXABAN 5 MG TABLET PO ×2 (08:05→20:02)
[2022-09-29] MEDS: MINERAL OIL/WHITE PETROLATUM OINTMENT 1 APPLIC EACH EYE ×2 (08:05→20:02)
--- NOTE | 2022-09-29 08:51 | WPDINTPN ---
Progress Note: A&P Assessment and Plan (1) Encephalopathy: Code(s): G93.40 - Encephalopathy, unspecified Status: Acute Assessment and Plan: Encephalopathy likely multifactorial -anoxic injury, hypernatremia, hypotension, septic shock/infection, recent history of CVA, -off all sedation for many days -09/15 EEG: Abnormal record due to the presence of bihemispheric delta activity without evidence of any paroxysmal discharge.? These abnormalities are consistent with diffuse organic or metabolic encephalopathy without evidence of any electrical seizures. -Head CT 09/16 IMPRESSION:? 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 Merino, who stated that the EEG was not favorable and that she may have had some hypoxic injury -unable to obtain MRI on a mechanically ventilated patient and Wally although this would likely not change treatment or prognosis at this time 09/20 patient appears to be having myoclonic jerking. Repeat EEG This is an abnormal routine EEG due to the presence of diffuse slowing of background and occasional triphasic waves. These findings can be seen in the setting of metabolic encephalopathy. There are no electrographic seizures noted. Clinical correlation is recommended. Continue liquid Keppra (2) Acute respiratory failure: Qualifiers: Respiratory failure complication: unspecified whether with hypoxia or hypercapnia Qualified Code(s): J96.00 - Acute respiratory failure, unspecified whether with hypoxia or hypercapnia Code(s): J96.00 - Acute respiratory failure, unspecified whether with hypoxia or hypercapnia Status: Acute Assessment and Plan: Acute respiratory failure likely related to encephalopathy, possible aspiration, airway protection -intubated on 09/12/2022 Patient has been tolerating pressure support ventilation 10/5 on days and CMV mode of ventilation at night. 30% FiO2 and peep of 5 -continue bronchodilators -off all sedation since 09/15 -unable to wean from the ventilator due to her mental status and unable to protect her airway. - 09/22 tracheostomy done -will continue to place her on pressure support ventilation during the day and CMV mode at night -patient diuresed well with Lasix 20 mg IV x1 on 09/27 and 09/28 (3) Septic shock: Code(s): A41.9 - Sepsis, unspecified organism; R65.21 - Severe sepsis with septic shock Status: Acute Assessment and Plan: RESOLVED Septic shock likely related to pneumonia, UTI -patient was adequately resuscitated in the ER and ICU. -OFF all vasopressors -09/12: blood cultures - no growth / bottles -09/12: urine cultures -negative -09/12: MRSA screen is negative -09/12 sputum culture: Specimen is pharmacy sales representative of lower respiratory tract. -continue cefepime, Flagyl (09/12) for total of 7 days -vancomycin was discontinued on 09/12 -09/12/2022: Echocardiogram showed EF of 60-65%, LV chamber dimension is normal, grade 1 diastolic dysfunction, RV systolic function is reduced, trace mitral and trace tricuspid valve regurgitation. Small anterior pericardial effusion (4) Acute renal failure: Qualifiers: Acute renal failure type: unspecified Qualified Code(s): N17.9 - Acute kidney failure, unspecified Code(s): N17.9 - Acute kidney failure, unspecified Status: Acute Assessment and Plan: RESOLVED Acute renal failure likely related to dehydration, hypotension, septic shock, ATN, infection, KALEIGH-inhibitor and Celebrex use at home Celebrex -urine lytes with prerenal -CK levels were mildly elevated -09/12 renal ultrasound: Bladder decompressed by a Brandon catheter and therefore not well evaluated. Otherwise, unremarkable renal sonogram findings. No evidence of hyd
[2022-09-29 11:19] LABS: Glucose Point of Care 141 mg/dl (65-105)
--- NOTE | 2022-09-29 11:39 | PCNFU ---
Nutrition Follow-Up Complete: Inadequate Oral Intake as related to mechanical vent as evidenced by NPO. Goal: Meet estimated nutritional needs Patient is meeting goal. No new goal. Pt current nutrition is Jevity 1.5 at 65 ml/hr Last recorded weight is 116.9 kg Bowel Motility:+BM reported 09/27 Labs Reviewed:no new labs to report. Meds Noted:Elena Stuart Skin:WNL Additional Notes: Patient is current with PEG and Trach. Tolerating tube feedings of Jevity 1.5 at 65 ml/hr. Tube feedings are providing 2145 kcals/91 gms protein/1087 ml water. Flush 30 ml q 4 hours. Agree with diet orders. Will monitor in ICU rounds and reassess weight, labs, tube feedings tolerance every Sunday and Sunday.
--- NOTE | 2022-09-29 11:40 | P.PNIM_ITS ---
Progress Note: A&P Assessment and Plan (1) Encephalopathy: Code(s): G93.40 - Encephalopathy, unspecified Status: Acute Assessment and Plan: Encephalopathy likely multifactorial -anoxic injury, hypernatremia, hypotension, septic shock/infection, recent history of CVA, -off all sedation for many days -09/15 EEG: Abnormal record due to the presence of bihemispheric delta activity without evidence of any paroxysmal discharge.? These abnormalities are consistent with diffuse organic or metabolic encephalopathy without evidence of any electrical seizures. -Head CT 09/16 IMPRESSION:? 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 Merino, who stated that the EEG was not favorable and that she may have had some hypoxic injury -unable to obtain MRI on a mechanically ventilated patient and Wally although this would likely not change treatment or prognosis at this time 09/20 patient appears to be having myoclonic jerking. Repeat EEG This is an abnormal routine EEG due to the presence of diffuse slowing of background and occasional triphasic waves. These findings can be seen in the setting of metabolic encephalopathy. There are no electrographic seizures noted. Clinical correlation is recommended. Continue liquid Keppra (2) Acute respiratory failure: Qualifiers: Respiratory failure complication: unspecified whether with hypoxia or hypercapnia Qualified Code(s): J96.00 - Acute respiratory failure, unspecified whether with hypoxia or hypercapnia Code(s): J96.00 - Acute respiratory failure, unspecified whether with hypoxia or hypercapnia Status: Acute Assessment and Plan: Acute respiratory failure likely related to encephalopathy, possible aspiration, airway protection -intubated on 09/12/2022 Patient has been tolerating pressure support ventilation 10/5 on days and CMV mode of ventilation at night. 30% FiO2 and peep of 5 -continue bronchodilators -off all sedation since 09/15 -unable to wean from the ventilator due to her mental status and unable to protect her airway. - 09/22 tracheostomy done -will continue to place her on pressure support ventilation during the day and CMV mode at night -patient diuresed well with Lasix 20 mg IV x1 on 09/27 and 09/28 (3) Septic shock: Code(s): A41.9 - Sepsis, unspecified organism; R65.21 - Severe sepsis with septic shock Status: Acute Assessment and Plan: RESOLVED Septic shock likely related to pneumonia, UTI -patient was adequately resuscitated in the ER and ICU. -OFF all vasopressors -09/12: blood cultures - no growth / bottles -09/12: urine cultures -negative -09/12: MRSA screen is negative -09/12 sputum culture: Specimen is inside sales account representative of lower respiratory tract. -continue cefepime, Flagyl (09/12) for total of 7 days -vancomycin was discontinued on 09/12 -09/12/2022: Echocardiogram showed EF of 60-65%, LV chamber dimension is norm al, grade 1 diastolic dysfunction, RV systolic function is reduced, trace mitral and trace tricuspid valve regurgitation. Small anterior pericardial effusion (4) Acute renal failure: Qualifiers: Acute renal failure type: unspecified Qualified Code(s): N17.9 - Acute kidney failure, unspecified Code(s): N17.9 - Acute kidney failure, unspecified Status: Acute Assessment and Plan: RESOLVED Acute renal failure likely relat
[2022-09-29 17:00] LABS: Glucose Point of Care 146 mg/dl (65-105)
[2022-09-30] VITALS (13 sets, daily range): BP systolic 108–153; BP diastolic 61–84; PULSE 60–111; RESP 18–26; TEMP 37.2–37.7; O2SAT 96–100
[2022-09-30] LABS: Glucose Point of Care 133 mg/dl (65-105)
[2022-09-30 03:27] LABS: Basophils Percent Auto 0.2 % (0.2-1.2); Hematocrit 33.8 % (37.0-47.0); Hemoglobin 11.2 g/dL (12.0-15.0); Immature Granulocyte Absolute 0.03 K/mm3 (0.00-0.031); Immature Granulocyte Percent A 0.5 % (0-0.5); Lymphocytes Absolute Auto 1.21 K/mm3 (0.9-3.2); Lymphocytes Percent Auto 20.8 % (18.3-44.2); Mean Corpuscular HGB Conc 33.1 g/dl (32-36); Mean Corpuscular Hemoglobin 32.4 pg (26-34); Mean Corpuscular Volume 97.7 fl (80-100); Monocytes Absolute Auto 0.5 K/mm3 (0.1-0.6); Monocytes Percent Auto 8.2 % (2.6-8.5); Neutrophils Absolute Auto 4.1 K/mm3 (1.3-6.7); Neutrophils Percent Auto 70.3 % (45.5-73.1); Platelet Count Result 257 k/mm3 (150-375); Red Blood Count 3.46 M/mm3 (4.2-5.4); Red Cell Distribution Width 14.8 % (11.5-14.5); White Blood Count 5.8 K/mm3 (4.5-10.0)
[2022-09-30 03:38] LABS: Alanine Aminotransferase 86 U/L (6-35); Albumin Level 3.6 g/dL (3.5-5.1); Alkaline Phosphatase 118 U/L (38-126); Anion Gap 1 mmol/L (8-16); Aspartate Amino Transferase 44 U/L (14-36); Bilirubin,Total 0.7 mg/dL (0.2-1.3); Blood Urea Nitrogen 18 mg/dL (7-17); Calcium 9.5 mg/dL (8.4-10.2); Carbon Dioxide 37 mmol/L (22-30); Chloride 99 mmol/L (98-107); Estimated CRCL calculation 219 ml/min; Estimated Glomerular Filt Rate > 60; Glucose 121 mg/dL (65-110); Magnesium 2.3 mg/dL (1.6-2.3); Potassium 3.6 mmol/L (3.4-5.0); Sodium 137 mmol/L (137-145)
[2022-09-30 06:18] LABS: Glucose Point of Care 161 mg/dl (65-105)
[2022-09-30] MEDS: LANSOPRAZOLE ORAL SUSP 30 MG/10 ML ORAL.SUSP FEED TUBE (06:19)
--- NOTE | 2022-09-30 08:21 | P.PNINT_ITS ---
Progress Note: A&P Assessment and Plan (1) Encephalopathy: Code(s): G93.40 - Encephalopathy, unspecified Status: Acute Assessment and Plan: Encephalopathy likely multifactorial -anoxic injury, hypernatremia, hypotension, septic shock/infection, recent history of CVA, -off all sedation for many days -09/15 EEG: Abnormal record due to the presence of bihemispheric delta activity without evidence of any paroxysmal discharge.? These abnormalities are consistent with diffuse organic or metabolic encephalopathy without evidence of any electrical seizures. -Head CT 09/16 IMPRESSION:? 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 Merino, who stated that the EEG was not favorable and that she may have had some hypoxic injury -unable to obtain MRI on a mechanically ventilated patient and Wally although this would likely not change treatment or prognosis at this time 09/20 patient appears to be having myoclonic jerking. Repeat EEG This is an abnormal routine EEG due to the presence of diffuse slowing of background and occasional triphasic waves. These findings can be seen in the setting of metabolic encephalopathy. There are no electrographic seizures noted. Clinical correlation is recommended. Continue liquid Keppra (2) Acute respiratory failure: Qualifiers: Respiratory failure complication: unspecified whether with hypoxia or hypercapnia Qualified Code(s): J96.00 - Acute respiratory failure, unspecified whether with hypoxia or hypercapnia Code(s): J96.00 - Acute respiratory failure, unspecified whether with hypoxia or hypercapnia Status: Acute Assessment and Plan: Acute respiratory failure likely related to encephalopathy, possible aspiration, airway protection -intubated on 09/12/2022 Patient has been tolerating pressure support ventilation 10/5 on days and CMV mode of ventilation at night. 30% FiO2 and peep of 5 -continue bronchodilators -off all sedation since 09/15 -unable to wean from the ventilator due to her mental status and unable to protect her airway. - 09/22 tracheostomy done -will continue to place her on pressure support ventilation during the day and CMV mode at night -patient diuresed well with Lasix 20 mg IV x1 on 09/27 and 09/28. Continue p.o. Lasix (3) Septic shock: Code(s): A41.9 - Sepsis, unspecified organism; R65.21 - Severe sepsis with septic shock Status: Acute Assessment and Plan: RESOLVED Septic shock likely related to pneumonia, UTI -patient was adequately resuscitated in the ER and ICU. -OFF all vasopressors -09/12: blood cultures - no growth / bottles -09/12: urine cultures -negative -09/12: MRSA screen is negative -09/12 sputum culture: Specimen is admissions representative of lower respiratory tract. -continue cefepime, Flagyl (09/12) for total of 7 days -vancomycin was discontinued on 09/12 -09/12/2022: Echocardiogram showed EF of 60-65%, LV chamber dimension is normal, grade 1 diastolic dysfunction, RV systolic function is reduced, trace mitral and trace tricuspid valve regurgitation. Small anterior pericardial effusion (4) Acute renal failure: Qualifiers: Acute renal failure type: unspecified Qualified Code(s): N17.9 - Acute kidney failure, unspecified Code(s): N17.9 - Acute kidney failure, unspecified Status: Acute Assessment and Plan: RESOLVED Ac
[2022-09-30] MEDS: FUROSEMIDE 20 MG TABLET FEED TUBE (08:38)
[2022-09-30] MEDS: POTASSIUM CHLORIDE 20 MEQ PACKET (FOR LIQUID) 40 MEQ FEED TUBE (08:38)
[2022-09-30] MEDS: APIXABAN 5 MG TABLET PO (08:39)
[2022-09-30] MEDS: levETIRAcetam ORAL SOL 500 MG/5 ML UDC FEED TUBE (08:39)
[2022-09-30] MEDS: MINERAL OIL/WHITE PETROLATUM OINTMENT 1 APPLIC EACH EYE (08:40)
--- NOTE | 2022-09-30 10:19 | PM.DS ---
DS: Admitting Diagnosis Discharge Date 09/30/22 Admitting Diagnosis encephalopathy, resp failure, septic shock DS: Discharge Diagnosis Discharge Diagnosis (1) Encephalopathy: Code(s): G93.40 - Encephalopathy, unspecified Status: Acute Assessment and Plan: Encephalopathy likely multifactorial -anoxic injury, hypernatremia, hypotension, septic shock/infection, recent history of CVA, -off all sedation for many days -09/15 EEG: Abnormal record due to the presence of bihemispheric delta activity without evidence of any paroxysmal discharge.? These abnormalities are consistent with diffuse organic or metabolic encephalopathy without evidence of any electrical seizures. -Head CT 09/16 IMPRESSION:? 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 Merino, who stated that the EEG was not favorable and that she may have had some hypoxic injury -unable to obtain MRI on a mechanically ventilated patient and Wally although this would likely not change treatment or prognosis at this time 09/20 patient appears to be having myoclonic jerking. Repeat EEG This is an abnormal routine EEG due to the presence of diffuse slowing of background and occasional triphasic waves. These findings can be seen in the setting of metabolic encephalopathy. There are no electrographic seizures noted. Clinical correlation is recommended. Continue liquid Keppra (2) Acute respiratory failure: Qualifiers: Respiratory failure complication: unspecified whether with hypoxia or hypercapnia Qualified Code(s): J96.00 - Acute respiratory failure, unspecified whether with hypoxia or hypercapnia Code(s): J96.00 - Acute respiratory failure, unspecified whether with hypoxia or hypercapnia Status: Acute Assessment and Plan: Acute respiratory failure likely related to encephalopathy, possible aspiration, airway protection -intubated on 09/12/2022 Patient has been tolerating pressure support ventilation 10/5 on days and CMV mode of ventilation at night. 30% FiO2 and peep of 5 -continue bronchodilators -off all sedation since 09/15 -unable to wean from the ventilator due to her mental status and unable to protect her airway. - 09/22 tracheostomy done -will continue to place her on pressure support ventilation during the day and CMV mode at night -patient diuresed well with Lasix 20 mg IV x1 on 09/27 and 09/28. Continue p.o. Lasix (3) Septic shock: Code(s): A41.9 - Sepsis, unspecified organism; R65.21 - Severe sepsis with septic shock Status: Acute Assessment and Plan: RESOLVED Septic shock likely related to pneumonia, UTI -patient was adequately resuscitated in the ER and ICU. -OFF all vasopressors -09/12: blood cultures - no growth 2/ bottles -09/12: urine cultures -negative -09/12: MRSA screen is negative -09/12 sputum culture: Specimen is customer response representative of lower respiratory tract. -continue cefepime, Flagyl (09/12) for total of 7 days -vancomycin was discontinued on 09/12 -09/12/2022: Echocardiogram showed EF of 60-65%, LV chamber dimension is normal, grade 1 diastolic dysfunction, RV systolic function is reduced, trace mitral and trace tricuspid valve regurgitation. Small anterior pericardial effusion (4) Acute renal failure: Qualifiers: Acute renal failure type: unspecified Qualified Code(s): N17.9 - Acute kidney failure, unspecified Code(s): N17.9 - Acute kidney failure, unspecified Status: Acute Assessment and Plan: RESOLVED Acute renal failure likely related to dehydration, hypotension, septic shock, ATN, infection, KALEIGH-inhibitor and Celebrex use at home Celebrex -urine lytes with prerenal -CK levels were mildly elevated -09/12 renal ultrasound:
[2022-09-30 13:30] LABS: Glucose Point of Care 119 mg/dl (65-105)
--- NOTE | 2022-09-30 14:18 | PC.NURSE ---
Report given to Cliff Mccullough
== END 2022-09-30 17:27 | DRG 5 ==
LOC: ANHED 10:06 → ANHICU 12:57
PROVIDERS: Internal Medicine; Internal Medicine Gastroenterology; Internal Medicine Nephrology; Otolaryngology; Physician Assistant; Admitting Provider Family Medicine; Emergency Provider Emergency Medicine; PCP Internal Medicine Gastroenterology; Visit Provider Chiropractor
PROC: 0B110F4 Bypass Trachea to Cutaneous with Tracheostomy Device, Open Approach (ICD-10-PCS; principal; 2022-09-22 10:00)
PROC: 0DH63UZ Insertion of Feeding Device into Stomach, Percutaneous Approach (ICD-10-PCS; CPT 43246; principal; 2022-09-22 16:45)
DX: A41.9 Sepsis, unspecified organism (principal); N17.0 Acute kidney failure with tubular necrosis; R65.21 Severe sepsis with septic shock; G93.41 Metabolic encephalopathy; J18.9 Pneumonia, unspecified organism; I69.354 Hemiplegia and hemiparesis following cerebral infarction affecting left non-dominant side; R13.19 Other dysphagia; E87.0 Hyperosmolality and hypernatremia; E86.0 Dehydration; J96.00 Acute respiratory failure, unspecified whether with hypoxia or hypercapnia; T17.990A Other foreign object in respiratory tract, part unspecified in causing asphyxiation, initial encounter; N39.0 Urinary tract infection, site not specified; F41.8 Other specified anxiety disorders; E78.5 Hyperlipidemia, unspecified; E87.1 Hypo-osmolality and hyponatremia; G89.4 Chronic pain syndrome; G47.33 Obstructive sleep apnea (adult) (pediatric); R82.90 Unspecified abnormal findings in urine; R74.01 Elevation of levels of liver transaminase levels; E66.01 Morbid (severe) obesity due to excess calories; Z68.41 Body mass index [BMI] 40.0-44.9, adult
CPT/HCPCS: 31500; 36415; 36556; 36600; 43246; 51702; 70450; 71045; 76705; 76775; 78226; 80048; 80053; 80074; 80076; 80307; 81001; 82140; 82375; 82436; 82550; 82565; 82570; 82607; 82728; 82746; 82805; 82948; 83050; 83540; 83550; 83605; 83735; 83935; 84100; 84133; 84295; 84300; 84443; 84484; 85025; 85027; 85055; 85610; 85730; 85999; 86140; 86738; 87040; 87070; 87081; 87086; 87205; 87449; 87899; 93005; 93922; 94003; 94640; 95816; 96361; 96365; 96367; 99291; A9270; A9537; C1751; C8929; C9113; J0171; J0690; J0692; J1815; J1940; J1953; J2270; J2704; J3010; J3370; J3480; J7030; J7070; J7120; Q9957